=== PATIENT | female | born 1935 | race Caucasian/White ===

== ENCOUNTER 2017-11-02 15:24 | Outpatient (CLI) | payer MEDICARE, OTHER | END 2017-11-02 15:25 | disposition home or self-care (01) | LOC: BICMAMMO 15:24 | PROVIDERS: ATTEND Family Medicine | DX: Z12.31 Encounter for screening mammogram for malignant neoplasm of breast (principal); Z85.038 Personal history of other malignant neoplasm of large intestine; R92.1 Mammographic calcification found on diagnostic imaging of breast | CPT/HCPCS: 77063; 77067 ==

== ENCOUNTER 2018-08-17 13:06 | Outpatient (CLI) | payer MEDICARE, OTHER ==
--- NOTE | 2018-08-17 16:10 | BD ---
DEXA BONE MINERAL DENSITOMETRY STUDY: 08/17/2018 HISTORY: Postmenopausal. Asymptomatic menopausal state. FINDINGS: LUMBAR SPINE BMD (g/cm2) T-SCORE Z-SCORE L1 0.846 -1.2 1.1 L2 0.942 -0.8 1.9 L3 0.887 -1.8 1.0 L4 1.032 -0.3 2.6 L1-L4 0.936 -1.0 1.7 LEFT FEMORAL NECK 0.606 -2.2 0.2 TOTAL FEMUR 0.799 -1.2 1.0 There has been an interval increase in the bone mineral density of 10.6% when compared to the study o n 08/06/2012 and a 5.3% increase in bone mineral density of the left femoral neck compared to prior s tudy. IMPRESSION: 1. Moderate osteopenia of the left femoral neck, indicating a four-fold increased risk for fracture. 2. Mild osteopenia of the lumbar spine, indicating a two-fold increased risk for fracture. 3. The 10-year major osteoporotic risk fracture is 23% with a 10-year hip fracture risk of 6.9%. POS: EMANUEL
== END 2018-08-17 13:07 | disposition home or self-care (01) ==
LOC: BICMAMMO 13:06
PROVIDERS: ATTEND Family Medicine
DX: Z00.00 Encounter for general adult medical examination without abnormal findings (principal); Z78.0 Asymptomatic menopausal state; M85.89 Other specified disorders of bone density and structure, multiple sites
CPT/HCPCS: 77080

== ENCOUNTER 2018-11-03 13:51 | Outpatient (CLI) | payer MEDICARE, OTHER ==
--- NOTE | 2018-11-03 14:34 | MMO ---
Bilateral MAMMO Bilat Screen [facility]. CLINICAL HISTORY: Patient is 83 years old and is seen for screening. The patient has no family history of breast cancer. The patient has a history of colon cancer in 2009. VIEWS: The views performed were: bilateral craniocaudal with tomosynthesis and bilateral mediolateral oblique with tomosynthesis. FILMS COMPARED: The present examination has been compared to prior imaging studies performed at [facility] on 10/16/2011, 10/21/2012, 10/25/2013, 10/27/2014, 10/30/2015, 10/30/2016 and 11/02/2017, and at [facility] on 12/15/2008 and 12/18/2009. MAMMOGRAM FINDINGS: There are scattered fibroglandular densities. There are vascular calcifications seen in both breasts. There are no suspicious masses, suspicious calcifications, or new areas of architectural distortion. IMPRESSION: THERE IS NO MAMMOGRAPHIC EVIDENCE OF MALIGNANCY. A ROUTINE FOLLOW-UP MAMMOGRAM IN 1 YEAR IS RECOMMENDED. THE RESULTS OF THIS EXAM WERE SENT TO THE PATIENT. ACR BI-RADS Category 2 - Benign finding MAMMOGRAPHY NOTE: 1. A negative mammogram report should not delay a biopsy if a dominant of clinically suspicious mass is present. 2. Approximately 10% to 15% of breast cancers are not detected by mammography. 3. Adenosis and dense breasts may obscure an underlying neoplasm.
== END 2018-11-03 13:52 | disposition home or self-care (01) ==
LOC: BICMAMMO 13:51
PROVIDERS: ATTEND Family Medicine
DX: Z12.31 Encounter for screening mammogram for malignant neoplasm of breast (principal); Z85.038 Personal history of other malignant neoplasm of large intestine
CPT/HCPCS: 77063; 77067

== ENCOUNTER 2019-05-06 17:03 | Inpatient (IN) | payer MEDICARE, OTHER ==
--- NOTE | 2019-05-06 19:15 | CT ---
CT Stone Protocol: 05/06/2019 6:43 PM HISTORY: Left-sided abdominal pain and urinary tract infection; history of colon cancer. COMPARISON: 08/24/2018 TECHNIQUE: Multiple contiguous axial images were obtained and a CT of the abdomen and pelvis without IV contrast . Coronal and sagittal reformats were performed. FINDINGS: This examination is limited for the evaluation of solid organs and vascular structures due to the lac k of intravenous contrast. Lower Chest: within normal limits. Abdomen: Liver: within normal limits. Bile Ducts: Normal caliber. Gallbladder: Hyperdensity in the dependent aspect likely represents gallstones. Pancreas: The pancreatic duct is severely dilated but stable with a large calcification in the region of pancreatic head measuring 8 mm in size. There is no significant residual parenchymal tissue remaining. Calcific lesions are seen scattered throughout the thyroid gland. Spleen: within normal limits. Adrenals: within normal limits. Kidneys: Moderate left hydronephrosis. Nonobstructing calcifications in the left kidney measuring up to 4 mm in size. No right hydronephrosis. A small hyperdense cyst is seen in the left kidney. Pelvis: Reproductive Organs: The uterus is small and atrophic. There is stable soft tissue density associated with surgical clips in the presacral space which likely represents postsurgical change. Ureters: 5 mm calcification in the distal left ureter at the ureterovesical junction with moderate hy droureter. Bladder: within normal limits. Bowel: Normal caliber. There is an ostomy in the left lower quadrant of the abdomen. Mesenteric Lymph Nodes: No enlarged mesenteric lymph nodes. Peritoneum: No ascites or free air, no fluid collection. Vessels: Atherosclerotic calcifications in the aorta Retroperitoneum: within normal limits. Abdominal Wall: within normal limits. Bones: Degenerative changes in the spine. IMPRESSION: 1. Left distal ureteral calcification with moderate left hydronephrosis 2. Nonobstructing left renal calcifications 3. Cholelithiasis 4. Pancreatic duct calcifications with enlargement of the pancreatic duct remains stable.
[2019-05-06] MEDS ORDERED: Sodium Chloride 0.9% 100 ML ONE (21:03)
[2019-05-06] MEDS ORDERED: cefTRIAXone\\ROCEPHIN 1 GM VIAL ONE (21:03)
[2019-05-06 21:30] LABS: #Lymphocytes 1.1 thou/uL (1.20-3.40); #Monocytes 0.8 thou/uL (0.11-0.59); #Neutrophils 6.2 thou/uL (1.40-6.50); %Basophils 0.5 % (0.0-1.0); %Eosinophils 0.4 % (0.0-10.0); %Monocytes 10.3 % (0.0-10.0); %Neutrophils 75.7 % (42.0-75.0); Mean Corpuscular HGB CONC 33.8 g/dL (32.0-36.0); Mean Corpuscular Volume 97.4 fL (78.0-98.0); Mean Platelet Volume 7.4 fL (7.4-10.4); Platelet Count 163 thou/uL (130-400); RBC Distribution Width 12.2 % (11.5-14.5); Red Blood Cell (RBC) Count 3.33 mill/uL (4.20-5.40); White Blood Cell (WBC) Count 8.2 thou/uL (4.8-10.8)
--- NOTE | 2019-05-06 21:41 | RAD ---
EXAM: Single view of the chest HISTORY: Left chest pain COMPARISON: 01/21/2015 FINDINGS: Single view of the chest shows a normal sized cardiomediastinal silhouette. The Mediport i s unchanged in position. Increased interstitial markings are present. There is no evidence of consolidation, mass, or pleural effusion. Degenerative changes are seen in the spine. IMPRESSION: No evidence of acute cardiopulmonary disease
[2019-05-06 21:54] LABS: ALT (SGPT) 16 U/L (8-55); AST (SGOT) 21 U/L (5-34); Albumin 3.9 g/dL (3.4-4.8); Alkaline Phosphatase 53 U/L (40-110); Anion Gap 15 mmol/L (10-20); BUN (Urea Nitrogen) 31 mg/dL (9.8-20.1); Bilirubin, Total 0.5 mg/dL (0.2-1.2); Calc. Creatinine Clearance 0 mL/min (70-130); Carbon Dioxide 17 mmol/L (23-31); Chloride 110 mmol/L (98-107); Estimated GFR-MDRD 16; Globulin 2.5 g/dL (2.4-3.5); Glucose 106 mg/dL (83-110); Potassium 4.5 mmol/L (3.5-5.1); Protein, Total 6.4 g/dL (6.0-8.3); Sodium 137 mmol/L (136-145)
[2019-05-06] MEDS ORDERED: Ondansetron ODT 4 MG TAB SL PRN (22:20)
[2019-05-06] MEDS ORDERED: Acetaminophen 325 MG TAB PO PRN (22:20)
[2019-05-06] MEDS ORDERED: Ondansetron PF 4 MG/2 ML Vial IVP PRN (22:20)
[2019-05-06] MEDS ORDERED: Sodium Chloride 0.9% 1,000 ML IV SCH (22:20)
[2019-05-06 22:29] VITALS: BMI 23.6
[2019-05-07] MEDS: cefTRIAXone\\ROCEPHIN 1 GM in Sodium Chloride 0.9% 100 ML IVPB SCH (07:51)
[2019-05-07] MEDS ORDERED: Iothalamate Meglumine 60% 50 ML VIAL FS ONE (07:56)
[2019-05-07] MEDS ORDERED: ePHEDrine 50 MG/ML VIAL ONE (08:00)
[2019-05-07] MEDS ORDERED: PROPOFOL 200 MG/20 ML VIAL ONE (08:00)
[2019-05-07] MEDS ORDERED: Lidocaine 1% PF 5 ML VIAL ONE (08:00)
[2019-05-07] MEDS ORDERED: Fentanyl 100 MCG/2 ML VIAL ONE (08:04)
[2019-05-07] MEDS ORDERED: Morphine 2 MG/ML SYRINGE SLOW IVP PRN (08:57)
[2019-05-07] MEDS ORDERED: Phenazopyridine HCl 97.5 MG TABLET PO PRN (08:57)
[2019-05-07] MEDS ORDERED: HYDROcodone/Acetaminophen 5/325 mg Tablet PO PRN ×2 (08:57)
[2019-05-07] MEDS ORDERED: Morphine 4 MG/ML VIAL SLOW IVP PRN (08:57)
[2019-05-07] MEDS ORDERED: diphenhydrAMINE 50 MG/ML VIAL IVP PRN (08:57)
[2019-05-07] MEDS ORDERED: Promethazine HCl 25 MG/ML VIAL SLOW IVP PRN (08:59)
[2019-05-07] MEDS ORDERED: Ondansetron HCl/PF 4 MG/2 ML Vial IVP PRN (08:59)
[2019-05-07] MEDS ORDERED: Promethazine HCl 25 MG/ML VIAL IM PRN (08:59)
[2019-05-07] MEDS ORDERED: Famotidine/PF 20 mg/2ml Vial SLOW IVP SCH (09:00)
--- NOTE | 2019-05-07 09:19 | CON ---
DATE OF CONSULTATION: 05/07/2019 PRIMARY UROLOGIST: Brandon Bennett MD REASON FOR CONSULT: Left ureteral calculi. HISTORY OF PRESENT ILLNESS: Ms. Moss is a pleasant 84-year-old female, with history of rectal cancer, status post neoadjuvant chemo, APR with negative margins. She is followed by local GI, as well as [facility] for her colorectal cancer. Her primary urologist is Dr. Bennett. She states that she called his office on Thursday, as she was having flank pain. patient was transitioned to the emergency room. She does relate that she was seen by her GI specialist, she was unclear if she was having discomfort from a recent colonoscopy versus an obstructing ureteral stone. She states that Dr. Bennett has been aware of her ureteral calculi, scheduled for surgery this Thursday, however, due to persistent discomfort, she presented to the emergency room. CT in the emergency room demonstrates left distal ureteral calculi near the UVJ with hydronephrosis. She is afebrile with no evidence of leukocytosis, however, does have acute renal insufficiency from partially obstructing ureteral calculi. Currently, she is resting comfortably. Denies fever or chills. PAST MEDICAL HISTORY: Includes history of colorectal cancer, history of arrhythmia, status post ablation, hypercholesteremia, history of recurrent kidney stone. PAST SURGICAL HISTORY: APR, permanent colostomy, heart ablation, right ankle surgery, status post left ureteroscopy, laser lithotripsy, 4.6 x 24 double-J ureteral stent placement by Dr. Bennett in November of 2016. ALLERGIES: TO SULFA. SOCIAL HISTORY: She is a . Denies tobacco, illicit drugs, or alcohol use. HOME MEDICATIONS: Include; 1. Viactiv. 2. Centrum. 3. MiraLAX. 4. Diltiazem. 5. Crestor. 6. Aspirin. 7. Premarin. FAMILY HISTORY: Negative. REVIEW OF SYSTEMS: Ten-point review of systems as above, otherwise noncontributory. PHYSICAL EXAMINATION: VITAL SIGNS: Her vital signs are stable with temperature 99.7, pulse 64, respiratory rate 18, and blood pressure 134/93. GENERAL: The patient appears to be in no acute distress. HEENT: Unremarkable. HEART: Regular rate. LUNGS: Clear. ABDOMEN: Soft, nontender, and nondistended. No rigidity. Colostomy with moderately hard stool. GENITOURINARY: Severe vaginal atrophy. EXTREMITIES: No cyanosis or clubbing. Trace pedal edema. PSYCHIATRIC: Appears to be appropriate and intact. NEUROLOGIC: No gross focal deficits of concern. PERTINENT LABORATORY AND IMAGING DATA: White count 8, hemoglobin 12, and platelet 163. Creatinine is 2.8. Baseline creatinine is from 0.9 to 1.6. UA is contaminated, 4 to 6 epithelials, 11 to 20 wbc's, 0 to 3 rbc's, moderate leukocytes, negative nitrites. Culture has been obtained by the ER. CT of the stone protocol, which I reviewed myself and which compared to May [address] with contrast was obtained. There is left hydronephrosis due to distal ureteral calculi measuring about 5 to 7 mm near the left UVJ. There are nonobstructing left kidney stones as well x2. The right kidney is smaller than the left kidney, with what appears to be extrarenal pelvis. The morphology is confirmed on prior CT scan with contrast in May 2016, which I reviewed myself; demonstrating symmetric nephrogram IMPRESSION AND PLAN: Ms. Moss is a pleasant 84-year-old female with history of recurrent kidney stone, history of left ureteral calculi, scheduled for surgery with Dr. Bennett this Thursday. However, presented to the emergency room due to progressive intractable discomfort with renal insufficiency. The patient has been n.p.o., Rocephin provided, plan OR with cysto, left retrograde stent. Informed the patient that we will observe her for the next 24 to 48 hours to monitor renal function recovery, which we anticipate and may follow up with her urologist. Job ID: [id number] [facility]
--- NOTE | 2019-05-07 09:19 | OP ---
DATE OF PROCEDURE: 05/07/2019 PREOPERATIVE DIAGNOSIS: History of recurrent kidney stone, left hydroureteronephrosis with acute renal insufficiency secondary to 6-to 7-mm distal ureteral calculi. POSTOPERATIVE DIAGNOSIS: History of recurrent kidney stone, left hydroureteronephrosis with acute renal insufficiency secondary to 6-to 7-mm distal ureteral calculi. PROCEDURES PERFORMED: Cystoscopy, left retrograde pyelogram, 6 x 24 double-J ureteral stent exchange, excisional biopsy, removal of incidental papillary lesion suspicious for transitional cell carcinoma, fulguration of biopsy site. ANESTHESIA: LMA. COMPLICATIONS: None apparent. ESTIMATED BLOOD LOSS: Minimal/none. DISPOSITION: To recovery room in stable condition. DRAINS: A 6 x 24 stent, 18-Peruvian 30 mL three-way Aragon catheter, CBI port plugged, to gravity bag. INTRAOPERATIVE FINDINGS: 1. 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 2. Severe vaginal atrophy. 3. Obstructing left ureteral calculi. 4. Incidental left 7-8-mm papillary bladder lesion consistent with transitional cell carcinoma, about 1 cm lateral to the left UO. SPECIMEN: Bladder biopsy. INDICATIONS FOR PROCEDURE AND HISTORY: Ms. Moss is a pleasant 84-year-old female with history of colorectal cancer, recurrent kidney stones, followed by Dr. Bennett. She was scheduled for treatment of her left ureteral calculi this Thursday, however, she was transitioned to the emergency room due to progressive worsening of her left flank pain by Dr. Bennett. She presented to the emergency room with acute kidney injury, no evidence of fever, chills, or leukocytosis. She has been fully informed regarding indications for ureteral stent, and desired to proceed. Risks and complications and indications were reviewed with the patient in detail. DESCRIPTION OF PROCEDURE: The patient was taken to the operating room and placed in dorsal lithotomy position with the genital area prepped and draped in the usual surgical sterile fashion. A 22-Peruvian cystoscope was utilized. She has severe atrophia of the vaginal region due to radiation, her urethra meatus is subtle. A 22-Peruvian cystoscope was passed. Upon entering the bladder, there is diffuse prominent vascularity of the bladder mucosa consistent with radiation cystitis. The right UO is identified, and in normal orthotopic position, left UO was patulous. We surveyed the bladder, which demonstrated incidental papillary bladder tumor about 1 cm lateral to the left UO consistent with transitional cell carcinoma. I did not see any other tumor of concern. At this time, we intubated the left UO with a 5-Peruvian open-ended catheter. We gently performed a retrograde pyelogram demonstrating a filling defect in the left distal ureter consistent with the stones. Tortuosity of the proximal ureter was noted. We were able to negotiate a 0.35 Sensor wire to the left upper pole and a 6 x 24 double-J ureteral stent placed without difficulty. At this time we transitioned to sterile water irrigation and obtained a cold cup biopsy/removal of the bladder tumor en bloc. The bed of the tumor was fulgurated with endoscopic Bugbee. An 18-Peruvian three-way Aragon catheter was placed as she does have significant radiation cystitis changes. Urine output is pink tinged to clear. She will continue her broad-spectrum antibiotic therapy until urine culture is finalized. Anticipate Aragon catheter can be removed in a few days pending her clinical course. hold anticoagulation for now and monitor her urine output for hematuria. will inform patient's clinical history, intraoperative findings to her primary urologist, Dr. Bennett, when he is back on service. Job ID: [id number] [facility]
[2019-05-07] MEDS: Trospium 20 MG TAB PO SCH ×2 (10:09→20:36)
[2019-05-07] MEDS: Docusate 100 MG CAP PO SCH ×2 (10:10→20:36)
--- NOTE | 2019-05-07 11:04 | RAD ---
RETROGRADE IVP: A single fluoroscopic image is presented from the OR. INDICATION: Intraoperative imaging. Acute cystitis. FINDINGS: The single image shows a double pigtail left ureteral stent in position. POS: [facility]
--- NOTE | 2019-05-07 11:54 | HP ---
PRIMARY CARE PHYSICIAN: Cornelio Burroughs MD CHIEF COMPLAINT: Worsening left flank pain. HISTORY OF PRESENT ILLNESS: An 84-year-old female with past medical history significant for rectal cancer, status post surgery and colostomy as well as neoadjuvant chemotherapy and radiation therapy, who presented with acute onset of worsening left flank pain. The patient with known history of nephrolithiasis, follows up with Dr. Bennett. There was a concern of complication of recently performed colonoscopy at [facility], hence the patient was evaluated with CT scan of the abdomen, which showed left ureteric stone at the UV junction with hydronephrosis. The patient also reported poor oral intake. There was no history of fever, chills, change in mental status, dizziness, leg swelling, but the patient admitted to increasing consistency of the stool via the colostomy. The patient denied dysuria, but she is, however, incontinent of urine. Urology consult was obtained and the patient was taken to OR for further treatment. She is status post double-J stent placement as well as biopsy of incidental papular lesion in the bladder as well as fulguration of the biopsy site. The patient also was noticed to have acute increase in creatinine from baseline 1.3 to 2.4. The patient reports improvement of flank pain post the urological procedure. Currently, pain is 0/10 down from 10/10 on presentation. PAST MEDICAL HISTORY: 1. Colorectal cancer, status post surgery. 2. Status post colostomy. 3. History of arrhythmia, status post ablation. 4. Hyperlipidemia. 5. History of recurring kidney stones. PAST SURGICAL HISTORY: 1. Permanent colostomy. 2. Heart ablation. 3. Right ankle surgery. 4. Prior cystoscopy with ureteroscopy and laser lithotripsy and double-J stent placement. FAMILY HISTORY: Reviewed, but noncontributory. SOCIAL HISTORY: The patient lives with family. Denied alcohol smoking or recreational drug use. The patient's daughter is the surrogate decision maker. The patient wants to be full code. ALLERGIES: SULFA. CURRENT HOME MEDICATIONS: 1. Premarin one vaginal application every other day. 2. Aspirin 325 daily. 3. Calcium with vitamin D3 one tablet p.o. b.i.d. 4. Diltiazem 60 mg p.o. b.i.d. 5. Multivitamin with iron one tablet p.o. daily. 6. MiraLAX 17 g p.o. daily. 7. Potassium chloride 20 mEq p.o. daily. 8. Crestor 10 mg p.o. daily. REVIEW OF SYSTEMS: Twelve-point review of system performed was negative other than pertinent positives and negatives included in the History of Present Illness. PHYSICAL EXAMINATION: VITAL SIGNS: Temperature 98.6, pulse 66, respiratory rate 18, SpO2 of 97% on room air, and blood pressure is 124/68. GENERAL: Healthy-looking elderly female, in no distress. Afebrile. Anicteric. Acyanotic. HEENT: Normocephalic, atraumatic. Oral mucosa is dry. NECK: Supple. Nontender with good range of motion. CARDIOVASCULAR: Regular rhythm and rate with normal heart sounds 1 and 2. RESPIRATORY: Good air entry bilaterally with no crackle or rhonchi or use of accessory muscles. GASTROINTESTINAL: Full, soft, nontender, and nondistended with normal bowel sounds. Left lower quadrant colostomy noted with hard stool in the bag. UROGENITAL: Aragon catheter in place draining bloody urine. EXTREMITIES: Grossly normal looking, atraumatic with no edema or erythema. CENTRAL NERVOUS SYSTEM: Conscious, alert, oriented x3 with appropriate mental status. Cranial nerves II through XII are grossly intact. DIAGNOSTIC DATA: CBC performed on May 06 showed WBC count of 8.2, hemoglobin of 11.0, MCV of 97.4, and platelets of 163. CMP performed on May 06 showed sodium 137, potassium 4.5, chloride 110, CO2 of 17, BUN 31, creatinine 2.82, glucose 106, calcium 9.0, total bilirubin 0.5, AST 21, ALT 16, alkaline phosphatase 53, total protein 6.4, and albumin 3.9. CT scan of the abdomen and pelvis stone protocol showed left distal ureteral calcification with moderate left hydronephrosis, nonobstructing left renal calcification, cholelithiasis, pancreatic duct calcification with enlargement of the pancreatic duct, which has remained stable. EKG showed normal sinus rhythm with rate of 68. No obvious ischemic changes were noted. ASSESSMENT: 1. Nephrolithiasis with left hydronephrosis. 2. Acute on chronic renal failure: Most likely due to obstructive uropathy with possible contribution from prerenal etiology due to dehydration and from poor oral intake. 3. Metabolic acidosis. 4. Left flank pain: Resolved. 5. Colorectal cancer, status post resection with colostomy. 6. Incidental finding of bladder lesion concerning for cancer, status post biopsy and fulguration of bladder biopsy sites. 7. Physical deconditioning. PLAN: 1. Continue empirical antibiotic therapy with Rocephin. 2. Get urinalysis with urine culture if indicated. 3. Start IV fluid therapy with sodium bicarb containing IV fluids given hyperchloremic metabolic acidosis. 4. Monitor renal function. 5. Consult PT and OT for restorative therapy. 6. Other treatment as per urologist. 7. Restart diet. [place] oral intake advised. 8. Code status, full code. Daughter is the surrogate decision maker. 9. Repeat renal function panel in the morning. Further treatment to follow depending on hospital course. Job ID: [id number]
[2019-05-07 12:26] LABS: Albumin 3.8 g/dL (3.4-4.8); Anion Gap 14 mmol/L (10-20); BUN (Urea Nitrogen) 31 mg/dL (9.8-20.1); BUN/Creatinine Ratio 11.65; Calc. Creatinine Clearance 15 mL/min (70-130); Calcium 8.7 mg/dL (7.8-10.44); Carbon Dioxide 18 mmol/L (23-31); Chloride 111 mmol/L (98-107); Estimated GFR-MDRD 17; Glucose 98 mg/dL (83-110); Phosphorus 4.3 mg/dL (2.3-4.7); Potassium 3.8 mmol/L (3.5-5.1); Sodium 139 mmol/L (136-145)
[2019-05-07 13:09] LABS: Bilirubin Negative (Negative); Blood, Urine 3+ (Negative); Glucose, Urine (Dipstick) Normal (Negative); Leukocyte 75 Leu/uL (Negative); Nitrite Negative (Negative); Protein, Urine (Dipstick) 50 mg/dL (Neg-Trace); RBC/HPF Greater than 50 HPF (0-3); Squamous Epithelial 0-3 HPF (0-3); Urobilinogen Normal mg/dL (Less than 2); WBC/HPF 21-50 HPF (0-3)
[2019-05-07 13:10] LABS: Bacteria/HPF 1+ HPF (None Seen)
[2019-05-07 13:11] LABS: Clarity Hazy (Clear)
[2019-05-07 13:13] LABS: Urine Culture Reflex Yes Yes
[2019-05-07] MEDS ORDERED: Prevnar 13-Val Conj/PF 0.5 ML SYRINGE IM ONE (21:00)
[2019-05-08] MEDS: Sodium Bicarbonate 75 MEQ in Sodium Chloride 0.45% 1,000 ML IV SCH ×3 (01:57→21:27)
[2019-05-08 05:47] LABS: #Eosinphils 0.2 thou/uL (0.0-0.7); #Lymphocytes 1.5 thou/uL (1.20-3.40); #Monocytes 0.6 thou/uL (0.11-0.59); #Neutrophils 2.7 thou/uL (1.40-6.50); %Basophils 0.8 % (0.0-1.0); %Eosinophils 3.2 % (0.0-10.0); %Lymphocytes 30.1 % (21.0-51.0); %Monocytes 11.5 % (0.0-10.0); %Neutrophils 54.4 % (42.0-75.0); Hemoglobin 10.1 g/dL (12.0-16.0); Mean Corpuscular HGB CONC 33.7 g/dL (32.0-36.0); Mean Corpuscular Hemoglobin 32.9 pg (27.0-31.0); Mean Corpuscular Volume 97.8 fL (78.0-98.0); Mean Platelet Volume 7.6 fL (7.4-10.4); Platelet Count 149 thou/uL (130-400); RBC Distribution Width 12.2 % (11.5-14.5); Red Blood Cell (RBC) Count 3.08 mill/uL (4.20-5.40)
[2019-05-08 06:09] LABS: Anion Gap 13 mmol/L (10-20); BUN (Urea Nitrogen) 28 mg/dL (9.8-20.1); Calc. Creatinine Clearance 17 mL/min (70-130); Calcium 7.9 mg/dL (7.8-10.44); Carbon Dioxide 21 mmol/L (23-31); Chloride 114 mmol/L (98-107); Estimated GFR-MDRD 20; Glucose 89 mg/dL (83-110); Potassium 4.1 mmol/L (3.5-5.1); Sodium 144 mmol/L (136-145)
[2019-05-08] MEDS: cefTRIAXone\\ROCEPHIN 1 GM in Sodium Chloride 0.9% 100 ML IVPB SCH (08:09)
[2019-05-08] MEDS: Docusate 100 MG CAP PO SCH ×2 (08:13→20:28)
[2019-05-08] MEDS: Famotidine/PF 20 mg/2ml Vial SLOW IVP SCH (08:15)
[2019-05-08] MEDS: Cepastat Lozenges 1 LOZ PO PRN (08:17)
--- NOTE | 2019-05-08 12:08 | PRG ---
DATE OF SERVICE: 05/08/2019 SUBJECTIVE: The patient is feeling better. Flank pain resolved. OBJECTIVE: VITAL SIGNS: Stable. She is afebrile. Is and Os, 480 in and 1450 out. Urine output is ritu, pink-tinged. ABDOMEN: Soft, nontender, nondistended. LABORATORY DATA: White count 5, hemoglobin 10, platelet 149. BUN 28, creatinine 2.3. Admitting creatinine is 2.8. Urine culture, preliminary, negative. Currently, on Rocephin. IMPRESSION AND PLAN: 1. Ms. Moss is an 84-year-old female with history of recurrent kidney stone, presented due to left flank pain, distal ureteral stone, postop day #1, status post cysto, left retrograde stent, concomitant bladder tumor, excisional biopsy, fulguration. Pathology is pending. 2. Cystoscopy demonstrated radiation cystitis changes. Continue indwelling Aragon catheter and antibiotic therapy. 3. Acute renal insufficiency, multifactorial. Continue to monitor her renal function, avoid nephrotoxins. Await pathology. The patient desires to be observed until Dr. Bennett's return on Thursday, which is reasonable as we are monitoring her renal function for recovery. Continue indwelling Aragon catheter for now. Job ID: [id number]
--- NOTE | 2019-05-08 19:19 | PDOC.HOSPP ---
- Subjective Encounter Date: 05/08/19 Encounter Time: 11:18 Subjective: 84 y/o female with rectal cancer admitted with left flank pain. Found to have hydronephrosis and she is s/p stent placement. feeling better. pain has subsided. No fever. - Objective Vital Signs & Weight: Vital Signs (12 hours) Temp Pulse Resp BP Pulse Ox 05/08/19 16:05 99.6 F 71 16 146/82 H 99 05/08/19 11:17 98.6 F 72 16 101/63 97 05/08/19 08:00 97 05/08/19 07:46 98.7 F 59 L 16 146/79 H 97 Weight Weight 125 lb I&O: 05/07/19 05/08/19 05/09/19 06:59 06:59 06:59 Intake Total 1025 480 960 Output Total 1450 Balance 1025 -970 960 Result Diagrams: 05/08/19 05:24 05/08/19 05:24 Hospitalist ROS - Medication Medications: Active Medications Generic Name Dose Route Start Last Admin Trade Name Freq PRN Reason Stop Dose Admin Diltiazem HCl 60 mg 05/08/19 09:00 05/08/19 08:13 Cardizem PO 60 mg BID JAM Administration Docusate Sodium 100 mg 05/07/19 09:00 05/08/19 08:13 Colace PO 100 mg BID JAM Administration Famotidine 20 mg 05/08/19 09:00 05/08/19 08:15 Pepcid SLOW IVP 20 mg DAILY JAM Administration Ceftriaxone Sodium 1 gm/ 100 mls @ 200 mls/hr 05/07/19 09:00 05/08/19 08:09 Sodium Chloride IVPB 100 mls DAILY JAM Administration Sodium Bicarbonate 75 meq/ 1,075 mls @ 125 mls/hr 05/07/19 11:30 05/08/19 12: 40 Sodium Chloride IV 1,075 mls INF JAM Administration Throat Lozenges 1 cordelia 05/08/19 06:49 05/08/19 08:17 Cepastat Lozenges PO 1 cordelia PRN PRN Administration SORE THROAT Trospium 20 mg 05/07/19 09:00 05/07/19 20:36 Trospium PO 20 mg BID JAM Administration - Exam General Appearance: awake alert Eye: anicteric sclera ENT: normocephalic atraumatic, moist mucosa Neck: supple, symmetric Respiratory: no wheezes, no rales, normal chest expansion Gastrointestinal: soft, non-tender, non-distended, normal bowel sounds Gastrointestinal - other findings: colostomy bag in place Neurological: cranial nerve grossly intact, no focal deficits Psychiatric: normal affect, A&O x 3 Hosp A/P (1) Hydronephrosis of left kidney Code(s): N13.30 - UNSPECIFIED HYDRONEPHROSIS Status: Acute (2) Nephrolithiasis Status: Acute (3) Status post colostomy Code(s): Z93.3 - COLOSTOMY STATUS Status: Acute (4) Rectal cancer Code(s): C20 - MALIGNANT NEOPLASM OF RECTUM Status: Acute (5) Bladder cancer Status: Acute (6) HTN (hypertension) Code(s): I10 - ESSENTIAL (PRIMARY) HYPERTENSION Status: Acute (7) SAURABH (acute kidney injury) Code(s): N17.9 - ACUTE KIDNEY FAILURE, UNSPECIFIED Status: Acute (8) CKD (chronic kidney disease) stage 3, GFR 30-59 ml/min Code(s): N18.3 - CHRONIC KIDNEY DISEASE, STAGE 3 (MODERATE) Status: Acute (9) Nausea & vomiting Code(s): R11.2 - NAUSEA WITH VOMITING, UNSPECIFIED Status: Acute (10) Volume depletion Code(s): E86.9 - VOLUME DEPLETION, UNSPECIFIED Status: Acute - Plan Continue IVF Continue antibiotics. await microbe ID and susceptibity [place] oral intake. Await biopsy of bladd mass stone treatment as per Urology. follow renal function with IVF therapy
[2019-05-08] MEDS: Trospium 20 MG TAB PO SCH (20:27)
[2019-05-09] MEDS: Cepastat Lozenges 1 LOZ PO PRN (04:47)
[2019-05-09] MEDS ORDERED: Acetaminophen 325 MG TAB PO PRN (05:08)
[2019-05-09 06:33] LABS: Albumin 3.2 g/dL (3.4-4.8); Anion Gap 15 mmol/L (10-20); BUN (Urea Nitrogen) 21 mg/dL (9.8-20.1); BUN/Creatinine Ratio 10.82; Calc. Creatinine Clearance 20 mL/min (70-130); Calcium 7.6 mg/dL (7.8-10.44); Carbon Dioxide 23 mmol/L (23-31); Chloride 109 mmol/L (98-107); Estimated GFR-MDRD 25; Glucose 95 mg/dL (83-110); Phosphorus 3.4 mg/dL (2.3-4.7); Potassium 3.7 mmol/L (3.5-5.1); Sodium 143 mmol/L (136-145)
[2019-05-09] MEDS: Sodium Bicarbonate 75 MEQ in Sodium Chloride 0.45% 1,000 ML IV SCH (06:45)
--- NOTE | 2019-05-09 08:12 | PRG ---
DATE OF SERVICE: 05/09/2019 SUBJECTIVE: The patient without complaints. OBJECTIVE: VITAL SIGNS: Stable. ABDOMEN: Soft, nontender, nondistended. : Urine output 960, ritu pink-tinged. PERTINENT LABORATORY DATA: Creatinine 1.94. Admitting creatinine of 2.82. IMPRESSION AND PLAN: Ms. Moss is a pleasant 84-year-old female with, 1. History of recurrent kidney stone. 2. History of left ureteral calculi, tentatively scheduled for stone treatment with Dr. Bennett on Thursday. Admitted over the weekend due to intractable pain and acute renal injury multifactorial, status post stent with concomitant bladder tumor treated. Pathology pending. Continue indwelling Aragon catheter and Rocephin for now. Dr. Bennett off service until tomorrow. will inform him regarding the patient's admission and intraoperative findings. Job ID: [id number] [facility]
[2019-05-09] MEDS: cefTRIAXone\\ROCEPHIN 1 GM in Sodium Chloride 0.9% 100 ML IVPB SCH (09:02)
[2019-05-09] MEDS: Trospium 20 MG TAB PO SCH ×2 (09:03→19:55)
[2019-05-09] MEDS: Docusate 100 MG CAP PO SCH ×2 (09:03→19:55)
[2019-05-09] MEDS: Famotidine/PF 20 mg/2ml Vial SLOW IVP SCH (09:04)
[2019-05-09] MEDS: FLU VACC TS2019-20(65YR UP)/PF 180 MCG/0.5 ML SYRINGE IM ONE (11:02)
--- NOTE | 2019-05-09 13:28 | PDOC.HOSPP ---
- Subjective Encounter Date: 05/09/19 Encounter Time: 13:26 Subjective: 84 y/o female with rectal cancer admitted with left flank pain. Found to have hydronephrosis and she is s/p stent placement. Feeling better. Pain has subsided. No fever, nausea or vomiting. - Objective Vital Signs & Weight: Vital Signs (12 hours) Temp Pulse Resp BP Pulse Ox 05/09/19 11:25 98.4 F 71 16 107/68 95 05/09/19 07:49 98.9 F 57 L 16 138/80 95 05/09/19 04:00 98.9 F 60 16 124/68 96 Weight Weight 125 lb I&O: 05/08/19 05/09/19 05/10/19 06:59 06:59 06:59 Intake Total 135 983 6078 Output Total 1450 1725 Balance -970 960 275 Result Diagrams: 05/08/19 05:24 05/09/19 05:36 Hospitalist ROS - Medication Medications: Active Medications Generic Name Dose Route Start Last Admin Trade Name Freq PRN Reason Stop Dose Admin Acetaminophen 650 mg 05/09/19 05:08 05/09/19 05:25 Tylenol PO 650 mg Q8H PRN Administration Fever/Mild Pain Diltiazem HCl 60 mg 05/08/19 09:00 05/09/19 09:04 Cardizem PO 60 mg BID JAM Administration Docusate Sodium 100 mg 05/07/19 09:00 05/09/19 09:03 Colace PO 100 mg BID JAM Administration Famotidine 20 mg 05/08/19 09:00 05/09/19 09:04 Pepcid SLOW IVP 20 mg DAILY JAM Administration Ceftriaxone Sodium 1 gm/ 100 mls @ 200 mls/hr 05/07/19 09:00 05/09/19 09:02 Sodium Chloride IVPB 100 mls DAILY JAM Administration Throat Lozenges 1 cordelia 05/08/19 06:49 05/09/19 04:47 Cepastat Lozenges PO 1 cordelia PRN PRN Administration SORE THROAT Trospium 20 mg 05/07/19 09:00 05/09/19 09:03 Trospium PO 20 mg BID JAM Administration - Exam General Appearance: awake alert Eye: PERRL, anicteric sclera ENT: normocephalic atraumatic Neck: supple, no JVD Heart: RRR Respiratory: no rales, normal chest expansion Gastrointestinal: soft, non-tender, non-distended, normal bowel sounds Gastrointestinal - other findings: Colostomy and nayak catheter in place Extremities: no cyanosis, no edema Neurological: cranial nerve grossly intact, no focal deficits Psychiatric: normal affect, A&O x 3 Hosp A/P (1) Hydronephrosis of left kidney Code(s): N13.30 - UNSPECIFIED HYDRONEPHROSIS Status: Acute (2) Nephrolithiasis Status: Acute (3) Status post colostomy Code(s): Z93.3 - COLOSTOMY STATUS Status: Acute (4) Rectal cancer Code(s): C20 - MALIGNANT NEOPLASM OF RECTUM Status: Acute (5) Bladder cancer Status: Acute (6) HTN (hypertension) Code(s): I10 - ESSENTIAL (PRIMARY) HYPERTENSION Status: Acute (7) SAURABH (acute kidney injury) Code(s): N17.9 - ACUTE KIDNEY FAILURE, UNSPECIFIED Status: Acute (8) CKD (chronic kidney disease) stage 3, GFR 30-59 ml/min Code(s): N18.3 - CHRONIC KIDNEY DISEASE, STAGE 3 (MODERATE) Status: Acute (9) Nausea & vomiting Code(s): R11.2 - NAUSEA WITH VOMITING, UNSPECIFIED Status: Acute (10) Volume depletion Code(s): E86.9 - VOLUME DEPLETION, UNSPECIFIED Status: Acute - Plan Continue IVF. Substitute 1/2 NS + bicarb with LR Continue antibiotics. Await microbe ID and susceptibility. So far no growth [place] oral intake. Await biopsy of bladder mass Definitive stone treatment as per Urology. Follow renal function with IVF therapy
[2019-05-09] MEDS: Lactated Ringer's 1,000 ML IV SCH ×2 (15:21→19:56)
[2019-05-10 07:17] LABS: Albumin 3.2 g/dL (3.4-4.8); Anion Gap 15 mmol/L (10-20); BUN (Urea Nitrogen) 16 mg/dL (9.8-20.1); BUN/Creatinine Ratio 9.36; Calc. Creatinine Clearance 23 mL/min (70-130); Calcium 7.8 mg/dL (7.8-10.44); Carbon Dioxide 22 mmol/L (23-31); Chloride 109 mmol/L (98-107); Estimated GFR-MDRD 29; Glucose 95 mg/dL (83-110); Phosphorus 3.3 mg/dL (2.3-4.7); Potassium 3.9 mmol/L (3.5-5.1); Sodium 142 mmol/L (136-145)
[2019-05-10] MEDS: Docusate 100 MG CAP PO SCH (09:00)
[2019-05-10] MEDS: cefTRIAXone\\ROCEPHIN 1 GM in Sodium Chloride 0.9% 100 ML IVPB SCH (09:00)
[2019-05-10] MEDS: Trospium 20 MG TAB PO SCH (09:00)
[2019-05-10] MEDS: Famotidine/PF 20 mg/2ml Vial SLOW IVP SCH (09:01)
[2019-05-10] MEDS: Lactated Ringer's 1,000 ML IV SCH (09:02)
[2019-05-10 11:38] VITALS: BP 106/67; TEMP 98.1
--- NOTE | 2019-05-10 13:26 | PRG ---
DATE OF SERVICE: 05/10/2019 This is an 84-year-old white female, I am seeing today in room 4411. She was admitted over the weekend by the Hospitalist Team, and Dr. Frias placed an emergent left stent. Her urine culture was negative. Her white count was not elevated. She had a low-grade temperature of 99, and she has been on Rocephin. She had a stone that had been up in her left kidney that we are going to treat with ESWL, and then it moved down. It was actually in the distal ureter. The stent went up easily, and she has been comfortable since that time. I have reviewed her CAT scan. I have reviewed Dr. Frias' notes from the retrograde pyelogram. 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 At this point, I have recommended we take her Aragon catheter out and let her urinate and let her go home. We are not going to treat her with ESWL for this distal stone while actually if she does not pass it in the next few days, we will treat it with ureteroscopy, holmium laser lithotripsy, and stone retrieval next week. This was all discussed with her and with her daughter. We will send her out on some Macrodantin 100 mg twice a day to be taken while the stent is in place. All questions were answered, and I think she can go home today. Job ID: [id number]
[2019-05-10] MEDS: FLU VACC TS2019-20(65YR UP)/PF 180 MCG/0.5 ML SYRINGE IM ONE (14:29)
--- NOTE | 2019-05-10 15:21 | DIS ---
DATE OF ADMISSION: 05/06/2019 DATE OF DISCHARGE: 05/10/2019 PRIMARY CARE PHYSICIAN: Dr. Cornelio Burroughs. DISCHARGE DIAGNOSES: 1. Nephrolithiasis with obstruction. 2. Left hydronephrosis. 3. Acute kidney injury. 4. Chronic kidney disease, stage 3. 5. Metabolic acidosis. 6. Left flank pain. 7. Volume depletion. 8. Physical deconditioning. 9. Low-grade papillary urothelial carcinoma. 10. Rectal cancer, on treatment. 11. Status post colostomy. 12. Nausea and vomiting. 13. Hypertension. CONSULTS: Urology. PROCEDURES PERFORMED: Cystoscopy, left retrograde pyelogram. The pyelogram. Double-J stent exchange as well as a decisional biopsy of incidental papillary lesion with four correction of biopsy site. HOSPITAL COURSE: An 84-year-old female with rectal cancer status post surgery and colostomy, admitted with left flank pain associated with nausea, vomiting, and generalized ill-feeling and weakness. Evaluation with CT scan showed left obstructing stone with hydronephrosis. Urology consult was obtained, and the patient subsequently had cystoscopy with stent placement. She was also found to have bladder tumor, which was removed and sent for biopsy. The patient had Aragon catheter placed. She also was found to have oibfo-if-wtyqbnw renal failure, which was thought to be multifactorial from volume depletion, UTI with possible pyelonephritis, as well as obstructive uropathy. With relief of obstruction and treatment with IV fluid, renal function improved with creatinine trending downward from admission level of 2.8 to discharge level of 1.7. The patient also received physical therapy with improvement in general condition. Urine culture was no growth. The patient initially was treated with Rocephin and was transitioned to oral Omnicef at discharge. PHYSICAL EXAMINATION: VITAL SIGNS: Temperature 98.1, pulse 97, respiratory rate 16, SpO2 of 97 on room air, blood pressure is 106/67. GENERAL: Elderly female, in no distress. Afebrile. Anicteric. Acyanotic. HEENT: Normocephalic and atraumatic. Oral mucosa is moist. CARDIOVASCULAR: Regular rhythm and rate with normal heart sounds 1 and 2. RESPIRATORY: Good air entry bilaterally with no crackle or rhonchi or use of accessory muscles. GI: Full, soft, nontender, nondistended with normal bowel sounds. Left lower quadrant colostomy noted. EXTREMITIES: Grossly normal looking, atraumatic with no edema or erythema. NARCOTICS AGENT: Conscious, alert, oriented x3 with appropriate mental status. Cranial nerves 2 through 12 are grossly intact. DISCHARGE CONDITION: Improved. DISCHARGE DISPOSITION: Home. DISCHARGE MEDICATIONS: 1. Premarin cream 30 g application every 2 days. 2. Calcium carbonate with vitamin D one tablet p.o. b.i.d. 3. Diltiazem 60 mg p.o. b.i.d. 4. Jvckir-smhhwngi-urzmask two capsules p.o. t.i.d. with meals. 5. Multivitamin with iron one tablet p.o. daily. 6. MiraLAX 17 g p.o. daily. 7. Crestor 10 mg p.o. daily at bedtime. 8. Acetaminophen 650 mg q.8 p.r.n. for pain. 9. Omnicef (cefdinir) 300 mg p.o. daily for 14 days. 10. Trospium 20 mg p.o. daily at bedtime. FOLLOWUP: 1. The patient is to follow up with PCP in 10 days. 2. She is to follow up with negative turner apprentice in 2 to 3 weeks. 3. The patient also is to be seen at the outpatient surgery suite on May 16, for further definitive treatment of stone by Dr. Bennett. This discharge took more than 33 minutes. Job ID: [id number]
== END 2019-05-10 15:19 | disposition home or self-care (01) | DRG 660 ==
LOC: ERS 17:03 → T4-A 22:20
PROVIDERS: ADMIT Internal Medicine; ATTEND Internal Medicine
PROC: 0T778DZ Dilation of Left Ureter with Intraluminal Device, Via Natural or Artificial Opening Endoscopic (ICD-10-PCS; principal; 2019-05-07)
PROC: 0TBB8ZX Excision of Bladder, Via Natural or Artificial Opening Endoscopic, Diagnostic (ICD-10-PCS; 2019-05-07)
PROC: 0T5B8ZZ Destruction of Bladder, Via Natural or Artificial Opening Endoscopic (ICD-10-PCS; 2019-05-07)
PROC: BT1B1ZZ Fluoroscopy of Bladder and Urethra using Low Osmolar Contrast (ICD-10-PCS; 2019-05-07)
PROC: 0TP98DZ Removal of Intraluminal Device from Ureter, Via Natural or Artificial Opening Endoscopic (ICD-10-PCS; 2019-05-07)
DX: N13.6 Pyonephrosis (principal); C19 Malignant neoplasm of rectosigmoid junction; C79.11 Secondary malignant neoplasm of bladder; N30.40 Irradiation cystitis without hematuria; E87.2 Acidosis; C20 Malignant neoplasm of rectum; E78.5 Hyperlipidemia, unspecified; N17.9 Acute kidney failure, unspecified; E86.0 Dehydration; I12.9 Hypertensive chronic kidney disease with stage 1 through stage 4 chronic kidney disease, or unspecified chronic kidney disease; N18.3 Chronic kidney disease, stage 3 (moderate); E87.70 Fluid overload, unspecified; E78.00 Pure hypercholesterolemia, unspecified; N95.2 Postmenopausal atrophic vaginitis; Z88.2 Allergy status to sulfonamides
CPT/HCPCS: 36415; 71045; 74176; 74420; 80048; 80053; 80069; 81001; 83605; 83690; 85025; 87086; 88305; 90471; 90662; 93005; 96360; 96361; 96365; C1758; C1769; G0008; J0696; J2001; J2704; J3010; J3490; S0028

== ENCOUNTER 2019-05-16 09:11 | Day surgery (SDC) | payer MEDICARE, OTHER ==
[2019-05-13 12:03] VITALS: BMI 23.6
[2019-05-16] MEDS ORDERED: cefTRIAXone\\ROCEPHIN 1 GM VIAL ONE (09:41)
[2019-05-16] MEDS ORDERED: Sodium Chloride 0.9% 100 ML ONE (09:41)
[2019-05-16] MEDS ORDERED: Iothalamate Meglumine 60% 50 ML VIAL FS ONE (11:30)
--- NOTE | 2019-05-16 14:00 | OP ---
DATE OF PROCEDURE: 05/16/2019 PREOPERATIVE DIAGNOSIS: Left ureteral stones. POSTOPERATIVE DIAGNOSIS: Left ureteral stones. PROCEDURES PERFORMED: Left rigid ureteroscopy with laser lithotripsy and stone retrieval. ANESTHETIC: General. EBL: Minimal. SPECIMEN: Center stone fragments. FINDINGS: She has two stones in the distal ureter about a centimeter up from the ureterovesical junction, maybe 2 cm up from the ureterovesical junction. I could not basket them, so we lasered the larger and broke up the numerous fragments. One of the fragments, we basketed and then we were able to basket the smaller. Number of fragments were in her bladder, just 2 other stone fragments off for analysis. Proximal to this around, where the ureter crosses the iliac vessels, I could not get the rigid scope to go, even feeding a second guidewire through the scope could not get up past this point, so I did not push the issue here, but rather removed the ureteroscope leaving guidewire across it and shot contrast up this region. It still showed some dilatation to the ureter, but the ureter did appear to drain well. There was good efflux of urine. I am not sure if this is just the area that is narrowed or if there is still a stone present in this region, but I could not get up to it today, so the stent was replaced. A 6 x 24 string was left attached. We will do an outpatient CAT scan to see this area better. DESCRIPTION OF PROCEDURE: Obtained written and verbal consent, after receiving IV antibiotics, she was taken to the operating suite. She was placed in a supine position on the treatment table. PlexiPulses were placed on her lower extremities and turned on. She was given a general anesthetic and oral obturator intubation, placed in the dorsal lithotomy position, sterilely prepped and draped. Cystoscopy was performed with a 22-Afghan sheath. This was well lubricated and passed under direct vision through the female urethra into the bladder. The bladder was drained a number of times and examined. So, prior TURBT site that appears to be healing well. The distal end of the indwelling double-J stent was grasped with a pair of flexible grasping forceps and brought out through the urethral meatus. A guidewire was fed through this and the catheter was removed over the guidewire. We then brought in a small caliber graduated rigid ureteroscope passed under direct vision using a video camera and monitor through the female urethra into the bladder and up adjacent to the left ureter, I went about 2 cm up and came in contact with the stones. We tried a basket one that was freely mobile in the ureter, it was quite round, but could not engage it, so we brought in a small caliber holmium laser fiber broke it up in a number of pieces. One of the pieces we basketed removed. We then found a second stone that was not part of the first, it was a separate stone that was smaller and we were able to basket that and remove it. At this point, we reintroduced the ureteroscope and attempt to go further proximal up the ureter, but we could not. We could get up to about, where the pelvic vessels were, but could not go by this and fed a second guidewire through the rigid ureteroscope and up into the proximal ureter and renal pelvis and tried to follow over this, but still could get by this point. I do not know if this represents an area of stricture, an area of another stone, but I did not wish to try to push the scope through this region, so we elected to remove the scope in the extra guidewire and then backloaded. The guidewire that was existing through the 22-Afghan sheath and replaced that. We then passed a Councill tip catheter up across this region and injected contrast to fill up the collecting system on this side all the way down to the distal ureter and then replaced the Campo tip with a guidewire, removing the Campo tip and then we watched this system drain out fairly well, suggesting really there was not any obstruction across and I could not see any filling defect to suggest a ureteral stone. There was some narrowing of the ureter in this region. This has worked, kind of tapered down its diameter. At this point, over that remaining guidewire, we passed a 6 x 24 Polaris double-J stent pushing up into place with aid of a pusher so its proximal end coiled in the renal pelvis and its distal end coiled in the bladder when the wire was removed. The string was left attached on this. The bladder was drained. The instruments were removed. She was taken out of the dorsal lithotomy position, awakened, extubated, taken by stretcher to recovery room. Job ID: [id number]
--- NOTE | 2019-05-16 20:25 | CON ---
DATE OF CONSULTATION: 05/16/2019 HISTORY OF PRESENT ILLNESS: I am seeing Ms. Moss at our [facility] post acute care recovery unit as an Electrophysiology cloud consultant. Her problems are; 1. Recurrent atrial arrhythmias. a. History of rheumatic fever as a child. b. Paroxysmal atrial tachycardia with ablation left atrial tachycardia on January 15, 2009 and also in 2015. c. Recurrent slow ectopic atrial rhythm is noted alternating with sinus rhythm on telemetry post Urologic procedure today. 2. History of preserved LVEF. 3. History of colorectal cancer, status post resection, chemotherapy and radiation therapy x2. 4. Status post urethral stent placement today. ALLERGIES: SULFA AND ADHESIVE TAPE. MEDICATIONS: At home include; 1. Vitamin D3. 2. Diltiazem 60 mg twice a day. 3. Estrogen cream. 4. Lipase. 5. Multivitamin supplements. 6. Centrum Silver for Women. 7. Polyethylene glycol or MiraLAX. 8. Rosuvastatin. SUBJECTIVE: Ms. Moss seems to be doing well after ureteral stenting. She denies any palpitations, dizziness, loss of consciousness. There is no symptoms of chest pains or dyspnea. No fever, chills, or cough. No burning urination so far. Respiratory system unremarkable. OBJECTIVE DATA: VITAL SIGNS: Blood pressure is 169/89, heart rate 83, respirations 12, and the patient is afebrile. GENERAL: Alert and oriented woman, in no apparent distress. NECK: Supple. Jugular veins not distended. CHEST: Coarse without crackles. HEART: Sounds are regular rate and rhythm. No murmur or gallop. ABDOMEN: Benign. Bowel sounds positive. EXTREMITIES: Lower extremities without edema, clubbing, or cyanosis. Pulses are adequate. NEUROLOGIC: The patient is nonfocal. MUSCULOSKELETAL: No joint swelling or deformity. SKIN: Without rash. DATABASE: Telemetry strips reviewed revealing sinus rhythm alternating with occasional atrial tachycardia episodes, currently back in sinus rhythm. ASSESSMENT AND PLAN: Ms. Moss is a very pleasant 84-year-old woman with history of recurrent atrial arrhythmias, who is on chronic aspirin prophylaxis, which was on hold hence the upcoming ureteral stent and she did good on this procedure. During the procedure and after procedure, atrial tachyarrhythmia seems to have recurred , which she is not symptomatic off significantly. We have discussed the significance of these findings. At this point, I do not think there is any significant new finding is present. I do not see any evidence of atrial fibrillation, only more atrial tachycardia. At this point, it is reasonable to continue diltiazem if blood pressure allows for heart rate and blood pressure control. Hence his current rhythm - atrial tachycardia not atrial fibrillation - likely to be less thrombogenic. Aspirin can be held, especially in view of her post procedure bleeding risk. but could resume once Dr. Bennett feels that is appropriate. I discussed this with the patient and her daughter. They understand and willing to proceed. We will schedule her for routine followup in 6 to 8 weeks. Job ID: [id number] [facility]
--- NOTE | 2019-05-17 16:24 | EKG ---
Test Reason : Blood Pressure : / mmHG Vent. Rate : 063 BPM Atrial Rate : 063 BPM P-R Int : 162 ms QRS Dur : 074 ms QT Int : 410 ms P-R-T Axes : 073 -08 048 degrees QTc Int : 419 ms Sinus rhythm with marked sinus arrhythmia Premature atrial complexes Low voltage QRS Borderline ECG Confirmed by MARTHA RICHTER ([id number]) on 05/17/2019 4:23:43 PM Referred By: Confirmed By:MARTHA RICHTER
== END 2019-05-16 17:05 | disposition home or self-care (01) ==
LOC: SDC 09:11
PROVIDERS: ATTEND Urology
PROC: 0TF78ZZ Fragmentation in Left Ureter, Via Natural or Artificial Opening Endoscopic (ICD-10-PCS; principal; 2019-05-16)
PROC: 0T778DZ Dilation of Left Ureter with Intraluminal Device, Via Natural or Artificial Opening Endoscopic (ICD-10-PCS; 2019-05-16)
DX: N20.1 Calculus of ureter (principal); Z88.2 Allergy status to sulfonamides
CPT/HCPCS: 76000; 82365; 88300; 93005; 93010; C1758; J0696; J3490

== ENCOUNTER 2019-07-27 07:23 | Day surgery (SDC) | payer MEDICARE, OTHER ==
[2019-07-26 13:23] VITALS: BMI 22.3
[2019-07-27 09:02] LABS: Hemoglobin 10.6 g/dL (12.0-16.0); Mean Corpuscular HGB CONC 33.8 g/dL (32.0-36.0); Mean Corpuscular Hemoglobin 32.9 pg (27.0-31.0); Mean Corpuscular Volume 97.3 fL (78.0-98.0); Mean Platelet Volume 7.3 fL (7.4-10.4); Platelet Count 185 thou/uL (130-400); RBC Distribution Width 13.5 % (11.5-14.5); Red Blood Cell (RBC) Count 3.22 mill/uL (4.20-5.40); White Blood Cell (WBC) Count 5.3 thou/uL (4.8-10.8)
[2019-07-27 09:12] LABS: Anion Gap 12 mmol/L (10-20); BUN (Urea Nitrogen) 24 mg/dL (9.8-20.1); Calc. Creatinine Clearance 22 mL/min (70-130); Calcium 8.6 mg/dL (7.8-10.44); Carbon Dioxide 14 mmol/L (23-31); Chloride 119 mmol/L (98-107); Estimated GFR-MDRD 29; Glucose 96 mg/dL (83-110); Potassium 3.3 mmol/L (3.5-5.1); Sodium 142 mmol/L (136-145)
[2019-07-27] MEDS ORDERED: Sodium Chloride 0.9% 100 ML ONE (09:24)
[2019-07-27] MEDS ORDERED: CEFAZOLIN 1 GM VIAL ONE (09:24)
[2019-07-27] MEDS ORDERED: Ondansetron PF 4 MG/2 ML Vial ONE (10:16)
[2019-07-27] MEDS ORDERED: ePHEDrine/0.9% NaCl/PF SYRINGE 50 mg/10 ml ONE (10:16)
[2019-07-27] MEDS ORDERED: PROPOFOL 200 MG/20 ML VIAL ONE (10:16)
[2019-07-27] MEDS ORDERED: Lidocaine 1% PF 5 ML VIAL ONE (10:16)
--- NOTE | 2019-07-27 10:39 | RAD ---
RETROGRADE IVP: COMPARISON: 05/06/2019 EXPOSURE: 1.28 minutes 30.9 mGy FINDINGS: Fifteen fluoroscopic images demonstrate retrograde opacification of a distended left ureter and intra renal collecting system. There is evidence of a left ureteral stent. IMPRESSION: Intraoperative fluoroscopy as above. Transcribed Date/Time: 07/27/2019 10:52 AM
[2019-07-27] MEDS ORDERED: Iothalamate Meglumine 60% 50 ML VIAL FS ONE (12:39)
--- NOTE | 2019-07-27 14:15 | OP ---
DATE OF PROCEDURE: 07/27/2019 PREOPERATIVE DIAGNOSES: 1. Left hydronephrosis. 2. Renal insufficiency. POSTOPERATIVE DIAGNOSES: 1. Left hydronephrosis. 2. Renal insufficiency. PROCEDURES PERFORMED: 1. Cystoscopy. 2. Left retrograde. 3. Left stent. ANESTHETIC: General. ESTIMATED BLOOD LOSS: Minimal. FINDINGS: She had a left-sided hydronephrosis with some ureteral tortuosity, mainly from the pelvic inlet and proximal. She did have, however, what appeared to be something obstructing the very distal ureter, which was different than what was seen a few weeks ago when there was something obstructing the ureter as it crossed the pelvic inlet. This area still narrows down and this may be a chronic finding there, but the difficulty was in just passing something across intramural ureter this morning. She had a history of noninvasive bladder tumor. She has no evidence of recurrence. She did have some cloudy urine draining after a guidewire was passed up the left ureter, was draining and effluxing around the wire. We did send a urine culture off. DESCRIPTION OF PROCEDURE: After obtaining written and verbal consent from the patient, documenting lab work, which actually showed improved creatinine to 1.6 and receiving 1 g of Ancef, she was taken to the operating suite. She was placed in a supine position on the treatment table. PlexiPulses were placed on her lower extremities and turned on. She was given a general anesthetic and oral obturator intubation. She was carefully placed in the dorsal lithotomy position and sterilely prepped and draped. Fluoroscopy was used for imaging. Cystoscopy was performed with a 22-Bhutanese sheath, which was passed through the female urethra into the bladder. The bladder had some debris in it and this was washed out. The left ureteral orifice was identified. We initially attempted to place a 5-Bhutanese Pollack catheter into it and would go in about 0.5 cm to a centimeter, we injected, we could not get contrast to go proximal to this point. I could not get a guidewire by this, but we were able to manipulate an angle-tipped guidewire by it. It felt almost like it was running into a little stone, but I could not visualize one on the fluoroscopy unit and she had not had one in her ureter on her prior CAT scan. Once the angled Glidewire got up into the region of the renal pelvis, which she drained out some cloudy urine from around the guidewire. I was able to pass then the 5-Bhutanese Pollack catheter up into the renal pelvis and injected contrast to fill out this collecting system, replacing then the green guidewire through the Pollack catheter, removing the Pollack catheter, then placing a stent. The stent that we placed was a 4.6 x 22 cm. The proximal end coiled in the renal pelvis and its distal end coiled in the bladder and was removed and was effluxing nicely. At this point, the bladder was drained. The instruments were removed. She was taken out of the dorsal lithotomy position, awakened, and extubated, and taken by stretcher to the recovery room. We did send all these images off to Radiology for their review. She has hydronephrosis on the left side. She has a dilated ureter down to about the pelvic inlet. The ureter distal to that does not look dilated, however, it was in the very distal ureter that was difficult to manipulate by today. In the proximal ureter, we had difficulty at the time of her ureteroscopy. It was relatively easy to pass with the stent. Job ID: [id number]
== END 2019-07-27 13:30 | disposition home or self-care (01) ==
LOC: SDC 07:23
PROVIDERS: ATTEND Urology
PROC: 0T778DZ Dilation of Left Ureter with Intraluminal Device, Via Natural or Artificial Opening Endoscopic (ICD-10-PCS; principal; 2019-07-27)
DX: N13.30 Unspecified hydronephrosis (principal); N13.8 Other obstructive and reflux uropathy; N28.9 Disorder of kidney and ureter, unspecified; Z85.038 Personal history of other malignant neoplasm of large intestine; Z79.82 Long term (current) use of aspirin; Z79.899 Other long term (current) drug therapy; Z88.2 Allergy status to sulfonamides; Z91.048 Other nonmedicinal substance allergy status
CPT/HCPCS: 36415; 74420; 80048; 85027; 87077; 87086; C1758; C1769; J0690; J2001; J2405; J2704; J3490

== ENCOUNTER 2019-08-15 09:24 | Day surgery (SDC) | payer MEDICARE, OTHER ==
[2019-08-12 10:18] VITALS: BMI 23.6
[2019-08-15] MEDS ORDERED: PHENYLEPHRINE-NS 100 MCG/ML 10 ML SYRINGE ONE (10:23)
[2019-08-15] MEDS ORDERED: ePHEDrine/0.9% NaCl/PF SYRINGE 50 mg/10 ml ONE (10:23)
[2019-08-15] MEDS ORDERED: Lidocaine 1% PF 5 ML VIAL ONE (10:23)
[2019-08-15] MEDS ORDERED: PROPOFOL 200 MG/20 ML VIAL ONE (10:23)
[2019-08-15 10:28] LABS: #Eosinphils 0.1 thou/uL (0.0-0.7); #Monocytes 0.4 thou/uL (0.11-0.59); #Neutrophils 3.2 thou/uL (1.40-6.50); %Basophils 0.9 % (0.0-1.0); %Eosinophils 2.3 % (0.0-10.0); %Lymphocytes 21.5 % (21.0-51.0); %Neutrophils 66.4 % (42.0-75.0); Hemoglobin 10.8 g/dL (12.0-16.0); Mean Corpuscular HGB CONC 33.5 g/dL (32.0-36.0); Mean Corpuscular Hemoglobin 33.1 pg (27.0-31.0); Mean Corpuscular Volume 98.7 fL (78.0-98.0); Platelet Count 212 thou/uL (130-400); RBC Distribution Width 12.8 % (11.5-14.5); Red Blood Cell (RBC) Count 3.25 mill/uL (4.20-5.40); White Blood Cell (WBC) Count 4.8 thou/uL (4.8-10.8)
[2019-08-15] MEDS ORDERED: Sodium Chloride 0.9% 100 ML ONE (10:33)
[2019-08-15] MEDS ORDERED: cefTRIAXone\\ROCEPHIN 1 GM VIAL ONE (10:33)
[2019-08-15 10:49] LABS: Anion Gap 16 mmol/L (10-20); BUN (Urea Nitrogen) 37 mg/dL (9.8-20.1); Calc. Creatinine Clearance 18 mL/min (70-130); Calcium 8.9 mg/dL (7.8-10.44); Carbon Dioxide 12 mmol/L (23-31); Chloride 118 mmol/L (98-107); Estimated GFR-MDRD 22; Glucose 97 mg/dL (83-110); Potassium 4.4 mmol/L (3.5-5.1); Sodium 142 mmol/L (136-145)
[2019-08-15] MEDS ORDERED: Iothalamate Meglumine 60% 50 ML VIAL FS ONE (11:29)
[2019-08-15] MEDS ORDERED: Fentanyl 100 MCG/2 ML VIAL ONE (11:36)
[2019-08-15] MEDS ORDERED: Ondansetron PF 4 MG/2 ML Vial ONE (13:16)
--- NOTE | 2019-08-15 14:24 | RAD ---
RETROGRADE PYELOGRAM: Date: 08/15/2019 A total of 28 fluoroscopic images are presented from the OR. INDICATION: Intraoperative imaging during retrograde pyelogram procedure and ureteral stent placement. FINDINGS/IMPRESSION: A series of images show catheterization of the left ureter with opacification of the left collecting structures. Left double pigtail ureteral stent is noted in place on the final image. POS: EMANUEL
--- NOTE | 2019-08-15 18:46 | OP ---
DATE OF PROCEDURE: 08/15/2019 PREOPERATIVE DIAGNOSES: Left hydronephrosis, left ureteral stent. POSTOPERATIVE DIAGNOSES: Left hydronephrosis, left ureteral stent, left pyonephrosis. PROCEDURES PERFORMED: Cystoscopy, DC stent, left retrograde, left distal ureteroscopy, and left stent placement. ANESTHESIA: General. ESTIMATED BLOOD LOSS: Minimal. SPECIMEN: Passing urine from left renal pelvis, sent for culture and sensitivity. FINDINGS: She had an occluded 4.8 double-J stent, could not get a wire fit through it. She had about 35 mL of very purulent cloudy appearing urine that was obtained from the dilated left upper collecting system. This was sent for culture. After we had rinsed this out, we went in with a rigid ureteroscope about probably 3 to 4 cm up the left ureter and then ran into just a narrowed segment of ureter that we could not pass the small caliber graduated rigid ureteroscope, could not see obvious tumor, could not see a stone, just a tight ureter at this point. This was done under very low pressure. It was done in probably about 3 minutes of time. At this point, decision was made just to replace the stent with a slightly larger one to see if this area will dilate. See what this urine culture returns. Concern is possibly for vancomycin-resistant Enterococcus as she had very small counts of this from urine 2 to 3 weeks ago. Repeat culture was clear. DESCRIPTION OF PROCEDURE: Obtained written and verbal consent from the patient after receiving IV antibiotics. She was taken to the operating suite. She was placed in supine position on the treatment table. PlexiPulses placed on lower extremities and turned on. She was given a general anesthetic and oral obturator intubation, placed in dorsal lithotomy position, sterilely prepped and draped. Cystoscopy was performed with a 22-Gabonese sheath. This was well lubricated, passed into the female urethra into the bladder with aid of a 30-degree lens, video camera, and monitor. The bladder was filled and emptied a number of times. There was some debris on the floor of the bladder. Once this was all cleared, the distal end of the stent was grasped and brought out through the urethral meatus. A guidewire was fed up across it, went up until it got near the proximal end of the stent. It would not go by this, so we had to remove it intact with a guidewire as it had occluded at its proximal end. We then went ahead and brought in a 5-Gabonese Pollack catheter, flushed with contrast and placed into the left ureteral orifice, injecting contrast in a retrograde manner. There were some areas of narrowing of the ureter. One area in the mid ureter just above the pelvic brim and then ureter was dilated above that. It appeared to be a little bit of another narrowing just down a little bit lower closer to the bladder. There were some filling defects seen and a smooth and oblong filling defects in the proximal ureter. We were able to feed a guidewire up to the proximal ureter and then we fed the open-ended catheter up that high and we had to use an actually an angled Glidewire to get up into the renal pelvis and once this was done, we drained out about 35 mL of very cloudy purulent looking urine. We then flushed this with about 30 mL of some water in very gently and slowly draining it, putting 5 to 10 mL in and draining it until this was completely clear. We then left a guidewire in place. Then, we looked up the distal ureter with a rigid small caliber ureteroscope, went up adjacent to the wire, and would go up about probably 3 cm and then we would just run into a very narrowed segment of ureter. I tried placing a guidewire across this to see if we could get through this and we could not. For this reason, the scope was removed and the guidewire was backloaded through the cystoscope and we passed a 6-Gabonese x 24 cm double-J stent up over the guidewire pushing up into place with aid of a pusher, so its proximal end coiled in the renal pelvis and its distal end coiled in the bladder when the wire was removed. We will see what this culture shows and then we will probably look at having to redo this procedure and see if we get by this point of obstruction in the distal ureter to see what it was causing this obstruction. Job ID: [id number]
--- NOTE | 2019-08-15 23:32 | EKG ---
Test Reason : PREOP Blood Pressure : / mmHG Vent. Rate : 073 BPM Atrial Rate : 073 BPM P-R Int : 176 ms QRS Dur : 074 ms QT Int : 396 ms P-R-T Axes : 073 002 064 degrees QTc Int : 436 ms Sinus rhythm with Premature atrial complexes with Abberant conduction Low voltage QRS Borderline ECG Confirmed by Meaghan FIGUEROA ([id number]) on 08/15/2019 11:31:57 PM Referred By: SRAVAN Confirmed By:Meaghan FIGUEROA
== END 2019-08-15 14:30 | disposition home or self-care (01) ==
LOC: SDC 09:24
PROVIDERS: ATTEND Urology
PROC: 0T778DZ Dilation of Left Ureter with Intraluminal Device, Via Natural or Artificial Opening Endoscopic (ICD-10-PCS; principal; 2019-08-15)
PROC: 0TP98DZ Removal of Intraluminal Device from Ureter, Via Natural or Artificial Opening Endoscopic (ICD-10-PCS; 2019-08-15)
DX: N13.6 Pyonephrosis (principal); I48.91 Unspecified atrial fibrillation; Z85.038 Personal history of other malignant neoplasm of large intestine; Z79.2 Long term (current) use of antibiotics; Z79.82 Long term (current) use of aspirin; Z79.899 Other long term (current) drug therapy; Z88.2 Allergy status to sulfonamides; Z91.048 Other nonmedicinal substance allergy status
CPT/HCPCS: 52332; 74420; 80048; 85025; 87086; 93005; C1758; C1769; 36415; 87077; 93010; J0696; J2001; J2405; J2704; J3010; J3490

== ENCOUNTER 2019-09-10 11:59 | Inpatient (IN) | payer MEDICARE, OTHER ==
[2019-09-10] MEDS ORDERED: Ondansetron PF 4 MG/2 ML Vial ONE (12:50)
[2019-09-10] MEDS ORDERED: Promethazine HCl 25 MG/ML VIAL ONE (13:08)
[2019-09-10 13:29] LABS: #Lymphocytes 0.8 thou/uL (1.20-3.40); #Monocytes 0.1 thou/uL (0.11-0.59); #Neutrophils 1.8 thou/uL (1.40-6.50); %Basophils 0.9 % (0.0-1.0); %Lymphocytes 28.8 % (21.0-51.0); %Monocytes 4.8 % (0.0-10.0); %Neutrophils 64.5 % (42.0-75.0); Hemoglobin 9.6 g/dL (12.0-16.0); Mean Corpuscular HGB CONC 34.5 g/dL (32.0-36.0); Mean Corpuscular Hemoglobin 32.9 pg (27.0-31.0); Mean Corpuscular Volume 95.4 fL (78.0-98.0); Platelet Count 40 thou/uL (130-400); RBC Distribution Width 11.7 % (11.5-14.5); White Blood Cell (WBC) Count 2.7 thou/uL (4.8-10.8)
[2019-09-10 13:37] LABS: MDiff Complete? YES
[2019-09-10 13:38] LABS: Ovalocytes SLIGHT = 2-5 cells (100X) (0-1/hpf); Platelet Morphology Comment Appears Decreased; Polychromasia SLIGHT = 2-3 cells (100X) (0-2/hpf)
[2019-09-10 13:50] LABS: ALT (SGPT) 26 U/L (8-55); AST (SGOT) 25 U/L (5-34); Albumin 3.8 g/dL (3.4-4.8); Alkaline Phosphatase 63 U/L (40-110); Anion Gap 16 mmol/L (10-20); BUN (Urea Nitrogen) 40 mg/dL (9.8-20.1); Bilirubin, Total 0.3 mg/dL (0.2-1.2); Calc. Creatinine Clearance 0 mL/min (70-130); Calcium 8.9 mg/dL (7.8-10.44); Carbon Dioxide 18 mmol/L (23-31); Chloride 109 mmol/L (98-107); Estimated GFR-MDRD 21; Globulin 2.4 g/dL (2.4-3.5); Glucose 102 mg/dL (83-110); Potassium 4.8 mmol/L (3.5-5.1); Protein, Total 6.2 g/dL (6.0-8.3); Sodium 138 mmol/L (136-145)
[2019-09-10] MEDS ORDERED: Ondansetron PF 4 MG/2 ML Vial IVP PRN ×2 (16:44→21:06)
[2019-09-10 17:18] LABS: Bilirubin Negative (Negative); Blood, Urine 3+ (Negative); Clarity Clear (Clear); Glucose, Urine (Dipstick) Normal (Negative); Leukocyte Negative Leu/uL (Negative); Nitrite Negative (Negative); Protein, Urine (Dipstick) 30 mg/dL (Neg-Trace); RBC/HPF 21-50 HPF (0-3); Squamous Epithelial 0-3 HPF (0-3); Urobilinogen Normal mg/dL (Less than 2); WBC/HPF 0-3 HPF (0-3)
[2019-09-10 17:28] LABS: Bacteria/HPF None Seen HPF (None Seen)
[2019-09-10 20:06] LABS: Troponin I 0.015 ng/mL (< 0.028)
[2019-09-10] MEDS ORDERED: Acetaminophen 325 MG TAB PO PRN ×2 (20:15→21:06)
[2019-09-10] MEDS ORDERED: Senokot S 8.6-50 MG TAB PO PRN ×2 (20:15→21:06)
[2019-09-10 20:37] LABS: #Lymphocytes 1.2 thou/uL (1.20-3.40); #Monocytes 0.2 thou/uL (0.11-0.59); #Neutrophils 1.3 thou/uL (1.40-6.50); %Basophils 0.3 % (0.0-1.0); %Eosinophils 0.7 % (0.0-10.0); %Lymphocytes 44.6 % (21.0-51.0); %Monocytes 7.7 % (0.0-10.0); %Neutrophils 46.7 % (42.0-75.0); Hemoglobin 8.8 g/dL (12.0-16.0); Mean Corpuscular Hemoglobin 32.6 pg (27.0-31.0); Mean Corpuscular Volume 95.9 fL (78.0-98.0); Mean Platelet Volume 10.1 fL (7.4-10.4); Platelet Count 32 thou/uL (130-400); RBC Distribution Width 11.7 % (11.5-14.5); Red Blood Cell (RBC) Count 2.69 mill/uL (4.20-5.40); White Blood Cell (WBC) Count 2.7 thou/uL (4.8-10.8)
[2019-09-10] MEDS: Dextrose 5 % And 0.9 % NaCl 1,000 ML IV SCH (20:39)
[2019-09-10] MEDS ORDERED: hydrALAZINE 20 MG/ML VIAL SLOW IVP PRN (21:06)
[2019-09-10] MEDS ORDERED: Heparin 5,000 UNITS/ML VIAL SC SCH (21:15)
[2019-09-10 21:40] LABS: Anion Gap 15 mmol/L (10-20); BUN (Urea Nitrogen) 39 mg/dL (9.8-20.1); Calc. Creatinine Clearance 19 mL/min (70-130); Calcium 8.1 mg/dL (7.8-10.44); Carbon Dioxide 17 mmol/L (23-31); Chloride 114 mmol/L (98-107); Estimated GFR-MDRD 24; Glucose 111 mg/dL (83-110); Potassium 4.8 mmol/L (3.5-5.1); Sodium 141 mmol/L (136-145)
[2019-09-10] MEDS: Rosuvastatin 10 MG TAB PO SCH (22:11)
[2019-09-10] MEDS: guaiFENesin ER 600 MG TAB PO SCH (22:12)
--- NOTE | 2019-09-10 22:19 | PDOC.EVN ---
Event Note - Event Note Event Note: RN called - Platelets 32 Will hold Heparin
[2019-09-10 22:56] LABS: Troponin I 0.026 ng/mL (< 0.028)
--- NOTE | 2019-09-11 00:58 | HP ---
PRIMARY CARE PHYSICIAN: Cornelio Burroughs MD. UROLOGIST: Brandon Bennett MD CHIEF COMPLAINT: Nausea and vomiting for 3 to 4 days. HISTORY OF PRESENT ILLNESS: Ms. Moss is a pleasant 84-year-old female, who has a history of colon cancer. She also has a history of frequent urinary tract infections in the past and also several urinary stents. She also has a history of nephrolithiasis as well. Since having the stent, she has been on antibiotics including orals Zyvox, Macrobid, and Levaquin. She has been on these antibiotics for several weeks. She says that in the past 3 to 4 days, however, she has been having symptoms of nausea as well as vomiting and says she cannot keep anything down. She attributed to having some sinus drainage. She also noted quite a bit of diarrhea as well and some abdominal discomfort. She denies any fevers or chills. No rashes. She notes some abdominal discomfort, but no misty pain. No blood in the stools. She came to the ER for evaluation. There, she was found to be pancytopenic as well as noted to have an elevation in her creatinine above baseline, and for this reason, she is being placed in observation for further recommendations. Currently, she feels clinically stable. No significant complaints at this time. REVIEW OF SYSTEMS: All systems were reviewed and are negative except for that mentioned in the history of present illness. PAST MEDICAL HISTORY: Significant for colon cancer as well as transitional cell carcinoma, hyperlipidemia, arrhythmia. PAST SURGICAL HISTORY: She has had a colostomy as well as an ablation and right ankle surgery, prior cystoscopy with ureteroscopy and laser lithotripsy and double-J stent placement. FAMILY HISTORY: Significant for heart disease in her father. SOCIAL HISTORY: She lives with family. She is a nonsmoker and nondrinker. Code status is full code. ALLERGIES: TO SULFA. CURRENT MEDICATIONS: Include: 1. Crestor 10 mg daily. 2. Macrobid 100 mg twice a day. 3. Zyvox or linezolid 600 mg twice daily. 4. Conjugated estrogens. 5. Cardizem CD 120 mg at bedtime. 6. Vitamin D3 of 2000 units daily. 7. Aspirin 325 mg daily. 8. Potassium chloride 10 mEq daily. PHYSICAL EXAMINATION: GENERAL: She is alert and oriented. She appears to be in no acute distress. She is well developed and well nourished. VITAL SIGNS: Blood pressure was 135/65, heart rate 95, respiratory rate of 16, temperature is 98.5. HEENT: Pupils are equal, round, and reactive. Extraocular muscles are intact. Her sclerae anicteric. Throat, no erythema, no exudates. NECK: No adenopathy. No bruits. LUNGS: Clear to auscultation. No wheezing. No rales. No rhonchi. CARDIOVASCULAR: She has normal S1 and S2. There is no S3 or S4. No murmurs, clicks or rubs. ABDOMEN: Soft, nontender, and nondistended. Positive for bowel sounds. No rebound or guarding, and the stoma is intact. There is no drainage or erythema. No induration. EXTREMITIES: She has some mild nonpitting edema of both lower extremities, but no significant or no joint effusions. NEUROLOGIC: Her cranial nerves are intact. SKIN AND INTEGUMENT: No skin changes. No rashes. LABORATORY RESULTS: Reviewed. White blood cell count 2.7, hemoglobin 9.6, hematocrit is 27.7, and platelet count was 40. Sodium 138, potassium 4.8, chloride is 109, CO2 is 18, BUN of 40, creatinine 2.19. Urinalysis; there is 3+ blood and 21-50 wbc's. ASSESSMENT: This is an 84-year-old female, who presents with nausea and vomiting, likely as a result of the antibiotics. She also is noted to have mild acute on chronic kidney injury and pancytopenia. I suspect the pancytopenia is likely related to the antibiotics as well, particularly Zyvox and possibly Macrobid. She will be placed in observation. We will continue the current medications for now since she appears to be relatively stable and consult ID in the a.m. for recommendations with regard to potentially changing the antibiotics. She will be placed on IV fluids for the mild acute on chronic kidney injury and we will try some Flonase with regard to the nasal drainage, as well as antihistamine. Reconcile and restart her other medications. Job ID: [id number]
--- NOTE | 2019-09-11 01:39 | HP ---
CHIEF COMPLAINT: Nausea, vomiting, and generalized weakness. HISTORY OF PRESENT ILLNESS: The patient is an 84-year-old female, with a past medical history of left hydronephrosis, status post recent stent placement; colorectal cancer, status post colostomy; and hyperlipidemia, who presents to the hospital with complaints of nausea, vomiting, and generalized weakness. The patient states that she has been having some significant sinus congestion, which has been an ongoing problem for about 8 months now. She is currently on Linezolid for her VRE infection in her urine. The patient denies any fevers or chills; however, states for the past 3 days, she has been unable to keep anything down and has been severely nauseated. She denies any diarrhea. However, she states that she has been having some really foul smelling, dark color stool through her colostomy. Denies any abdominal pain. The patient states that she recently saw her primary care doctor and was prescribed Levaquin on 09/09 for possible sinusitis or bronchitis. PAST MEDICAL HISTORY: Colorectal cancer, status post surgery; history of arrhythmia, status post ablation; hyperlipidemia; recurrent kidney stones; history of C diff. PAST SURGICAL HISTORY: She has had a colostomy. She has a heart ablation. She has a right knee surgery. She has prior cystoscopies and currently she has a ureteral stent placed in her right ureter. FAMILY HISTORY: No history of heart disease or strokes. SOCIAL HISTORY: She lives with her family. No alcohol use, drug use, or smoking history. She is a full code. ALLERGIES: SHE IS ALLERGIC TO SULFA. MEDICATIONS: She is on; 1. Aspirin 325 daily. 2. Diltiazem 60 mg twice a day. 3. MiraLAX 17 g daily. 4. Potassium chloride 20 mEq daily. 5. Crestor 10 mg daily. 6. She is also on Zyvox twice a day. I believe this was a 20-day supply. 7. She was taking Levaquin, which was started on 09/09. REVIEW OF SYSTEMS: All negative except for the ones mentioned above in the HPI. PHYSICAL EXAMINATION: VITAL SIGNS: Are the following; temperature of 98.5, pulse 95, respirations 16, oxygen saturation 98% on room air, blood pressure 135/66. GENERAL: She is awake, alert, and oriented x3. Does not appear in distress. HEENT: Normocephalic, atraumatic. Her head seems stuffy; however, no pain upon palpation on her sinuses. CV: S1, S2 present. No murmurs, rubs, or gallops. LUNGS: Clear to auscultation. No rhonchi or wheezes noted. ABDOMEN: Soft and nontender. Bowel sounds are present x2. She has a colostomy to her left lower quadrant. EXTREMITIES: No edema. Pedal pulses are present x2. NEUROVASCULAR: No focal deficits noted. SKIN: No cuts, lesions, or bruises noted. LABORATORY RESULTS: As of the following; WBCs of 2.7, hemoglobin of 9.6, hematocrit of 27.7, her platelet count is 40. Her chemistry; sodium of 138, potassium of 4.8, BUN of 40, creatinine of 4.19, a bicarb of 18. Troponin x2 were negative. Her BNP was 174. ASSESSMENT AND PLAN: The patient is an 84-year-old female, who presents to the hospital with complaints of nausea, and vomiting. 1. Nausea and vomiting. This could be secondary to medication side effect versus infectious etiology. The patient has no abdominal pain. We will start her on some gentle hydration. We will give her p.r.n. Zofran. She did receive Zofran and Phenergan, was able to eat a sandwich without any problems. 2. Pancytopenia. She has significant decrease in her white count, also her platelets. I will repeat this. This could be possibly secondary to Zyvox. I will hold off on the medication for now. She states that she did take 3 doses for the past 3 days; however, has thrown up after taking them. She has about 3 or 4 more days of antibiotic therapy. However, given this pancytopenia, I would first consult with Infectious Disease and then maybe consider switching her antibiotics or maybe even continuing and just watching her while she is here. She had a urine that was positive for Vancomycin-resistant Enterococci. She also had a recent stool studies that were checked including C diff on 08/27, which was negative. 3. 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 Again, I will hold off on her antibiotics for now until she is seen by Infectious Disease given the possible side effects of the medication. 4. Left ureter stent. She was supposed to get it removed by Dr. Bennett on Thursday. However, given her nausea and vomiting, she canceled the appointment. 5. Generalized weakness. The patient feels that she has become very weak since her nausea and vomiting and unable to keep anything down. We will continue to monitor. 6. Deep venous thrombosis prophylaxis. We will put the patient on some SCDs and we will continue to monitor her. Job ID: [id number]
[2019-09-11 04:56] LABS: Hemoglobin 8.2 g/dL (12.0-16.0); Mean Corpuscular HGB CONC 34.5 g/dL (32.0-36.0); Mean Corpuscular Hemoglobin 33.5 pg (27.0-31.0); Mean Corpuscular Volume 97.2 fL (78.0-98.0); Mean Platelet Volume 10.2 fL (7.4-10.4); Platelet Count 27 thou/uL (130-400); RBC Distribution Width 11.7 % (11.5-14.5); Red Blood Cell (RBC) Count 2.45 mill/uL (4.20-5.40); White Blood Cell (WBC) Count 3.3 thou/uL (4.8-10.8)
[2019-09-11 05:10] LABS: Anion Gap 11 mmol/L (10-20); BUN (Urea Nitrogen) 36 mg/dL (9.8-20.1); Calc. Creatinine Clearance 21 mL/min (70-130); Calcium 7.9 mg/dL (7.8-10.44); Carbon Dioxide 19 mmol/L (23-31); Chloride 116 mmol/L (98-107); Estimated GFR-MDRD 25; Glucose 95 mg/dL (83-110); Potassium 4.4 mmol/L (3.5-5.1); Sodium 142 mmol/L (136-145)
[2019-09-11 05:28] LABS: Elliptocytes SLIGHT = 2-5 cells (100X) (0-1/hpf); Eosinophils 2 % (0-10); Lymphocytes 56 % (21-51); MDiff Complete? YES; Metamyelocyte 1 % (0-0); Monocytes 6 % (0-10); Neutrophil 35 % (42-75); Platelet Morphology Comment Appears Decreased
[2019-09-11] MEDS: Pancrelipase DR 12000 1 CAP PO SCH ×3 (08:11→18:10)
[2019-09-11] MEDS: guaiFENesin ER 600 MG TAB PO SCH ×2 (08:11→22:41)
[2019-09-11] MEDS: Dextrose 5 % And 0.9 % NaCl 1,000 ML IV SCH ×3 (08:13→22:45)
[2019-09-11] MEDS ORDERED: Heparin 5,000 UNITS/ML VIAL SC SCH (09:00)
[2019-09-11] MEDS ORDERED: Fluticasone Propionate Nasal Spray 16 gm Bottle NASAL SCH ×2 (09:00)
--- NOTE | 2019-09-11 14:30 | PDOC.HOSPP ---
- Subjective Encounter Date: 09/11/19 Encounter Time: 14:28 Subjective: Ms. Moss was seen today in follow-up of nausea nad vomiting and pancytopenia. She says the nausea and vomiting has improved, but still is having diarrhea. - Objective Vital Signs & Weight: Vital Signs (12 hours) Temp Pulse Resp BP Pulse Ox 09/11/19 11:48 98.4 F 82 20 116/59 L 99 09/11/19 07:50 98.4 F 74 20 116/55 L 97 09/11/19 05:15 98.4 F 74 20 105/51 L 97 Weight Weight 124 lb 8 oz I&O: 09/10/19 09/11/19 09/12/19 06:59 06:59 06:59 Intake Total 780 Output Total 200 Balance 580 Result Diagrams: 09/11/19 04:36 09/11/19 04:36 Hospitalist ROS - Medication Medications: Active Medications Generic Name Dose Route Start Last Admin Trade Name Freq PRN Reason Stop Dose Admin Acetaminophen 650 mg 09/10/19 20:15 09/10/19 22:12 Tylenol PO 650 mg Q4H PRN Administration Headache/Fever/Mild Pain (1-3) Lipase/Protease/Amylase 4 cap 09/11/19 08:00 09/11/19 11:[address] [place] [address] PO 4 cap TID-WM JAM Administration Diltiazem HCl 120 mg 09/10/19 21:00 09/10/19 22:11 Cardizem Cd PO 120 mg HS JAM Administration Guaifenesin 600 mg 09/10/19 21:00 09/11/19 08:11 Mucinex PO 600 mg Q12HR JAM Administration Dextrose/Sodium Chloride 1,000 mls @ 75 mls/hr 09/10/19 16:45 09/11/19 08:13 D5 0.9% Ns IV Not Given .[id number] JAM Levofloxacin 750 mg 09/11/19 10:00 09/11/19 11:57 Levaquin PO 750 mg 1000 AJM Administration Rosuvastatin Calcium 10 mg 09/10/19 21:00 09/10/19 22:11 Crestor PO 10 mg QPM JAM Administration - Exam Eye: PERRL Heart: RRR, no murmur, no gallops, no rubs, normal peripheral pulses Respiratory: CTAB, no wheezes, no rales, no ronchi, normal chest expansion, no tachypnea, normal percussion Gastrointestinal: soft, non-tender, non-distended, normal bowel sounds, no palpable masses, no hepatomegaly Extremities: no cyanosis, no edema Hosp A/P (1) Nausea & vomiting Code(s): R11.2 - NAUSEA WITH VOMITING, UNSPECIFIED Status: Acute (2) Pancytopenia Code(s): D61.818 - OTHER PANCYTOPENIA Status: Acute (3) HTN (hypertension) Code(s): I10 - ESSENTIAL (PRIMARY) HYPERTENSION Status: Chronic (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
--- NOTE | 2019-09-11 17:02 | CON ---
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 The patient has developed complications, probably secondary to radiation therapy, which have involved, particularly the left side, which have required a placement of ureteral stents. The last one was revised by Dr. Bennett on August 15, 2019. The procedure consisted of replacement of the left ureteral stent. The patient had vancomycin resistant enterococcus, alpha hemolytic strep from the left renal pelvis sample. She also had a gram- negative wendy isolated, which was not identified or susceptibility tested, this was a clean- catch urine sample, less than 5000 CFUs per mL and possibly a contaminant. The patient had been prescribed antimicrobial therapy to manage this finding from the stent replacement procedure. She did have purulent urine retrieved during the procedure as noted by Dr. Bennett in his note. She had been on oral Zyvox, Macrobid, and Levaquin for several weeks and recently has developed nausea, vomiting, inability to keep fluids or solids food down. She also noticed a liquid nature of her stool in the colostomy bag. No headaches. Some cough, mostly related to posterior nasal drip. No back pain or flank pain. No dysuria. 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 Also history of recurrent kidney stones, which have required intervention, cardiac ablation in the past, right ankle surgery. ALLERGIES: SULFA DRUGS WITH RASH. SOCIAL HISTORY: . Lives in the area. Never smoker. She does have secondhand smoke exposure. No alcoholic beverage use. FAMILY HISTORY: Noncontributory. CURRENT MEDICATIONS: 1. P.R.N. medications. 2. Creon. 3. Caltrate. 4. Cardizem. 5. Premarin. 6. Flonase. 7. Mucinex. 8. Levofloxacin. 9. Crestor. PHYSICAL EXAMINATION: VITAL SIGNS: T-max 98.5, blood pressure 116/59, pulse 82, respirations 20, and O2 saturation 99. GENERAL: Does not appear in distress. SKIN: Without any abnormalities. Peripheral IV access. She is voiding on her own without difficulty. Colostomy bag in the left side of the abdomen. No lymphadenopathy. Ocular movements conjugate. Oral cavity normal except for some dryness and dark pigmentation of the dorsum of her tone. NECK: Supple. No jugular vein distention or carotid bruits. LUNGS: Symmetric clear breath sounds. S1 and S2. Regular rate. No S3 or S4. ABDOMEN: Soft with mild diffuse tenderness. Rebound negative. Bowel sounds are somewhat increased. No bladder distention. No joint inflammatory activity. Pulses are 1+ in dorsalis pedis. Plantar response are flexor. No edema. NEURO: Nonfocal including cognitive function. LABORATORY DATA: White cell count 2.7 and 3.3, hemoglobin 9.6, platelets are 40 and now 27, neutrophil percentage 35, and lymphocyte percentage 56. Sodium 142, creatinine 1.89, and GFR 25. Baseline creatinine from the end of 2018 was ranging from 1.7 to 2.04. Urinalysis with 0 to 3 wbc's. Urine culture, no growth 24 hours. C. difficile negative from August 27. ASSESSMENT: 1. Low abdominal peritoneal resection chemoradiation therapy for management of rectosigmoid cancer eight years ago in remission. 2. 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 3. Recurrent urinary tract infections. 4. Recent intervention with replacement of one of the stents. 5. Vomiting over the past few days, which has led to admission. 6. Pancytopenia. DISCUSSION: Differential diagnosis includes drug toxicity, particularly linezolid, which can be associated with the noted pancytopenias and gastrointestinal adverse reaction as the more likely scenario. She does not appear to have an infectious process that is systemically active at this point in time. I would advise discontinuation of all the antimicrobials for the moment and follow up her clinical course and follow up her CBC for resolution of the abnormalities. Once the linezolid has been discontinued. In terms of future maintenance of therapy, the option would be low-dose Macrobid or low-dose quinolone or just observation and treatment as needed. 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 Job ID: [id number] [facility]
[2019-09-11] MEDS: Calcium Carbonate 600 MG + Vit D TAB PO SCH (18:10)
[2019-09-11] MEDS: Rosuvastatin 10 MG TAB PO SCH (22:41)
[2019-09-11] MEDS: Fluticasone Propionate Nasal Spray 16 gm Bottle NASAL SCH (22:42)
[2019-09-12 05:10] LABS: Hemoglobin 8.2 g/dL (12.0-16.0); Mean Corpuscular HGB CONC 32.7 g/dL (32.0-36.0); Mean Platelet Volume 9.8 fL (7.4-10.4); Platelet Count 25 thou/uL (130-400); RBC Distribution Width 11.8 % (11.5-14.5); Red Blood Cell (RBC) Count 2.55 mill/uL (4.20-5.40); White Blood Cell (WBC) Count 3.9 thou/uL (4.8-10.8)
[2019-09-12 05:55] LABS: Eosinophils 4 % (0-10); Lymphocytes 47 % (21-51); MDiff Complete? YES; Monocytes 4 % (0-10); Neutrophil 45 % (42-75); Platelet Morphology Comment Appears Decreased
[2019-09-12] MEDS: Fluticasone Propionate Nasal Spray 16 gm Bottle NASAL SCH (08:17)
[2019-09-12] MEDS: Pancrelipase DR 12000 1 CAP PO SCH ×3 (08:18→16:40)
[2019-09-12] MEDS: Estrogens, Conjugated 30 GM TUBE VAG SCH (08:19)
[2019-09-12] MEDS: Calcium Carbonate 600 MG + Vit D TAB PO SCH ×2 (08:19→16:41)
[2019-09-12] MEDS: guaiFENesin ER 600 MG TAB PO SCH ×2 (08:19→21:38)
[2019-09-12 10:46] LABS: Platelet Count 26 thou/uL (130-400)
[2019-09-12 15:48] VITALS: BMI 23.5
--- NOTE | 2019-09-12 16:08 | CON ---
DATE OF CONSULTATION: This is an 84-year-old white female who I am well acquainted with. She has a history of having colorectal cancer and she has end colostomy. She has had radiation and chemo, this was a few years ago. She has done well from the standpoint, but she had a rough time of it, has some chronic problems related to it including urinary incontinence. She has an atrophic right kidney. She has had some recurrent stones in her left kidney, and I believe in May, she presented with an obstructing stone. Dr. Frias placed the stent. The stone was in the distal ureter. I did ureteroscopy and removed that. I could not get the ureteroscope to go past the pelvic brim and I replaced the stent with the plans on bringing her back to do ureteroscopy a week or so later and then unfortunately the stent came out on her at home. She had no pain after it came out, but she did have a bump in her creatinine up to around 2, and she had ultrasounds and noncontrast CT scans that did show some left-sided hydro, although she has had some left hydro in the past. It appeared per Radiology that it was worse than it had been. For that reason, she came back and had a stent placed. With the plan of doing ureteroscopy, we brought her back to do ureteroscopy. When we placed her initial stent, her urine grew out low colonies of vancomycin-resistant Enterococcus. I talked with Dr. Muniz. He recommended repeating the culture, not treating it unless the culture was positive because the counts were low. When we repeated the culture, it was negative. We brought her back to do ureteroscopy and removed the stent to pass the ureteroscope and her urine was cloudy when the stent came out as the stent had occluded and that grew out higher colony counts of vancomycin-resistant enterococcus. She was not sick from this, this was not toxic, and did not have an elevated white count. At this point, I checked with Infectious Disease who is covering for Dr. Muniz, and we put her on linezolid with a plan on being on that and then doing ureteroscopy. After that, she developed upper respiratory tract infections, so her case was canceled. Then, she developed sinusitis and she had initially Augmentin added. This caused a great deal of diarrhea. This was just last week. Dr. Bains had placed her on this. He then switched her to doxycycline, and then as of Thursday, she had not taken the doxycycline. At this point, we canceled her ureteroscopy, which was supposed to have been for today. She was admitted yesterday with nausea, vomiting, and increasing diarrhea. She had C difficile done again, which was negative. I did a C difficile study on her because of diarrhea probably a week to 10 days ago, which was also negative. Her creatinine is still upper and around the 2 range. Her vital signs currently; temperature is 99.2, it does not look like it has been any higher than that. Her pulse is stable. Her blood pressure is good. Her room air saturation is fine. She is not having any complaints related to the stent or to her left kidney. Dr. Muniz saw her yesterday and recommended stopping all antibiotics as she had a low white count and was somewhat anemic, and it is felt that the cytopenia may be related to the antibiotic use. So far, her repeat cultures are negative at 24 hours for the urine. On reviewing her current medications, she is currently not on any antibiotics. It does appear that she was possibly given Levaquin in the ER when she came in yesterday, in fact, this was likely done. I talked at this point she is not having a great deal of symptoms. She is having a little bit of swelling in her hands, but that is it, she is not having a lot of problems related to the stent. The plan will be to leave her off the antibiotics and see how she does. Hopefully, her nausea and vomiting will resolve and she has not thrown up since she was admitted last night. Hopefully, she will be able to eat and drink and maintain good hydration and hopefully her diarrhea will improve. She still does need ureteroscopy and we will look at trying to do this next week if her health improves to try to determine what it is, that is causing the left ureter not to drain well to see if she has a stone fragment or she has strictures or dealing with radiation issues. This was discussed with her today. She has a nephew who see urologist. I have given her my cell number, so he can get a hold of me. I do not think she should be very quickly discharged until we know that she is eating and drinking okay and that her diarrhea has improved as I think otherwise she will end up just going home and becoming dehydrated again. It does not appear that she emergently needs the stent removed or exchanged at this time. Job ID: [id number]
--- NOTE | 2019-09-12 17:28 | PDOC.HOSPP ---
- Subjective Encounter Date: 09/12/19 Encounter Time: 17:26 Subjective: Ms. Moss was seen today in follow-up of adverse reaction to Zyvox. She does not have any new complaints. The nausea and vomiting has resolved. - Objective Vital Signs & Weight: Vital Signs (12 hours) Temp Pulse Pulse Pulse Pulse Resp BP 09/12/19 16:00 98.4 F 80 16 09/12/19 11:36 98.5 F 83 18 09/12/19 10:40 80 89 97 116/56 L 09/12/19 07:28 99.2 F 78 16 BP BP BP Pulse Ox 09/12/19 16:00 143/65 H 97 09/12/19 11:36 138/58 L 97 09/12/19 10:40 122/60 114/58 L 09/12/19 07:28 129/60 97 Weight Admit Weight 124 lb Weight 124 lb 8 oz I&O: 09/11/19 09/12/19 09/13/19 06:59 06:59 06:59 Intake Total 812 678 8433 Output Total 475 666 3867 Balance 580 100 350 Result Diagrams: 09/12/19 09:48 09/11/19 04:36 Hospitalist ROS - Medication Medications: Active Medications Generic Name Dose Route Start Last Admin Trade Name Freq PRN Reason Stop Dose Admin Acetaminophen 650 mg 09/10/19 20:15 09/10/19 22:12 Tylenol PO 650 mg Q4H PRN Administration Headache/Fever/Mild Pain (1-3) Lipase/Protease/Amylase 4 cap 09/11/19 08:00 09/12/19 16:[address] [place] [id number] PO 4 cap TID-[facility] Administration Calcium/Vitamin D 1 tab 09/11/19 17:00 09/12/19 16:41 Caltrate 600 + Vit D PO 1 tab BID-WM JAM Administration Cholecalciferol 2,000 units 09/12/19 09:00 09/12/19 08:18 Vitamin D3 PO 2,000 units DAILY JAM Administration Diltiazem HCl 120 mg 09/10/19 21:00 09/11/19 22:41 Cardizem Cd PO 120 mg HS JAM Administration Estrogens Conjugated 0 gm 09/12/19 09:00 09/12/19 08:19 Premarin Cream VAG Not Given Q2DAYS JAM Fluticasone Propionate 0 gm 09/11/19 21:00 09/12/19 08:17 Flonase Nasal [place] NASAL 1 spr HS JAM Administration Guaifenesin 600 mg 09/10/19 21:00 09/12/19 08:19 Mucinex PO 600 mg Q12HR JAM Administration Dextrose/Sodium Chloride 1,000 mls @ 75 mls/hr 09/10/19 16:45 09/11/19 22:45 D5 0.9% Ns IV 1,000 mls .[id number] JAM Administration Rosuvastatin Calcium 10 mg 09/10/19 21:00 09/11/19 22:41 Crestor PO 10 mg QPM JAM Administration - Exam Eye: PERRL, anicteric sclera Heart: RRR, no murmur, no gallops, no rubs, normal peripheral pulses Respiratory: CTAB, no wheezes, no rales, no ronchi, normal chest expansion, no tachypnea, normal percussion Gastrointestinal: soft, non-tender, non-distended, normal bowel sounds, no palpable masses, no hepatomegaly, no splenomegaly Extremities: no cyanosis Hosp A/P (1) Nausea & vomiting Code(s): R11.2 - NAUSEA WITH VOMITING, UNSPECIFIED Status: Acute (2) Pancytopenia Code(s): D61.818 - OTHER PANCYTOPENIA Status: Acute (3) HTN (hypertension) Code(s): I10 - ESSENTIAL (PRIMARY) HYPERTENSION Status: Chronic (4) Rectal cancer Code(s): C20 - MALIGNANT NEOPLASM OF RECTUM Status: Acute - Plan * Nausea and vomiting- resolved * Pancytopenia- due to Zyvox. ID recommendations noted. She has been taken off all antibiotics * Will continue to monitor for recovery of her cell counts * HTN- blood pressure is stable * Urology input appreciated- she may need Ureteroscopy soon, and STENT replacement * Continue PT/OT
[2019-09-12] MEDS: Rosuvastatin 10 MG TAB PO SCH (21:38)
[2019-09-12] MEDS: Dextrose 5 % And 0.9 % NaCl 1,000 ML IV SCH (21:39)
[2019-09-13 04:59] LABS: Hemoglobin 8.5 g/dL (12.0-16.0); Mean Corpuscular HGB CONC 33.5 g/dL (32.0-36.0); Mean Corpuscular Hemoglobin 32.7 pg (27.0-31.0); Mean Corpuscular Volume 97.5 fL (78.0-98.0); Mean Platelet Volume 10.6 fL (7.4-10.4); Platelet Count 24 thou/uL (130-400); RBC Distribution Width 11.7 % (11.5-14.5); Red Blood Cell (RBC) Count 2.58 mill/uL (4.20-5.40)
[2019-09-13 05:05] LABS: Eosinophils 4 % (0-10); Hypochromia SLIGHT = 6-15 cells (100X) (0-5/hpf); Lymphocytes 52 % (21-51); MDiff Complete? YES; Monocytes 6 % (0-10); Neutrophil 38 % (42-75); Platelet Morphology Comment Appears Decreased
[2019-09-13 05:15] LABS: Anion Gap 10 mmol/L (10-20); BUN (Urea Nitrogen) 17 mg/dL (9.8-20.1); Calc. Creatinine Clearance 30 mL/min (70-130); Carbon Dioxide 20 mmol/L (23-31); Chloride 117 mmol/L (98-107); Estimated GFR-MDRD 39; Glucose 124 mg/dL (83-110); Sodium 143 mmol/L (136-145)
[2019-09-13] MEDS: guaiFENesin ER 600 MG TAB PO SCH ×2 (08:50→20:11)
[2019-09-13] MEDS: Calcium Carbonate 600 MG + Vit D TAB PO SCH ×2 (08:50→16:42)
[2019-09-13] MEDS: Pancrelipase DR 12000 1 CAP PO SCH ×3 (08:50→16:42)
--- NOTE | 2019-09-13 09:03 | PRG ---
DATE OF SERVICE: 09/13/2019 Her vital signs are stable. She has had a low-grade temperature. She is not on any antibiotics currently. She seems to be feeling well. She has had no nausea, vomiting. She is tolerating a diet, although she does not like the heart healthy diet and her diarrhea has stopped. She still has some upper respiratory tract symptoms, which may either be related to allergy. It was felt she had sinusitis and been placed on antibiotic by her flight mechanic, but it would be good to keep her off antibiotics as possible. At this point in time, her repeat urine culture from the is no growth. She was still on antibiotics and I am going to a repeat urine culture today. We will look at hopefully going to do a procedure next week. Her creatinine is now normal also, which probably is related to improvement in her dehydration. Hopefully, she will be in the hospital the day or two to continue to get better before being discharged. Job ID: [id number]
[2019-09-13] MEDS: Dextrose 5 % And 0.9 % NaCl 1,000 ML IV SCH ×2 (11:04→18:24)
[2019-09-13 12:32] LABS: Bacteria/HPF None Seen HPF (None Seen); Bilirubin Negative (Negative); Blood, Urine 2+ (Negative); Clarity Clear (Clear); Glucose, Urine (Dipstick) Normal (Negative); Leukocyte 25 Leu/uL (Negative); Nitrite Negative (Negative); Protein, Urine (Dipstick) 10 mg/dL (Neg-Trace); RBC/HPF Greater than 50 HPF (0-3); Squamous Epithelial None Seen HPF (0-3); Urobilinogen Normal mg/dL (Less than 2)
[2019-09-13 12:36] LABS: Urine Culture Reflex Yes Yes
--- NOTE | 2019-09-13 14:38 | PDOC.HOSPP ---
- Subjective Encounter Date: 09/13/19 Encounter Time: 14:36 Subjective: Ms. Moss was seen today in follow-up of pancytopenia from Linezolid. She does not have any complaints. No sore throat, cough, no diarrhea. - Objective Vital Signs & Weight: Vital Signs (12 hours) Temp Pulse Resp BP Pulse Ox 09/13/19 11:25 99.7 F H 75 16 141/67 H 97 09/13/19 08:00 98.7 F 68 17 118/62 97 09/13/19 07:47 98.7 F 68 17 118/62 97 09/13/19 03:52 99.9 F H 73 16 116/61 97 Weight Admit Weight 124 lb Weight 124 lb 8 oz I&O: 09/12/19 09/13/19 09/14/19 06:59 06:59 06:59 Intake Total 700 1450 1140 Output Total 600 1100 1100 Balance 100 350 40 Result Diagrams: 09/13/19 04:37 09/13/19 04:37 Hospitalist ROS - Medication Medications: Active Medications Generic Name Dose Route Start Last Admin Trade Name Freq PRN Reason Stop Dose Admin Acetaminophen 650 mg 09/10/19 20:15 09/10/19 22:12 Tylenol PO 650 mg Q4H PRN Administration Headache/Fever/Mild Pain (1-3) Lipase/Protease/Amylase 4 cap 09/11/19 08:00 09/13/19 11:[address] [place] [address] [id number] PO 4 cap TID-WM JAM Administration Calcium/Vitamin D 1 tab 09/11/19 17:00 09/13/19 08:50 Caltrate 600 + Vit D PO 1 tab BID-WM JAM Administration Cholecalciferol 2,000 units 09/12/19 09:00 09/13/19 08:50 Vitamin D3 PO 2,000 units DAILY JAM Administration Diltiazem HCl 120 mg 09/10/19 21:00 09/12/19 21:38 Cardizem Cd PO 120 mg HS JAM Administration Estrogens Conjugated 0 gm 09/12/19 09:00 09/12/19 08:19 Premarin Cream VAG Not Given Q2DAYS JAM Fluticasone Propionate 0 gm 09/11/19 21:00 09/12/19 08:17 Flonase Nasal [place] NASAL 1 spr HS JAM Administration Guaifenesin 600 mg 09/10/19 21:00 09/13/19 08:50 Mucinex PO 600 mg Q12HR JAM Administration Dextrose/Sodium Chloride 1,000 mls @ 75 mls/hr 09/10/19 16:45 09/13/19 11:04 D5 0.9% Ns IV Not Given .[id number] JAM Rosuvastatin Calcium 10 mg 09/10/19 21:00 09/12/19 21:38 Crestor PO 10 mg QPM JAM Administration - Exam Eye: PERRL, anicteric sclera Heart: RRR, no murmur, no gallops, no rubs, normal peripheral pulses Respiratory: CTAB, no wheezes, no rales, no ronchi, normal chest expansion, no tachypnea, normal percussion Gastrointestinal: soft, non-tender, non-distended, normal bowel sounds, no palpable masses, no hepatomegaly Extremities: no cyanosis, no clubbing, no edema Hosp A/P (1) Nausea & vomiting Code(s): R11.2 - NAUSEA WITH VOMITING, UNSPECIFIED Status: Acute (2) Pancytopenia Code(s): D61.818 - OTHER PANCYTOPENIA Status: Acute (3) HTN (hypertension) Code(s): I10 - ESSENTIAL (PRIMARY) HYPERTENSION Status: Chronic (4) Rectal cancer Code(s): C20 - MALIGNANT NEOPLASM OF RECTUM Status: Acute - Plan * Nausea and vomiting- resolved * Pancytopenia- due to Zyvox * Will continue to monitor for recovery of her cell counts- then she can be transferred to Rehab * HTN- blood pressure is stable * Continue PT/OT
[2019-09-13] MEDS: Rosuvastatin 10 MG TAB PO SCH (20:09)
[2019-09-13] MEDS: Fluticasone Propionate Nasal Spray 16 gm Bottle NASAL SCH (20:11)
[2019-09-14 05:30] LABS: Eosinophils 6 % (0-10); Hemoglobin 8.5 g/dL (12.0-16.0); Lymphocytes 51 % (21-51); MDiff Complete? YES; Mean Corpuscular HGB CONC 34.4 g/dL (32.0-36.0); Mean Corpuscular Hemoglobin 33.5 pg (27.0-31.0); Mean Corpuscular Volume 97.6 fL (78.0-98.0); Mean Platelet Volume 10.6 fL (7.4-10.4); Monocytes 16 % (0-10); Neutrophil 26 % (42-75); Platelet Count 22 thou/uL (130-400); Platelet Morphology Comment Appears Decreased; RBC Distribution Width 11.7 % (11.5-14.5); Red Blood Cell (RBC) Count 2.54 mill/uL (4.20-5.40); White Blood Cell (WBC) Count 2.9 thou/uL (4.8-10.8)
[2019-09-14] MEDS: Pancrelipase DR 12000 1 CAP PO SCH ×3 (09:25→17:31)
[2019-09-14] MEDS: guaiFENesin ER 600 MG TAB PO SCH ×2 (09:26→20:28)
[2019-09-14] MEDS: Calcium Carbonate 600 MG + Vit D TAB PO SCH ×2 (09:26→17:31)
[2019-09-14] MEDS: Estrogens, Conjugated 30 GM TUBE VAG SCH (09:28)
--- NOTE | 2019-09-14 11:35 | PRG ---
DATE OF SERVICE: 09/14/2019 SUBJECTIVE: This patient has been with low-grade temperature, at most 99.8. Vital signs have been stable. She is eating and drinking okay. No more nausea or vomiting. She is not having a lot of diarrhea at this point. Her laboratory still shows problems with pancytopenia. Her hemoglobin is 8.5, her white count is 2.9, and her platelet count is 22. These have not really come up yet. She is not on any antibiotics and her repeat microbiology shows urine culture from admission and urine culture yesterday that are both no growth so far. I think once her white blood cell count and platelet count are improving, we will look at trying to again do ureteroscopy. She is a difficult patient in terms of her medical care to take care of and hopefully this would not be too much longer before she starts to improve. Hopefully, she will be in the hospital long enough to see this improvement starting and not go to rehab before she is safe and ready to go to rehab. Job ID: [id number]
--- NOTE | 2019-09-14 12:50 | CON ---
DATE OF CONSULTATION: REASON FOR CONSULTATION: Pancytopenia. HISTORY OF PRESENT ILLNESS: Ms. Moss is a very pleasant 84-year-old female with past medical history of rectosigmoid cancer in 2010, she underwent chemoradiation and has been followed annually since that time. 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 Bennett. Over the last several weeks, she complains of worsening fatigue and weakness. She has had upper respiratory issues and was given antibiotics by her primary care. She was also seen by Dr. Bennett for possible stent infection and diarrhea over the last several weeks. It appears she has been on linezolid, Macrobid, Augmentin, doxycycline, and a dose of Levaquin in the ER. On presentation to the ER, her white count was 2.7 with an ANC of 1.3, hemoglobin was 8.8, and platelet count was 32,000. This is a significant drop from when she had lab drawn the month prior, which showed a WBC count of 9.3, hemoglobin of 11.1, and a platelet count of 222,000. The patient denies any hemoptysis, epistasis, blood in her stool. No new rash. No fever greater than 100. She was admitted for further workup. She was seen by Dr. Muniz and Dr. Bennett. Her antibiotics have been stopped with minimal improvement in her blood counts. PAST MEDICAL HISTORY: 1. Stage IIB rectal adenocarcinoma, status post chemoradiation, and APR in 2010. 2. Chronic renal insufficiency. 3. Transitional cell carcinoma of the bladder diagnosed in 2019. 4. Pancreatic stones. 5. High cholesterol. 6. Ureteral stent placement. PAST SURGICAL HISTORY: 1. Cardiac ablation. 2. Polypectomy. 3. Lithotripsy. ALLERGIES: SULFA. HOME MEDICATIONS: 1. Ecotrin. 2. Multivitamin. 3. Cardizem. 4. Estrogen cream. 5. Creon. 6. Potassium. 7. Crestor. FAMILY HISTORY: Noncontributory. SOCIAL HISTORY: . Lives alone. Has a daughter who is currently in [place]. REVIEW OF SYSTEMS: A 10-point review of systems is negative. PHYSICAL EXAMINATION: VITAL SIGNS: Temperature is 99.2, pulse is 72, respiratory rate 14, blood pressure is 143/81, she is 98% on room air. GENERAL: This is a well-developed, well-nourished female, in no acute distress. HEENT: Normocephalic, atraumatic. Pupils are equal and reactive to light. NECK: Supple. CV: Regular rate and rhythm. LUNGS: Clear. ABDOMEN: Soft and nontender. She has colostomy intact. EXTREMITIES: No clubbing or cyanosis. SKIN: No rash. HEMATOLOGIC: She has small patch of petechiae on her chest. None on her lower extremities. NEUROLOGIC: Nonfocal. PERTINENT LABORATORIES AND X-RAYS: Current WBCs are 2.9, hemoglobin 8.5, hematocrit 24.8, platelet count is 22,000, she has 26% neutrophils, 51% lymphocytes, 16% monocytes. Sodium is 143, potassium 4.0, chloride 117, CO2 is 20, BUN is 17, creatinine 1.31, calcium 8, bilirubin is 0.3, AST is 25, ALT is 26, alkaline phosphatase is 63. Troponin 0.015. BNP is 174. Serum total protein 6.2, albumin 3.8, globulin 2.4, and lipase is 5. B12 and folic acid were normal. Urine showed 2+ blood only. ASSESSMENT: 1. Acute pancytopenia, possibly secondary to antibiotics. 2. History of transitional cell carcinoma of the bladder. 3. History of rectal adenocarcinoma. DISCUSSION: The patient's antibiotics have been stopped. She has not improved in her blood counts yet. I would recommend continuing monitoring of her CBC daily for resolution of her pancytopenia. We will continue neutropenic precautions for now. She has no evidence of bleeding, so I would not transfuse platelets. I would postpone discharge until improvement in her blood counts. The case has been discussed with Dr. Kee. Thank you for the consult. Job ID: [id number]
--- NOTE | 2019-09-14 13:26 | PDOC.HOSPP ---
- Subjective Encounter Date: 09/14/19 Encounter Time: 08:00 Subjective: Pt seen for followup re: pancytopenia. Denies chest pain, shortness of breath, fevers or chills. - Objective Vital Signs & Weight: Vital Signs (12 hours) Temp Pulse Resp BP Pulse Ox 09/14/19 11:07 99.2 F 72 14 143/81 H 98 09/14/19 08:25 99.8 F H 76 14 118/77 97 09/14/19 08:00 97 09/14/19 03:35 98.5 F 66 16 122/76 97 Weight Admit Weight 124 lb Weight 124 lb 8 oz I&O: 09/13/19 09/14/19 09/15/19 06:59 06:59 06:59 Intake Total 1450 2440 Output Total 1100 1100 Balance 350 1340 Result Diagrams: 09/14/19 04:46 09/13/19 04:37 Additional Labs: Labs and MARs reviewed by ca Hospitalist ROS - Review of Systems Cardiovascular: denies: chest pain, palpitations, orthopnea, paroxysmal noc. dyspnea, edema, light headedness Gastrointestinal: denies: nausea, vomiting, abdominal pain, diarrhea, constipation, melena, hematochezia - Medication Medications: Active Medications Generic Name Dose Route Start Last Admin Trade Name Freq PRN Reason Stop Dose Admin Acetaminophen 650 mg 09/10/19 20:15 09/10/19 22:12 Tylenol PO 650 mg Q4H PRN Administration Headache/Fever/Mild Pain (1-3) Lipase/Protease/Amylase 4 cap 09/11/19 08:00 09/14/19 11:[address] [id number] PO 4 cap TID-[facility] Administration Calcium/Vitamin D 1 tab 09/11/19 17:00 09/14/19 09:26 Caltrate 600 + Vit D PO 1 tab BID-[facility] Administration Cholecalciferol 2,000 units 09/12/19 09:00 09/14/19 09:26 Vitamin D3 PO 2,000 units DAILY JAM Administration Diltiazem HCl 120 mg 09/10/19 21:00 09/13/19 20:09 Cardizem Cd PO 120 mg HS JAM Administration Estrogens Conjugated 0 gm 09/12/19 09:00 09/14/19 09:28 Premarin Cream VAG Not Given Q2DAYS [facility] Fluticasone Propionate 0 gm 09/11/19 21:00 09/13/19 20:11 Flonase Nasal [place] NASAL 1 spr HS JAM Administration Guaifenesin 600 mg 09/10/19 21:00 09/14/19 09:26 Mucinex PO 600 mg Q12HR JAM Administration Dextrose/Sodium Chloride 1,000 mls @ 75 mls/hr 09/10/19 16:45 09/13/19 18:24 D5 0.9% Ns IV 1,000 mls .[id number] JAM Administration Rosuvastatin Calcium 10 mg 09/10/19 21:00 09/13/19 20:09 Crestor PO 10 mg QPM JAM Administration - Exam General Appearance: NAD Eye: anicteric sclera ENT: moist mucosa Neck: supple Heart: RRR, no rubs Respiratory: CTAB, no wheezes Gastrointestinal: soft, non-tender Extremities: no cyanosis Psychiatric: normal affect, normal behavior Hosp A/P - Plan Hosp A/P - Assessment (1) Pancytopenia Code(s): D61.818 - OTHER PANCYTOPENIA Status: Acute (2) HTN (hypertension) Code(s): I10 - ESSENTIAL (PRIMARY) HYPERTENSION Status: Chronic (3) Rectal cancer Code(s): C20 - MALIGNANT NEOPLASM OF RECTUM Status: Chronic (4) Nausea & vomiting Code(s): R11.2 - NAUSEA WITH VOMITING, UNSPECIFIED Status: Resolved - Plan * Pancytopenia- ? due to Zyvox. Consult oncology for opinion. Pt is neutropenic today, on neutropenic precautions. * Pt approved for Inpt Rehab when clinically stable. * HTN- controlled. * Continue PT/OT
[2019-09-14] MEDS: Dextrose 5 % And 0.9 % NaCl 1,000 ML IV SCH (14:17)
--- NOTE | 2019-09-14 18:46 | PRG ---
DATE OF SERVICE: 09/14/2019 SUBJECTIVE: Ms. Moss is stronger. She is able to walk now. She is eating well without vomiting. Stools are more firmer. No respiratory symptoms. No abdominal pain. OBJECTIVE: VITAL SIGNS: T-max 99.8, blood pressure 126/77, pulse 73, respirations 18, and O2 saturation 98. GENERAL: Awake, alert, and oriented. HEENT: Ocular movements conjugate. Oral cavity normal. LUNGS: Symmetric clear breath sounds. HEART: S1 and S2. Regular rate. ABDOMEN: Soft, not distended or tender. EXTREMITIES: Moves extremities equally. Plantar responses are flexor. LABORATORY DATA: White cell count is still at 2.9, hemoglobin 8.5, and platelets 22. She has 26% neutrophils and 51% lymphocytes, slight elliptocytes. The creatinine is down to 1.3. Urinalysis with 4 to 6 wbc's. Microbiology with negative urine culture 24 hours. C. difficile negative. She has 2 samples for urine culture negative. No growth at 24 hours. 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 Recent replacement of one of the stents, vomiting in the past few days, weakness, and pancytopenia with linezolid toxicity still considered possible, but would have expected some better response by now. Heme/Onc was consulted and their impression was possible antibiotic associated pancytopenia. We will see what she does in the next few days. If she does not improve, may have to consider evaluating her bone marrow. Job ID: [id number]
[2019-09-14] MEDS: Fluticasone Propionate Nasal Spray 16 gm Bottle NASAL SCH (20:28)
[2019-09-14] MEDS: Rosuvastatin 10 MG TAB PO SCH (20:29)
[2019-09-15] MEDS: Dextrose 5 % And 0.9 % NaCl 1,000 ML IV SCH ×2 (05:23→09:59)
[2019-09-15 05:26] LABS: Platelet Count 27 thou/uL (130-400)
[2019-09-15 05:33] LABS: Eosinophils 2 % (0-10); Hemoglobin 8.2 g/dL (12.0-16.0); Lymphocytes 46 % (21-51); MDiff Complete? YES; Mean Corpuscular HGB CONC 33.3 g/dL (32.0-36.0); Mean Corpuscular Hemoglobin 32.7 pg (27.0-31.0); Mean Corpuscular Volume 98.2 fL (78.0-98.0); Mean Platelet Volume 10.9 fL (7.4-10.4); Monocytes 16 % (0-10); Neutrophil 34 % (42-75); Platelet Morphology Comment Appears Decreased; RBC Distribution Width 11.8 % (11.5-14.5); Red Blood Cell (RBC) Count 2.52 mill/uL (4.20-5.40); White Blood Cell (WBC) Count 3.7 thou/uL (4.8-10.8)
[2019-09-15 05:34] LABS: Anion Gap 11 mmol/L (10-20); BUN (Urea Nitrogen) 13 mg/dL (9.8-20.1); Calc. Creatinine Clearance 36 mL/min (70-130); Calcium 8.2 mg/dL (7.8-10.44); Carbon Dioxide 18 mmol/L (23-31); Chloride 116 mmol/L (98-107); Estimated GFR-MDRD 49; Glucose 114 mg/dL (83-110); Potassium 3.6 mmol/L (3.5-5.1); Sodium 141 mmol/L (136-145)
[2019-09-15] MEDS ORDERED: Ketorolac Tromethamine 30 MG/ML VIAL ONE (06:40)
--- NOTE | 2019-09-15 08:59 | PRG ---
DATE OF SERVICE: 09/15/2019 The patient is afebrile with stable vital signs. She had a little swelling in her hands. They felt a little tight. She was wondering if it was a reflection of her kidneys at all. Her creatinine today is 1.08, which is the best it has been in months. I do not think it has anything to do with kidney function. Her white count is up slightly today to 3.7 and her platelet counts are 27, which are also up slightly. This is some improvement. She has no other complaints. We will just wait out her pancytopenia. Hopefully, that will improve. We will leave her with the stent. Her kidney function is the best it has been I think and this may be a reflection of her no longer being dehydrated from nausea, vomiting, and from diarrhea. We will still look at needing to do ureteroscopy, but I will put that off for probably at least another 10 days or so. Job ID: [id number]
[2019-09-15] MEDS: Pancrelipase DR 12000 1 CAP PO SCH ×3 (09:48→17:53)
[2019-09-15] MEDS: guaiFENesin ER 600 MG TAB PO SCH ×2 (09:49→21:02)
[2019-09-15] MEDS: Calcium Carbonate 600 MG + Vit D TAB PO SCH ×2 (09:49→17:53)
--- NOTE | 2019-09-15 13:45 | PDOC.HOSPP ---
- Subjective Encounter Date: 09/15/19 Encounter Time: 09:00 Subjective: Pt seen for followup re: pancytopenia. Feels better, no complaints. - Objective Vital Signs & Weight: Vital Signs (12 hours) Temp Pulse Pulse Pulse Pulse Resp BP 09/15/19 12:00 98.5 F 76 18 09/15/19 11:16 89 118 H 76 115/65 09/15/19 07:30 98.4 F 70 12 09/15/19 04:30 98.0 F 70 16 BP BP BP Pulse Ox 09/15/19 12:00 119/68 98 09/15/19 11:16 132/73 112/72 09/15/19 07:30 133/71 98 09/15/19 04:30 120/74 96 Weight Admit Weight 124 lb Weight 124 lb 8 oz I&O: 09/14/19 09/15/19 09/16/19 06:59 06:59 06:59 Intake Total 2440 3205 Output Total 1100 1930 Balance 1340 1275 Result Diagrams: 09/15/19 04:53 09/15/19 04:53 Additional Labs: Labs and MARs reviewed by nd Hospitalist ROS - Review of Systems Genitourinary: denies: dysuria, frequency, incontinence, hematuria, retention Musculoskeletal: denies: neck pain, shoulder pain, arm pain, back pain, hand pain, leg pain, foot pain - Medication Medications: Active Medications Generic Name Dose Route Start Last Admin Trade Name Freq PRN Reason Stop Dose Admin Acetaminophen 650 mg 09/10/19 20:15 09/10/19 22:12 Tylenol PO 650 mg Q4H PRN Administration Headache/Fever/Mild Pain (1-3) Lipase/Protease/Amylase 4 cap 09/11/19 08:00 09/15/19 09:48 Dagoberto Ramirez [id number] PO 4 cap TID-WM JAM Administration Calcium/Vitamin D 1 tab 09/11/19 17:00 09/15/19 09:49 Caltrate 600 + Vit D PO 1 tab BID-WM JAM Administration Cholecalciferol 2,000 units 09/12/19 09:00 09/15/19 09:49 Vitamin D3 PO 2,000 units DAILY JAM Administration Diltiazem HCl 120 mg 09/10/19 21:00 09/14/19 20:29 Cardizem Cd PO 120 mg HS JAM Administration Estrogens Conjugated 0 gm 02/24/20 09:00 09/14/19 09:28 Premarin Cream VAG Not Given Q2DAYS JAM Fluticasone Propionate 0 gm 09/11/19 21:00 09/14/19 20:28 Flonase Nasal [place] NASAL 1 spr HS JAM Administration Guaifenesin 600 mg 09/10/19 21:00 09/15/19 09:49 Mucinex PO 600 mg Q12HR JAM Administration Dextrose/Sodium Chloride 1,000 mls @ 75 mls/hr 09/10/19 16:45 09/15/19 05:23 D5 0.9% Ns IV Not Given .[id number] JAM Rosuvastatin Calcium 10 mg 09/10/19 21:00 09/14/19 20:29 Crestor PO 10 mg QPM JAM Administration - Exam General Appearance: NAD, awake alert Eye: anicteric sclera ENT: normocephalic atraumatic, no oropharyngeal lesions, moist mucosa Neck: supple Heart: RRR, no rubs Respiratory: CTAB, normal chest expansion Gastrointestinal: soft, non-tender Gastrointestinal - other findings: ostomy Extremities: no cyanosis Psychiatric: normal affect, normal behavior Hosp A/P - Plan Hosp A/P - Assessment (1) Pancytopenia Code(s): D61.818 - OTHER PANCYTOPENIA Status: Acute (2) HTN (hypertension) Code(s): I10 - ESSENTIAL (PRIMARY) HYPERTENSION Status: Chronic (3) Rectal cancer Code(s): C20 - MALIGNANT NEOPLASM OF RECTUM Status: Chronic (4) Nausea & vomiting Code(s): R11.2 - NAUSEA WITH VOMITING, UNSPECIFIED Status: Resolved - Plan * Pancytopenia- ? due to Zyvox. ANC improved to 1250 from 750 yesterday. Plts improved to 27k. * Continue neutropenic precautions. * Pt approved for [facility] when clinically stable. Will discharge after neutropenia resolves. * HTN- controlled. * Continue PT/OT
[2019-09-15] MEDS: Rosuvastatin 10 MG TAB PO SCH (21:02)
[2019-09-15] MEDS: Fluticasone Propionate Nasal Spray 16 gm Bottle NASAL SCH (21:03)
[2019-09-16] MEDS: Dextrose 5 % And 0.9 % NaCl 1,000 ML IV SCH ×3 (06:03→22:12)
--- NOTE | 2019-09-16 08:18 | PRG ---
DATE OF SERVICE: 09/16/2019 The patient is afebrile with stable vital signs. She feels well. She looks much better. No lab work has yet been drawn today. Her final urine cultures have come back as negative. She can go home whenever it is safe from her neutropenia. We will not be doing anything regarding the stent for at least a week to 10 days. Job ID: [id number]
[2019-09-16 09:32] LABS: Hemoglobin 8.5 g/dL (12.0-16.0); Mean Corpuscular HGB CONC 32.6 g/dL (32.0-36.0); Mean Corpuscular Hemoglobin 32.1 pg (27.0-31.0); Mean Corpuscular Volume 98.4 fL (78.0-98.0); Mean Platelet Volume 10.5 fL (7.4-10.4); Platelet Count 38 thou/uL (130-400); Red Blood Cell (RBC) Count 2.65 mill/uL (4.20-5.40); White Blood Cell (WBC) Count 3.4 thou/uL (4.8-10.8)
[2019-09-16 09:50] LABS: Anion Gap 12 mmol/L (10-20); BUN (Urea Nitrogen) 12 mg/dL (9.8-20.1); Calc. Creatinine Clearance 26 mL/min (70-130); Calcium 8.3 mg/dL (7.8-10.44); Carbon Dioxide 19 mmol/L (23-31); Chloride 113 mmol/L (98-107); Estimated GFR-MDRD 34; Glucose 126 mg/dL (83-110); Potassium 3.1 mmol/L (3.5-5.1); Sodium 141 mmol/L (136-145)
[2019-09-16] MEDS: Calcium Carbonate 600 MG + Vit D TAB PO SCH ×2 (09:52→17:24)
[2019-09-16] MEDS: guaiFENesin ER 600 MG TAB PO SCH ×2 (09:52→22:14)
[2019-09-16] MEDS: Pancrelipase DR 12000 1 CAP PO SCH ×3 (09:54→17:25)
[2019-09-16 10:02] LABS: Band 5 % (5-11); Eosinophils 7 % (0-10); Lymphocytes 29 % (21-51); MDiff Complete? YES; Monocytes 11 % (0-10); Myelocyte 1 % (0-0); Neutrophil 43 % (42-75); Platelet Morphology Comment Appears Decreased; Polychromasia SLIGHT = 2-3 cells (100X) (0-2/hpf); Reactive Lymphocytes 4 % (0-10); Schistocytes SLIGHT = 2-5 cells (100X) (0-1/hpf)
[2019-09-16] MEDS: Estrogens, Conjugated 30 GM TUBE VAG SCH (10:03)
--- NOTE | 2019-09-16 17:54 | PDOC.HOSPP ---
- Subjective Encounter Date: 09/16/19 Encounter Time: 08:00 Subjective: Pt seen for followup for pancytopenia. Feels better, no complaints. - Objective Vital Signs & Weight: Vital Signs (12 hours) Temp Pulse Pulse Resp BP BP Pulse Ox 09/16/19 15:20 72 18 122/68 98 09/16/19 14:39 79 108/66 09/16/19 11:21 98.7 F 68 18 124/66 98 09/16/19 08:40 98.7 F 67 16 126/54 L 97 Weight Admit Weight 124 lb Weight 124 lb 8 oz I&O: 09/15/19 09/16/19 09/17/19 06:59 06:59 06:59 Intake Total 3205 3680 1700 Output Total 1930 1500 1100 Balance 1275 2180 600 Result Diagrams: 09/16/19 09:11 09/16/19 09:11 Additional Labs: Labs and MARs reviewed by me Hospitalist ROS - Review of Systems Cardiovascular: denies: chest pain, palpitations, orthopnea, paroxysmal noc. dyspnea, edema, light headedness Genitourinary: denies: dysuria, frequency, incontinence, hematuria, retention - Medication Medications: Active Medications Generic Name Dose Route Start Last Admin Trade Name Freq PRN Reason Stop Dose Admin Acetaminophen 650 mg 09/10/19 20:15 09/10/19 22:12 Tylenol PO 650 mg Q4H PRN Administration Headache/Fever/Mild Pain (1-3) Lipase/Protease/Amylase 4 cap 09/11/19 08:00 09/16/19 17:[address] [place] [address] [id number] PO 4 cap TID-WM [facility] Administration Calcium/Vitamin D 1 tab 09/11/19 17:00 09/16/19 17:24 Caltrate 600 + Vit D PO 1 tab BID-WM JAM Administration Cholecalciferol 2,000 units 09/12/19 09:00 09/16/19 09:51 Vitamin D3 PO 2,000 units DAILY JAM Administration Diltiazem HCl 120 mg 09/10/19 21:00 09/15/19 21:02 Cardizem Cd PO 120 mg HS JAM Administration Estrogens Conjugated 0 gm 09/12/19 09:00 09/16/19 10:03 Premarin Cream VAG Not Given Q2DAYS JAM Fluticasone Propionate 0 gm 09/11/19 21:00 09/15/19 21:03 Flonase Nasal [place] NASAL 1 spr HS JAM Administration Guaifenesin 600 mg 09/10/19 21:00 09/16/19 09:52 Mucinex PO 600 mg Q12HR JAM Administration Dextrose/Sodium Chloride 1,000 mls @ 75 mls/hr 09/10/19 16:45 09/16/19 09:52 D5 0.9% Ns IV 1,000 mls .[id number] JAM Administration Rosuvastatin Calcium 10 mg 09/10/19 21:00 09/15/19 21:02 Crestor PO 10 mg QPM JAM Administration - Exam General Appearance: awake alert Eye: anicteric sclera ENT: moist mucosa Neck: supple Heart: RRR Respiratory: CTAB, no rales Gastrointestinal: soft Gastrointestinal - other findings: ostomy Skin: no rashes Psychiatric: normal affect, normal behavior Hosp A/P - Plan Hosp A/P - Assessment (1) Pancytopenia Code(s): D61.818 - OTHER PANCYTOPENIA Status: Acute (2) HTN (hypertension) Code(s): I10 - ESSENTIAL (PRIMARY) HYPERTENSION Status: Chronic (3) Rectal cancer Code(s): C20 - MALIGNANT NEOPLASM OF RECTUM Status: Chronic (4) Nausea & vomiting Code(s): R11.2 - NAUSEA WITH VOMITING, UNSPECIFIED Status: Resolved - Plan * Pancytopenia- ? due to Zyvox. ANC improved to 1,462. * Continue neutropenic precautions. * Pt approved for [place] when clinically stable. * HTN- controlled.
[2019-09-16] MEDS ORDERED: Potassium Chloride 20 MEQ TAB PO SCH (18:00)
[2019-09-16] MEDS: Rosuvastatin 10 MG TAB PO SCH (22:10)
[2019-09-16] MEDS: Fluticasone Propionate Nasal Spray 16 gm Bottle NASAL SCH (22:10)
[2019-09-17 06:41] LABS: Anion Gap 12 mmol/L (10-20); BUN (Urea Nitrogen) 10 mg/dL (9.8-20.1); Calc. Creatinine Clearance 34 mL/min (70-130); Calcium 8.4 mg/dL (7.8-10.44); Carbon Dioxide 19 mmol/L (23-31); Chloride 116 mmol/L (98-107); Estimated GFR-MDRD 46; Glucose 105 mg/dL (83-110); Potassium 4.1 mmol/L (3.5-5.1); Sodium 143 mmol/L (136-145)
[2019-09-17 07:58] LABS: Band 2 % (5-11); Eosinophils 2 % (0-10); Hemoglobin 8.1 g/dL (12.0-16.0); Lymphocytes 34 % (21-51); MDiff Complete? YES; Mean Corpuscular HGB CONC 33.8 g/dL (32.0-36.0); Mean Corpuscular Hemoglobin 33.1 pg (27.0-31.0); Mean Corpuscular Volume 97.8 fL (78.0-98.0); Mean Platelet Volume 10.3 fL (7.4-10.4); Monocytes 21 % (0-10); Neutrophil 41 % (42-75); Platelet Count 61 thou/uL (130-400); Platelet Morphology Comment Appears Decreased; Red Blood Cell (RBC) Count 2.44 mill/uL (4.20-5.40); White Blood Cell (WBC) Count 5.2 thou/uL (4.8-10.8)
[2019-09-17] MEDS: guaiFENesin ER 600 MG TAB PO SCH ×2 (08:26→21:14)
[2019-09-17] MEDS: Calcium Carbonate 600 MG + Vit D TAB PO SCH ×2 (08:26→17:34)
[2019-09-17] MEDS: Pancrelipase DR 12000 1 CAP PO SCH ×3 (08:27→17:34)
[2019-09-17] MEDS: Dextrose 5 % And 0.9 % NaCl 1,000 ML IV SCH ×2 (10:47→21:29)
--- NOTE | 2019-09-17 13:05 | PDOC.HOSPP ---
- Subjective Encounter Date: 09/17/19 Encounter Time: 07:40 Subjective: Pt seen for followup re; pancytopenia. No complaints today. - Objective Vital Signs & Weight: Vital Signs (12 hours) Temp Pulse Resp BP Pulse Ox 09/17/19 11:37 98.7 F 71 18 145/76 H 98 09/17/19 07:23 98.5 F 72 16 157/74 H 96 09/17/19 04:00 98.5 F 72 18 138/78 95 Weight Admit Weight 124 lb Weight 124 lb 8 oz I&O: 09/16/19 09/17/19 09/18/19 06:59 06:59 06:59 Intake Total 3680 2900 900 Output Total 1500 1950 1000 Balance 2180 950 -100 Result Diagrams: 09/17/19 05:07 09/17/19 05:07 Additional Labs: Labs and MARs reviewed by vt Hospitalist ROS - Review of Systems Gastrointestinal: denies: nausea, vomiting, abdominal pain, diarrhea, constipation, melena, hematochezia Genitourinary: denies: dysuria, frequency, incontinence, hematuria, retention - Medication Medications: Active Medications Generic Name Dose Route Start Last Admin Trade Name Freq PRN Reason Stop Dose Admin Acetaminophen 650 mg 09/10/19 20:15 09/10/19 22:12 Tylenol PO 650 mg Q4H PRN Administration Headache/Fever/Mild Pain (1-3) Lipase/Protease/Amylase 4 cap 09/11/19 08:00 09/17/19 11:[address] [place] [address] [id number] PO 4 cap TID-WM JAM Administration Calcium/Vitamin D 1 tab 09/11/19 17:00 09/17/19 08:26 Caltrate 600 + Vit D PO 1 tab BID-WM JAM Administration Cholecalciferol 2,000 units 09/12/19 09:00 09/17/19 08:25 Vitamin D3 PO 2,000 units DAILY JAM Administration Diltiazem HCl 120 mg 09/10/19 21:00 09/16/19 22:16 Cardizem Cd PO 120 mg HS JAM Administration Estrogens Conjugated 0 gm 09/12/19 09:00 09/16/19 10:03 Premarin Cream VAG Not Given Q2DAYS JAM Fluticasone Propionate 0 gm 09/11/19 21:00 09/16/19 22:10 Flonase Nasal [place] NASAL 1 spr HS JAM Administration Guaifenesin 600 mg 09/10/19 21:00 09/17/19 08:26 Mucinex PO 600 mg Q12HR JAM Administration Dextrose/Sodium Chloride 1,000 mls @ 75 mls/hr 09/10/19 16:45 09/17/19 10:47 D5 0.9% Ns IV 1,000 mls .[id number] JAM Administration Rosuvastatin Calcium 10 mg 09/10/19 21:00 09/16/19 22:10 Crestor PO 10 mg QPM JAM Administration - Exam General Appearance: awake alert Eye: anicteric sclera ENT: normocephalic atraumatic Heart: no rubs, normal peripheral pulses Respiratory: CTAB Gastrointestinal: soft, non-tender Psychiatric: normal affect, normal behavior Hosp A/P - Plan Hosp A/P - Assessment (1) Pancytopenia Code(s): D61.818 - OTHER PANCYTOPENIA Status: Acute (2) HTN (hypertension) Code(s): I10 - ESSENTIAL (PRIMARY) HYPERTENSION Status: Chronic (3) Rectal cancer Code(s): C20 - MALIGNANT NEOPLASM OF RECTUM Status: Chronic (4) Nausea & vomiting Code(s): R11.2 - NAUSEA WITH VOMITING, UNSPECIFIED Status: Resolved - Plan * Pancytopenia- ? due to Zyvox. * Neutropenia resolved. Leukopenia resolved. * Plt improved to 61k * Likely to [place] on Thursday
[2019-09-17] MEDS: Rosuvastatin 10 MG TAB PO SCH (21:12)
[2019-09-17] MEDS: Fluticasone Propionate Nasal Spray 16 gm Bottle NASAL SCH (21:17)
[2019-09-18 05:53] LABS: Anion Gap 10 mmol/L (10-20); BUN (Urea Nitrogen) 11 mg/dL (9.8-20.1); Calc. Creatinine Clearance 36 mL/min (70-130); Calcium 8.1 mg/dL (7.8-10.44); Carbon Dioxide 23 mmol/L (23-31); Chloride 113 mmol/L (98-107); Estimated GFR-MDRD 49; Glucose 113 mg/dL (83-110); Potassium 3.9 mmol/L (3.5-5.1); Sodium 142 mmol/L (136-145)
[2019-09-18 06:02] LABS: Hemoglobin 7.2 g/dL (12.0-16.0); Mean Corpuscular HGB CONC 33.9 g/dL (32.0-36.0); Mean Corpuscular Hemoglobin 33.1 pg (27.0-31.0); Mean Corpuscular Volume 97.8 fL (78.0-98.0); Mean Platelet Volume 8.6 fL (7.4-10.4); Platelet Count 102 thou/uL (130-400); Red Blood Cell (RBC) Count 2.18 mill/uL (4.20-5.40); White Blood Cell (WBC) Count 5.3 thou/uL (4.8-10.8)
[2019-09-18 06:21] LABS: Band 1 % (5-11); Elliptocytes SLIGHT = 2-5 cells (100X) (0-1/hpf); Eosinophils 3 % (0-10); Lymphocytes 22 % (21-51); MDiff Complete? YES; Metamyelocyte 1 % (0-0); Monocytes 11 % (0-10); Neutrophil 60 % (42-75); Platelet Morphology Comment Appears Decreased; Reactive Lymphocytes 2 % (0-10)
[2019-09-18] MEDS: Calcium Carbonate 600 MG + Vit D TAB PO SCH ×2 (08:39→17:28)
[2019-09-18] MEDS: Pancrelipase DR 12000 1 CAP PO SCH ×3 (08:39→17:28)
[2019-09-18] MEDS: guaiFENesin ER 600 MG TAB PO SCH ×2 (08:46→21:02)
[2019-09-18] MEDS: Estrogens, Conjugated 30 GM TUBE VAG SCH (10:42)
--- NOTE | 2019-09-18 13:17 | PDOC.HOSPP ---
- Subjective Encounter Date: 09/18/19 Encounter Time: 11:45 Subjective: pt up in bed complains of some pain around her rectal area. - Objective Vital Signs & Weight: Vital Signs (12 hours) Temp Pulse Resp BP Pulse Ox 09/18/19 10:48 98.8 F 96 18 146/79 H 97 09/18/19 08:00 96 09/18/19 07:46 98.6 F 71 16 136/64 96 09/18/19 04:00 98.3 F 66 18 129/73 95 Weight Admit Weight 124 lb Weight 124 lb 8 oz I&O: 09/17/19 09/18/19 09/19/19 06:59 06:59 06:59 Intake Total 2900 1700 Output Total 1950 2300 Balance 950 -600 Result Diagrams: 09/18/19 04:50 09/18/19 04:50 Hospitalist ROS - Review of Systems Cardiovascular: denies: chest pain, palpitations, orthopnea, paroxysmal noc. dyspnea, edema, light headedness, other Gastrointestinal: denies: nausea, vomiting, abdominal pain, diarrhea, constipation, melena, hematochezia, other Genitourinary: reports: other (rectal pain) Musculoskeletal: denies: neck pain, shoulder pain, arm pain, back pain, hand pain, leg pain, foot pain, other - Medication Medications: Active Medications Generic Name Dose Route Start Last Admin Trade Name Freq PRN Reason Stop Dose Admin Acetaminophen 650 mg 09/10/19 20:15 09/10/19 22:12 Tylenol PO 650 mg Q4H PRN Administration Headache/Fever/Mild Pain (1-3) Lipase/Protease/Amylase 4 cap 09/11/19 08:00 09/18/19 12:[address] [id number] PO 4 cap TID-WM JAM Administration Calcium/Vitamin D 1 tab 09/11/19 17:00 09/18/19 08:39 Caltrate 600 + Vit D PO 1 tab BID-WM JAM Administration Cholecalciferol 2,000 units 09/12/19 09:00 09/18/19 08:46 Vitamin D3 PO 2,000 units DAILY JAM Administration Diltiazem HCl 120 mg 09/10/19 21:00 09/17/19 21:12 Cardizem Cd PO 120 mg HS JAM Administration Estrogens Conjugated 0 gm 09/12/19 09:00 09/18/19 10:42 Premarin Cream VAG Not Given Q2DAYS JAM Fluticasone Propionate 0 gm 09/11/19 21:00 09/17/19 21:17 Flonase Nasal [place] NASAL 1 spr HS JAM Administration Guaifenesin 600 mg 09/10/19 21:00 09/18/19 08:46 Mucinex PO 600 mg Q12HR JAM Administration Dextrose/Sodium Chloride 1,000 mls @ 75 mls/hr 09/10/19 16:45 09/17/19 21:29 D5 0.9% Ns IV 1,000 mls .[id number] JAM Administration Rosuvastatin Calcium 10 mg 09/10/19 21:00 09/17/19 21:12 Crestor PO 10 mg QPM JAM Administration - Exam Neck: negative: supple, symmetric, no JVD, no thyromegaly, no lymphadenopathy, no carotid bruit, JVD Heart: negative: RRR, no murmur, no gallops, no rubs, normal peripheral pulses, irregular, diminshed peripheral pulses, murmur present, II/IV, III/IV Respiratory: negative: CTAB, no wheezes, no rales, no ronchi, normal chest expansion, no tachypnea, normal percussion, rales, rhonchi, tachypneic, wheezes Gastrointestinal: negative: soft, non-tender, non-distended, normal bowel sounds , no palpable masses, no hepatomegaly, no splenomegaly, no bruit, no guarding, no rigidity, tender to palpation, distended, diminished bowl sounds, voluntary guarding Gastrointestinal - other findings: pt's rectal examined externally, no erythema noted. Hosp A/P - Plan 1) Pancytopenia Code(s): D61.818 - OTHER PANCYTOPENIA Status: Acute (2) HTN (hypertension) Code(s): I10 - ESSENTIAL (PRIMARY) HYPERTENSION Status: Chronic (3) Rectal cancer Code(s): C20 - MALIGNANT NEOPLASM OF RECTUM Status: Chronic (4) Nausea & vomiting Code(s): R11.2 - NAUSEA WITH VOMITING, UNSPECIFIED Status: Resolved - Plan * Pancytopenia- ? due to Zyvox. * Neutropenia resolved. Leukopenia resolved. * Plt improved * Likely to [place] on Thursday * will discontinue her iv fluids and asked nurse to remove the purewick.
[2019-09-18] MEDS: Rosuvastatin 10 MG TAB PO SCH (21:01)
[2019-09-18] MEDS: Fluticasone Propionate Nasal Spray 16 gm Bottle NASAL SCH (21:04)
[2019-09-19] MEDS: Pancrelipase DR 12000 1 CAP PO SCH ×2 (07:56→11:24)
[2019-09-19] MEDS: guaiFENesin ER 600 MG TAB PO SCH (07:57)
[2019-09-19] MEDS: Calcium Carbonate 600 MG + Vit D TAB PO SCH (07:57)
[2019-09-19 09:53] LABS: #Eosinphils 0.3 thou/uL (0.0-0.7); #Lymphocytes 1.8 thou/uL (1.20-3.40); #Monocytes 0.9 thou/uL (0.11-0.59); #Neutrophils 3.5 thou/uL (1.40-6.50); %Basophils 0.3 % (0.0-1.0); %Eosinophils 4.1 % (0.0-10.0); %Lymphocytes 27.5 % (21.0-51.0); %Monocytes 13.6 % (0.0-10.0); %Neutrophils 54.6 % (42.0-75.0); Hemoglobin 8.1 g/dL (12.0-16.0); Mean Corpuscular HGB CONC 33.4 g/dL (32.0-36.0); Mean Corpuscular Hemoglobin 32.5 pg (27.0-31.0); Mean Corpuscular Volume 97.1 fL (78.0-98.0); Platelet Count 206 thou/uL (130-400); RBC Distribution Width 12.2 % (11.5-14.5); Red Blood Cell (RBC) Count 2.49 mill/uL (4.20-5.40); White Blood Cell (WBC) Count 6.4 thou/uL (4.8-10.8)
[2019-09-19 11:47] VITALS: BP 147/71; TEMP 98.9
[2019-09-19] MEDS ORDERED: Fioricet 325/50/40 mg Tablet PO PRN (14:45)
--- NOTE | 2019-09-19 19:07 | DIS ---
DATE OF ADMISSION: 09/10/2019 DATE OF DISCHARGE: 09/19/2019 DISCHARGE DIAGNOSES: 1. Pancytopenia, resolved. 2. Nausea and vomiting, resolved. 3. Vancomycin-Resistant Enterococci urinary tract infection. 4. Rectal cancer history. 5. Hypertension. 6. Atrial fibrillation status post ablation. HOSPITAL COURSE: The patient is an 84-year-old female, who initially presented to the hospital with nausea and vomiting. She was found to be pancytopenic. She initially was on Zyvox for her VRE UTI. She had a stent to her left ureter. Initially, her Zyvox was stopped. She was seen by Infectious Disease and Urology. Her pancytopenia improved and she recovered without any intervention. She was also seen by Hematology Oncology, however no intervention was needed. Her urine culture was negative and she is going to be discharged home with no antibiotics. MEDICATIONS: She will be discharged to [place] with following medications: 1. Lipase 2 caps t.i.d. 2. Rosuvastatin 10 mg daily. 3. Potassium 10 mEq twice a day. 4. Diltiazem 120 mg daily. 5. Vitamin D 2000 units daily. 6. Multivitamin one p.o. daily. 7. Aspirin 325 daily, I will continue that. 8. Other calcium and vitamin D supplements one p.o. daily. PHYSICAL EXAMINATION: VITAL SIGNS: Temperature 98.9, pulse 68, respirations 16, 95% on room air, blood pressure 147/71. GENERAL: She is awake, alert, and oriented x3. Does not appear in distress. CV: S1 and S2 present. No murmurs, rubs, or gallops. ABDOMEN: Soft and nontender. Bowel sounds are present x2. Again, she will be to [place]. She will follow up with her primary. She is on aspirin, I will continue that. Her platelets have recovered very well to 206 on discharge. She is no longer pancytopenic and she has had a history of atrial fibrillation with ablation, so I am going to continue the aspirin. Job ID: [id number]
== END 2019-09-19 15:47 | disposition home or self-care (01) | DRG 809 ==
LOC: ERS 11:59 → OBSVTOIN 18:44 → 2SW 18:44 → SJJU 09-13 22:48
PROVIDERS: ADMIT Internal Medicine; ATTEND Internal Medicine
DX: D61.811 Other drug-induced pancytopenia (principal); N39.0 Urinary tract infection, site not specified; Z16.21 Resistance to vancomycin; N17.9 Acute kidney failure, unspecified; D63.1 Anemia in chronic kidney disease; I48.91 Unspecified atrial fibrillation; E78.5 Hyperlipidemia, unspecified; I12.9 Hypertensive chronic kidney disease with stage 1 through stage 4 chronic kidney disease, or unspecified chronic kidney disease; T36.8X5A Adverse effect of other systemic antibiotics, initial encounter; N18.9 Chronic kidney disease, unspecified; E78.00 Pure hypercholesterolemia, unspecified; B95.2 Enterococcus as the cause of diseases classified elsewhere; Z85.048 Personal history of other malignant neoplasm of rectum, rectosigmoid junction, and anus; Z79.01 Long term (current) use of anticoagulants; Z88.2 Allergy status to sulfonamides; Z88.8 Allergy status to other drugs, medicaments and biological substances; Z87.442 Personal history of urinary calculi; Z93.3 Colostomy status
CPT/HCPCS: 36415; 80048; 80053; 81001; 81003; 81015; 82607; 82746; 83690; 83880; 84484; 85007; 85025; 85027; 87086; 87324; 87449; 93005; 96361; 96374; 96375; J0690; J1885; J2405; J2550

== ENCOUNTER 2019-11-22 06:35 | Outpatient (CLI) | payer MEDICARE, OTHER ==
[2019-11-22 12:58] LABS: Hemoglobin 10.5 g/dL (12.0-16.0); Mean Corpuscular HGB CONC 32.2 g/dL (32.0-36.0); Mean Corpuscular Hemoglobin 32.2 pg (27.0-31.0); Mean Corpuscular Volume 99.9 fL (78.0-98.0); Mean Platelet Volume 7.8 fL (7.4-10.4); Platelet Count 210 thou/uL (130-400); RBC Distribution Width 13.8 % (11.5-14.5); Red Blood Cell (RBC) Count 3.25 mill/uL (4.20-5.40); White Blood Cell (WBC) Count 4.5 thou/uL (4.8-10.8)
[2019-11-22 13:17] LABS: Anion Gap 14 mmol/L (10-20); BUN (Urea Nitrogen) 37 mg/dL (9.8-20.1); Calc. Creatinine Clearance 0 mL/min (70-130); Calcium 9.8 mg/dL (7.8-10.44); Carbon Dioxide 14 mmol/L (23-31); Chloride 118 mmol/L (98-107); Estimated GFR-MDRD 19; Glucose 95 mg/dL (83-110); Potassium 3.9 mmol/L (3.5-5.1); Sodium 142 mmol/L (136-145)
[2019-11-22 17:22] LABS: SARS-CoV-2 MS2 Positive; SARS-CoV-2 N Gene Negative; SARS-CoV-2 S Gene Negative; SARS-CoV-2 orf1ab Negative
== END 2019-11-22 06:36 | disposition home or self-care (01) ==
LOC: LABBT 06:35
PROVIDERS: ATTEND Urology
DX: Z01.812 Encounter for preprocedural laboratory examination (principal); Z11.59 Encounter for screening for other viral diseases; N13.30 Unspecified hydronephrosis; Z96.0 Presence of urogenital implants
CPT/HCPCS: 80048; 85027; U0002; 87635; U0003

== ENCOUNTER 2019-11-24 06:54 | Day surgery (SDC) | payer MEDICARE, OTHER ==
[2019-11-22 10:55] VITALS: BMI 24.2
[2019-11-24] MEDS ORDERED: Iothalamate Meglumine 60% 30 ML VIAL FS ONE ×2 (08:56→09:48)
[2019-11-24] MEDS ORDERED: PROPOFOL 200 MG/20 ML VIAL ONE (10:52)
[2019-11-24] MEDS ORDERED: EPHEDRINE 25 MG/5 ML SYRINGE ONE (10:52)
[2019-11-24] MEDS ORDERED: Ondansetron PF 4 MG/2 ML Vial ONE (10:52)
--- NOTE | 2019-11-24 11:36 | OP ---
DATE OF PROCEDURE: 11/24/2019 PREOPERATIVE DIAGNOSES: Left hydro, left ureteral stent. POSTOPERATIVE DIAGNOSES: Left hydro, left ureteral stent with calcified left stent. PROCEDURES PERFORMED: Cysto; removal of left stent, partial; left retrograde; left stent replacement. ANESTHETIC: General with LMA. ESTIMATED BLOOD LOSS: Minimal. FINDINGS: She has left hydronephrosis. The upper two-thirds of the ureter are dilated and they tapered down at the pelvic inlet to a narrowed area. Her indwelling stent was calcified distally, it came out about a third [address] way. Its upper coil did however, the very tip of the upper coil did not completely open up. I do not know if she has enough calcification there or if it is calcification on the wall of the stent at the area where the ureter acutely narrows, which is not allowing us to remove the stent. Because of prior radiation to this area, the concern would be injuring or tearing the left ureter and for that reason, we elected to get another stent by it, which thankfully we were successful in doing. The plan will be to shockwave this stent in another week to 2 weeks and hopefully get it out. The urine was collected about 60 mL of dark brown cloudy urine from the left collecting system was sent for culture. Her preoperative urine culture was negative. Her white count was not elevated. DRAINS PLACED: A 4.8 x 24 double-J stent. The indwelling stent that she had was a 6-[place]. The distal third of it was cut and removed so that she has a segment of it in her bladder, but not coming out of her urethra. DESCRIPTION OF PROCEDURE: After obtaining written and verbal consent from the patient, after receiving 250 mg of Levaquin, she was taken to the operating suite. She was placed in a supine position on the treatment table. PlexiPulses were placed on her lower extremities and turned on. She was given a general anesthetic and oral obturator intubation, placed in the dorsal lithotomy position, sterilely prepped and draped. Fluoroscopy unit was used for imaging was positioned over her. Stent looked to be in good position, did not appear to be calcified. Cystoscopy was performed with a 22-Chadian sheath. This was well lubricated, passed under direct vision through the female urethra into the urinary bladder with the aid of a 30-degree lens and monitor. The bladder was filled and emptied number of times and emptied and then the distal end of double-J stent was grasped and brought out through the urethral meatus. There were some calcifications on it as it unfolded, they broke off. On trying to remove it further, it stopped and would not come out of the ureter, presumably from calcifications. We attempted to feed guidewire up it, it was occluded. After about a third of the way up, we could not get a wire to go through it using the stiff or the soft end of the wire and using also a Glidewire stiff end. We were able to place a cone-tipped catheter adjacent to it and shot contrast up that side which showed a dilated ureter above the pelvic inlet and did not show obvious evidence of stones in the ureter there. The most proximal end of the stent had just a slight angle to it, so it is possible there has a stone there, but I think most likely the area that is obstructing her is right where the ureter narrows at the pelvic inlet and there are probably enough calcifications on the stent in that region to not allow it to be removed. At this point, we went ahead and tried to pass a Pollack catheter and guidewire and Glidewire adjacent to the stent were unsuccessful, but we were able to cut the tip off a cone-tipped catheter and we were able to advance that adjacent to the indwelling stent and then feed an angled Glidewire up past the point of narrowing of the ureter and up into the renal pelvis. We actually used this to try to go adjacent to the stent a few times to see if that would loosen up any eggshell calcifications and allow the stent to remove, but it would not. We were able to then pass the cone-tipped catheter where the cone-tip cut off it all the way up into the renal pelvis. We removed the Glidewire and drained about 60 mL of brown colored cloudy urine which was sent for culture. We then replaced a guidewire through this cone-tipped catheter, removed the cone-tipped catheter and then brought in a 4.8 x 24 double-J stent and we were able to pass this over the guidewire and up into place with aid of a pusher, so its proximal end coiled in the renal pelvis and its distal end coiled in the bladder. At this point, she had the loop of the old stent hanging out of her urethral meatus, so we used endoscopic scissors to cut this, so it came out a couple of centimeters out of the ureteral orifice so that it would not be coming out of her urethra. At this point, the bladder was drained. The instruments were removed. She was taken out of the dorsal lithotomy position, awakened, extubated, and taken by stretcher to recovery room. Job ID: [id number]
--- NOTE | 2019-11-24 11:41 | RAD ---
RETROGRADE PYELOGRAM: Date: 11/24/2019 A total of 28 images are presented from fluoroscopy in OR during retrograde procedure. HISTORY: Imaging for retrograde and stent placement FINDINGS/IMPRESSION: These images show catheterization of left ureter and opacification of left collecting structures whic h shows dilatation of the proximal collecting structures. These images demonstrate placement of a lef t ureteral stent. POS: AGW
== END 2019-11-24 13:10 | disposition home or self-care (01) ==
LOC: SDC 06:54
PROVIDERS: ATTEND Urology
PROC: 0T778DZ Dilation of Left Ureter with Intraluminal Device, Via Natural or Artificial Opening Endoscopic (ICD-10-PCS; principal; 2019-11-24)
PROC: 0TP98DZ Removal of Intraluminal Device from Ureter, Via Natural or Artificial Opening Endoscopic (ICD-10-PCS; 2019-11-24)
DX: N13.30 Unspecified hydronephrosis (principal); T83.192A Other mechanical complication of indwelling ureteral stent, initial encounter; Z79.82 Long term (current) use of aspirin; Z79.899 Other long term (current) drug therapy; Z88.2 Allergy status to sulfonamides; Z91.048 Other nonmedicinal substance allergy status
CPT/HCPCS: 52332; 74420; 87086; C1758; C1769; J1956; J2405; J2704

== ENCOUNTER 2019-12-02 06:26 | Outpatient (CLI) | payer MEDICARE, OTHER ==
[2019-12-02 18:13] LABS: Platelet Count 204 thou/uL (130-400)
[2019-12-02 18:17] LABS: INR-International Normal Ratio 0.9; PTT 26.1 SEC (22.9-36.1); Prothrombin Time 12.4 sec (12.0-14.7)
[2019-12-02 18:33] LABS: EPI 142 SEC (67-199)
[2019-12-03 16:31] LABS: SARS-CoV-2 MS2 Positive; SARS-CoV-2 N Gene Negative; SARS-CoV-2 S Gene Negative; SARS-CoV-2 orf1ab Negative
== END 2019-12-02 06:27 | disposition home or self-care (01) ==
LOC: LABBT 06:26
PROVIDERS: ATTEND Urology
DX: Z01.812 Encounter for preprocedural laboratory examination (principal); Z11.59 Encounter for screening for other viral diseases; T83.192A Other mechanical complication of indwelling ureteral stent, initial encounter
CPT/HCPCS: 85576; 85610; 85730; U0003; 87635

== ENCOUNTER 2019-12-07 06:00 | Day surgery (SDC) | payer MEDICARE, OTHER ==
[2019-12-02 16:21] VITALS: BMI 23.4
[2019-12-07] MEDS ORDERED: Fentanyl 100 MCG/2 ML VIAL ONE (06:40)
[2019-12-07] MEDS ORDERED: Iopamidol 50 ML FS ONE (07:56)
--- NOTE | 2019-12-07 10:59 | OP ---
DATE OF PROCEDURE: 12/07/2019 PREOPERATIVE DIAGNOSES: Encrusted left ureteral stent, left hydronephrosis. POSTOPERATIVE DIAGNOSIS: Encrusted left ureteral stent, left hydronephrosis, plus left ureteral stone, small. PROCEDURES PERFORMED: Cystoscopy, removal of stent difficult, left flexible ureteroscopy with stone retrieval, and left stent replacement. ANESTHESIA: General. ESTIMATED BLOOD LOSS: Minimal. FINDINGS: The encrusted left ureteral stent was easier to remove today and could not be removed 2 weeks ago when we tried. We were able to remove it without having the shock wave. Left flexible ureteroscopy showed that the lower third of the left ureter is narrowed compared to the dilated proximal two-thirds. There is a rather abrupt change in the caliber at about the pelvic inlet. There was no evidence of any stones in the distal ureter nor was there any evidence of any tumor in the distal ureter. 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 A small 3 mm stone was found in the left mid ureter, probably a centimeter to above where the ureter narrowed down. I do not think this was causing obstruction at this point, although it is possible as we went up with the ureteroscope and it could have been pushed by the irrigating fluid a little bit more proximal than it where it had been. This was removed with a Nitinol basket. It was not sent as we sent stone fragments on it before. It was not a dense stone. It could have been a stone that came off the calcified ureteral stent that was a possibility, although it may have also just been a stone fragment. She has had stones before that had migrated down the ureter. The proximal ureter did not show any abnormality, except hydronephrosis. She does have some stones in the kidney. In the very lower pole of the kidney, we did not try to treat these at this time as she has had enough issues with stents and stones, and these I think her ones that are unlikely to give her trouble. We did send the urine off for culture from the left kidney once we get by it with our dual-lumen catheter. DESCRIPTION OF PROCEDURE: After obtaining written and verbal consent from the patient, after receiving some IV Levaquin, she was taken to the operating suite. She was placed in a supine position on the treatment table. PlexiPulses were placed on her lower extremities and turned on. She was given a general anesthetic and oral obturator intubation. She was placed in gently and then modified dorsal lithotomy position and sterilely prepped and draped. C-arm from the ESWL unit was brought in and placed over the proximal end of the calcified left double-J stent. We then went ahead and performed cystoscopy with a 22-Bahamian sheath. The bladder was filled and emptied a couple of times as it was examined. There was debris on the floor of the bladder including a number of small stone fragments that probably had come off the calcified stent. We went ahead and grasped the stent with a pair of flexible grasping forceps, and we were able to remove it at this time without a significant amount of difficulty in terms of pulling on it like we tried to do a couple of weeks ago when we were unsuccessful. For this reason, obviously we did not have to shockwave it. My thoughts were that these stone fragments were ones that have come off the proximal end of that coil since we were attempted to remove it 2 weeks ago. This stent was discarded. We then went ahead and removed the other stent that we had placed 2 weeks ago. It had already calcified to some extent and the lumen had already occluded. We then fed a Pollack catheter up the left ureter, injected contrast in a retrograde manner. It showed the distal ureter to be somewhat narrowed and then proximal dilatation. It did have some filling defects in the proximal mid and proximal ureter. It was unclear if these were stones or debris. For this reason, we fed a guidewire up this side. It went up easily into the renal pelvis. We then went ahead and brought in a dual-lumen catheter, fed this over this guidewire and then placed the dual-lumen catheter up to get by the lower third of the left ureter, which was a fairly easy process today, which was not in the case at other attempts. We then fed a second guidewire up this side, removing the dual-lumen catheter. We then brought in a flexible ureteroscope, fed it over one of our guidewires up in the region of the renal pelvis. There was some old blood in the renal pelvis, did not look at all the collecting system. Visibility was not great with this. We may need to try and look and see what was going on in the ureter. We then very slowly brought this down through the course of the ureter as we got down to the junction of the proximal two-thirds and the distal one-third. We found a small stone fragment just above some area of edema that not at all appeared suspicious for cancer. We were able to basket this stone and it actually crumbled some as we basketed it, but we were able to get the pieces of this out in one single basket and remove them. We then repeated the process by placing a guidewire up again over the dual-lumen catheter and going back up over one of our guidewires with a flexible scope and then looking in this region. We found no other stones or stone fragments. We looked at the distal ureter in its entirety actually before we did the basketing, and then, again at the end of the basketing, again there was no evidence of cancer and her intrinsic abnormality in the left ureter. My suspicion was that she probably had some radiation damage to this left ureter. At this point, we backloaded the single remaining guidewire through our cystoscope, passed the 5-Bahamian Pollack catheter up, injected some contrast to fill out the collecting system. We then replaced the guidewire. We went ahead and put a 7-Bahamian stent in. I think having 2 stents across this was what enabled us to get this 1 stent out relatively easy today and also allowed us to do ureteroscopy, which we had failed that attempts earlier this year. I will leave the 7-Bahamian in for probably a week to 10 days and then take it out in the office and the string was not attached for this reason. The stent was placed over the guidewire and pushed up to place with aid of a pusher, so its proximal end coiled in the upper calyceal system of the left kidney and its distal end coiled in the bladder. Bladder was drained. She was awakened, extubated, and taken by stretcher to the recovery room. Job ID: [id number]
[2019-12-07] MEDS ORDERED: EPHEDRINE 25 MG/5 ML SYRINGE ONE (16:11)
[2019-12-07] MEDS ORDERED: Ondansetron PF 4 MG/2 ML Vial ONE (16:11)
[2019-12-07] MEDS ORDERED: PROPOFOL 200 MG/20 ML VIAL ONE (16:11)
[2019-12-07] MEDS ORDERED: PHENYLEPHRINE-NS 100 MCG/ML 10 ML SYRINGE ONE (16:11)
[2019-12-07] MEDS ORDERED: Lidocaine 1% PF 5 ML VIAL ONE (16:11)
== END 2019-12-07 11:30 | disposition home or self-care (01) ==
LOC: SDC 06:00
PROVIDERS: ATTEND Urology
PROC: 0TC48ZZ Extirpation of Matter from Left Kidney Pelvis, Via Natural or Artificial Opening Endoscopic (ICD-10-PCS; principal; 2019-12-07)
PROC: 0TC78ZZ Extirpation of Matter from Left Ureter, Via Natural or Artificial Opening Endoscopic (ICD-10-PCS; 2019-12-07)
PROC: 0T778DZ Dilation of Left Ureter with Intraluminal Device, Via Natural or Artificial Opening Endoscopic (ICD-10-PCS; 2019-12-07)
DX: N13.2 Hydronephrosis with renal and ureteral calculous obstruction (principal); Z79.899 Other long term (current) drug therapy; Z88.2 Allergy status to sulfonamides; Z91.048 Other nonmedicinal substance allergy status
CPT/HCPCS: 87086; C1758; J1956; J2001; J2405; J2704; J3010; Q9967

== ENCOUNTER 2020-01-12 20:47 | Inpatient (IN) | payer MEDICARE, OTHER ==
[2020-01-12 21:18] LABS: #Eosinphils 0.1 thou/uL (0.0-0.7); #Lymphocytes 1.6 thou/uL (1.20-3.40); #Monocytes 0.5 thou/uL (0.11-0.59); %Basophils 1.1 % (0.0-1.0); %Eosinophils 2.6 % (0.0-10.0); %Lymphocytes 38.2 % (21.0-51.0); %Monocytes 11.5 % (0.0-10.0); %Neutrophils 46.6 % (42.0-75.0); Hemoglobin 9.1 g/dL (12.0-16.0); Mean Corpuscular HGB CONC 34.6 g/dL (32.0-36.0); Mean Corpuscular Hemoglobin 32.5 pg (27.0-31.0); Mean Platelet Volume 8.3 fL (7.4-10.4); Platelet Count 158 thou/uL (130-400); RBC Distribution Width 13.5 % (11.5-14.5); Red Blood Cell (RBC) Count 2.81 mill/uL (4.20-5.40); White Blood Cell (WBC) Count 4.2 thou/uL (4.8-10.8)
[2020-01-12 21:42] LABS: ALT (SGPT) 17 U/L (8-55); AST (SGOT) 22 U/L (5-34); Albumin 4.2 g/dL (3.4-4.8); Alkaline Phosphatase 70 U/L (40-110); Anion Gap 13 mmol/L (10-20); BUN (Urea Nitrogen) 58 mg/dL (9.8-20.1); Bilirubin, Total 0.3 mg/dL (0.2-1.2); Calc. Creatinine Clearance 0 mL/min (70-130); Calcium 8.3 mg/dL (7.8-10.44); Chloride 123 mmol/L (98-107); Estimated GFR-MDRD 12; Globulin 2.6 g/dL (2.4-3.5); Glucose 102 mg/dL (83-110); Potassium 3.8 mmol/L (3.5-5.1); Protein, Total 6.8 g/dL (6.0-8.3); Sodium 141 mmol/L (136-145)
[2020-01-12 21:48] LABS: Carbon Dioxide 9 mmol/L (23-31)
[2020-01-12 21:50] LABS: Bilirubin Negative (Negative); Blood, Urine 1+ (Negative); Clarity Clear (Clear); Glucose, Urine (Dipstick) Normal (Negative); Ketone, Urine Negative (Negative); Leukocyte Negative Leu/uL (Negative); Nitrite Negative (Negative); Protein, Urine (Dipstick) 20 mg/dL (Neg-Trace); RBC/HPF None Seen HPF (0-3); Specific Gravity, Urine 1.006 (1.002-1.036); Squamous Epithelial 0-3 HPF (0-3); Urobilinogen Normal mg/dL (Less than 2); WBC/HPF 0-3 HPF (0-3); pH, Urine 5.5 (5.0-9.0)
[2020-01-12 21:56] LABS: Bacteria/HPF None Seen HPF (None Seen)
--- NOTE | 2020-01-12 23:17 | PDOC.HHP ---
Hospitalist HPI - History of Present Illness Weakness History of Present Illness: Patient is an 84F with PMH CKD who presents to ED for weakness and deconditioning x several days. Has been unable to ambulate really, which is below baseline. She has some baseline CKD and sees Dr Poole of nephrology for this. She admits to dysuria but is able to urinate on command adequately she thinks. No history of retention. Denies fever, chest pain, shortness of breath, nausea, vomiting, metallic taste. She has a L ureteral stent with recent replacement by Dr Nelson on 12/07/19, denies flank pain or hematuria. In ED, Cr signifcantly higher than previous, 3.68 (was recently as low as 1.9). CO2 was 9 , BUN 58, patient admitted for workup of renal failure. Hospitalist ROS - Review of Systems Constitutional: reports: weakness, malaise. denies: fever, chills, sweats, other Eyes: denies: pain, vision change, conjunctivae inflammation, eyelid inflammation, redness, other ENT: denies: ear pain, ear discharge, nose pain, nose discharge, nose congestion , mouth pain, mouth swelling, throat pain, throat swelling, other Respiratory: denies: cough, dry, shortness of breath, hemoptysis, SOB with excertion, pleuritic pain, sputum, wheezing, other Cardiovascular: denies: chest pain, palpitations, orthopnea, paroxysmal noc. dyspnea, edema, light headedness, other Gastrointestinal: denies: nausea, vomiting, abdominal pain, diarrhea, constipation, melena, hematochezia, other Genitourinary: denies: dysuria, frequency, incontinence, hematuria, retention, other Musculoskeletal: denies: neck pain, shoulder pain, arm pain, back pain, hand pain, leg pain, foot pain, other Skin: denies: rash, lesions, salbador, bruising, other Neurological: denies: weakness, numbness, incoordination, change in speech, confusion, seizures, other Other: no focal weakness or numbness All other systems reviewed; all pertinent +/- noted in HPI/Subj Hospitalist History - Past Medical History Other Medical History: Flu vaccine up to date, Tetanus not up to date, Pneumococcal vaccine up to date , Pneumococcal vaccine up to date, Notes: colorectal cancer. irregular hear rhythm. kidney stones. - Past Surgical History Other Surgical History: 3 cardiac ablations. rt ankle sx. colostomy/adhesions 05/06/19. ureter stent. - Family History Other Family History: reviewed, no relevant FH - Social History Smoking Status: Never smoker Alcohol: reports: None Drugs: reports: none - Exam General Appearance: NAD, awake alert Eye: PERRL, anicteric sclera ENT: normocephalic atraumatic, no oropharyngeal lesions, moist mucosa Neck: supple, symmetric, no JVD, no thyromegaly, no lymphadenopathy, no carotid bruit Heart: RRR, no murmur, no gallops, no rubs, normal peripheral pulses Respiratory: CTAB, no wheezes, no rales, no ronchi, normal chest expansion, no tachypnea, normal percussion Gastrointestinal: soft, non-tender, non-distended, normal bowel sounds, no palpable masses, no hepatomegaly, no splenomegaly, no bruit Extremities: no cyanosis, no clubbing, no edema Skin: normal turgor, no lesions, no rashes Neurological: cranial nerve grossly intact, normal sensation to touch, no weakness, no focal deficits, no new deficit Musculoskeletal: normal tone, normal strength, no muscle wasting Psychiatric: normal affect, normal behavior, A&O x 3 Hospitalist Results - Labs Result Diagrams: 01/12/20 21:07 01/12/20 21:07 Lab results: WBC 4.2 thou/uL (4.8-10.8) L 01/12/20 21:07 Hgb 9.1 g/dL (12.0-16.0) L 01/12/20 21:07 Hct 26.4 % (36.0-47.0) L 01/12/20 21:07 MCV 94.0 fL (78.0-98.0) 01/12/20 21:07 Plt Count 158 thou/uL (130-400) 01/12/20 21:07 Neutrophils % 46.6 % (42.0-75.0) 01/12/20 21:07 Sodium 141 mmol/L (136-145) 01/12/20 21:07 Potassium 3.8 mmol/L (3.5-5.1) 01/12/20 21:07 Chloride 123 mmol/L (98-107) H 01/12/20 21:07 Carbon Dioxide 9 mmol/L (23-31) L* 01/12/20 21:07 BUN 58 mg/dL (9.8-20.1) H 01/12/20 21:07 Creatinine 3.68 mg/dL (0.6-1.1) H 01/12/20 21:07 Glucose 102 mg/dL (83-110) 01/12/20 21:07 Lactic Acid 0.8 mmol/L (0.5-2.2) 01/12/20 21:07 Calcium 8.3 mg/dL (7.8-10.44) 01/12/20 21:07 Total Bilirubin 0.3 mg/dL (0.2-1.2) 01/12/20 21:07 AST 22 U/L (5-34) 01/12/20 21:07 ALT 17 U/L (8-55) 01/12/20 21:07 Alkaline Phosphatase 70 U/L (40-110) 01/12/20 21:07 Serum Total Protein 6.8 g/dL (6.0-8.3) 01/12/20 21:07 Albumin 4.2 g/dL (3.4-4.8) 01/12/20 21:07 Urine Ketones Negative mg/dL (Negative) 01/12/20 21:16 Urine Blood 1+ (Negative) A 01/12/20 21:16 Urine Nitrite Negative (Negative) 01/12/20 21:16 Ur Leukocyte Esterase Negative Buzz/uL (Negative) 01/12/20 21:16 Urine RBC None Seen HPF (0-3) 01/12/20 21:16 Urine WBC 0-3 HPF (0-3) 01/12/20 21:16 Ur Squamous Epith Cells 0-3 HPF (0-3) 01/12/20 21:16 Urine Bacteria None Seen HPF (None Seen) 01/12/20 21:16 Hospitalist H&P A/P - Plan Plan: Patient is an 84F with PMH CKD who presents to ED for weakness and deconditioning x several day. # acute kidney injury with chronic kidney disease - now in acute renal failure, with metabolic acidosis and likely causing her metabolic encephalopathy, some dysuria but no UTI - admit to telemetry - consult nephrology - start bicarbonate drip in D5 - I/Os - bladder scan, nayak if needed # debility # metabolic encephalopathy # metabolic acidosis - treat as above, PT/OT consults to screen for rehab needs, also consult her urologist Dr Nelson if needed # history of colorectal cancer - ostomy functioning, monitor # irregular heart rhythm # history of kidney stones # anemia - possibly anemia of renal disease, defer to nephrology # DVT ppx - lovenox renal dosing and scd # GI ppx - H2RA
[2020-01-13] MEDS ORDERED: Guaifenesin DM 100-10/5 ML UDCUP PO PRN (00:03)
[2020-01-13] MEDS ORDERED: HYDROcodone/Acetaminophen 5/325 mg Tablet PO PRN (00:03)
[2020-01-13] MEDS ORDERED: hydrALAZINE 20 MG/ML VIAL SLOW IVP PRN (00:03)
[2020-01-13] MEDS ORDERED: Promethazine HCl 12.5 MG in Sodium Chloride 0.9% 50 ML IVPB PRN (00:03)
[2020-01-13] MEDS ORDERED: Ondansetron PF 4 MG/2 ML Vial IVP PRN (00:03)
[2020-01-13] MEDS ORDERED: Labetalol HCl 100 MG/20 ML VIAL SLOW IVP PRN (00:03)
[2020-01-13] MEDS ORDERED: Acetaminophen 325 MG TAB PO PRN (00:03)
[2020-01-13] MEDS ORDERED: cloNIDine 0.1 MG TAB PO PRN (00:03)
[2020-01-13] MEDS ORDERED: Sodium Bicarbonate 150 MEQ in Dextrose 5% in Water 1,000 ML IV SCH (01:00)
[2020-01-13 02:00] VITALS: BMI 23.6
[2020-01-13 05:53] LABS: #Basophils 0.1 thou/uL (0.0-0.2); #Eosinphils 0.1 thou/uL (0.0-0.7); #Lymphocytes 1.4 thou/uL (1.20-3.40); #Monocytes 0.4 thou/uL (0.11-0.59); #Neutrophils 1.8 thou/uL (1.40-6.50); %Basophils 1.5 % (0.0-1.0); %Eosinophils 3.1 % (0.0-10.0); %Monocytes 10.8 % (0.0-10.0); %Neutrophils 47.7 % (42.0-75.0); Hemoglobin 8.3 g/dL (12.0-16.0); Mean Corpuscular Hemoglobin 31.4 pg (27.0-31.0); Mean Platelet Volume 8.3 fL (7.4-10.4); Platelet Count 138 thou/uL (130-400); RBC Distribution Width 13.5 % (11.5-14.5); Red Blood Cell (RBC) Count 2.64 mill/uL (4.20-5.40); White Blood Cell (WBC) Count 3.8 thou/uL (4.8-10.8)
[2020-01-13 06:21] LABS: BUN (Urea Nitrogen) 52 mg/dL (9.8-20.1); Calc. Creatinine Clearance 12 mL/min (70-130); Calcium 7.7 mg/dL (7.8-10.44); Estimated GFR-MDRD 13; Glucose 122 mg/dL (83-110); Magnesium 1.9 mg/dL (1.6-2.6); Potassium 3.9 mmol/L (3.5-5.1); Sodium 145 mmol/L (136-145)
[2020-01-13 06:24] LABS: Carbon Dioxide Less than 8 mmol/L (23-31); Chloride 127 mmol/L (98-107)
[2020-01-13] MEDS ORDERED: Heparin 10,000 UNITS/ 10 ML VIAL FS PRN ×2 (08:58→09:00)
[2020-01-13] MEDS: Polyethylene Glycol 3350 17 GM Packet PO SCH (09:00)
[2020-01-13] MEDS ORDERED: Sodium Chloride 0.9% 100 ML BAG IVPB PRN (09:00)
[2020-01-13] MEDS ORDERED: Tuberculin PPD 0.1 ML VIAL I-DERMAL SCH (09:00)
[2020-01-13] MEDS: Enoxaparin Sodium 30 MG/0.3 ML SYRINGE SC SCH (09:00)
[2020-01-13] MEDS ORDERED: CEFAZOLIN 2 GM in Premix Bag 1 BAG IVPB SCH ×3 (09:15→14:00)
[2020-01-13 09:47] LABS: HBSAB Concentration 0.44 mIU/mL; HIV (1/2) Antibody/Antigen Non-Reactive (NonReactive); HIV 1/2 INDEX 0.29 S/CO (<1.00); Hep B Surf AB Non-Reactive (NonReactive); Hep C IgG Ab Non-Reactive (NonReactive); Hep C Index 0.17 S/CO (0-0.79)
[2020-01-13] MEDS ORDERED: Heparin 10,000 UNITS/ 10 ML VIAL ONE (09:51)
[2020-01-13] MEDS ORDERED: Lidocaine 1% PF 5 ML VIAL ONE (10:56)
[2020-01-13] MEDS ORDERED: PROPOFOL 200 MG/20 ML VIAL ONE (10:56)
[2020-01-13] MEDS ORDERED: EPHEDRINE 25 MG/5 ML SYRINGE ONE (10:56)
[2020-01-13] MEDS ORDERED: traMADol HCl 50 MG TAB PO PRN ×2 (11:01→11:22)
[2020-01-13] MEDS ORDERED: Acetaminophen 500 MG TAB PO PRN (11:01)
[2020-01-13] MEDS ORDERED: Fentanyl 100 MCG/2 ML VIAL ONE (12:04)
[2020-01-13] MEDS ORDERED: Lidocaine 1% w/Epinephrine 1:100K 20 ML VIAL ONE (12:11)
[2020-01-13] MEDS ORDERED: Heparin 10,000 UNITS/1 ML VIAL ONE (12:11)
[2020-01-13] MEDS ORDERED: Sodium Chloride 0.9% 30 ML ONE (12:11)
[2020-01-13] MEDS ORDERED: Bupivacaine PF 0.5% 30 ML VIAL ONE (12:11)
--- NOTE | 2020-01-13 12:13 | CON ---
DATE OF CONSULTATION: HISTORY OF PRESENT ILLNESS: Kristie Moss is an 84-year-old female with chronic kidney disease, end-stage renal disease in need for dialysis access. The patient has a right AC IV. Dr. Simpson has asked me to establish dialysis access. She is acidotic and chloride is markedly elevated. She has a left ureteral stent placed by Dr. Bnenett in the past. She was status post January 06, 2013. Dr. Mas placed I and D of the perineal wound for nonhealing wound after an APR. On June 10, Dr. Mas performed laparotomy for adhesiolysis. In November 2012, the patient had a locally invasive rectal cancer and a MediPort was placed right IJ. On February 27, 2011, the patient underwent proctocolectomy, abdominoperineal approach with end-colostomy, initially undergoing an APR. The patient had infection in his perineum, underwent incision and drainage in March 2011 and in September 2011, underwent parastomal hernia repair with mesh by Dr. Mas. 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 Perineal biopsy in 2012 for nonhealing wound was just inflammation without malignancy. The patient has suffered progressive renal failure after undergoing APR chemotherapy and radiation therapy. BUN is 52, creatinine 3.36, GFR 13. ALLERGIES: SULFA. HABITS: Tobacco, none. Alcohol, none. MEDICATIONS: At home, 1. Crestor. 2. Klor-Con 10. 3. MiraLAX. 4. Centrum. 5. Ferrous sulfate. 6. Diltiazem. 7. Aspirin. 8. Calcium carbonate. PAST SURGICAL HISTORY: As noted above. MediPort, APR, colostomy, parastomal hernia repair, exploratory laparotomy, adhesiolysis, left ureteral stent. The patient denies any past cardiac history. She did have cardiac ablations in the past, right ankle surgery in addition to above. REVIEW OF SYSTEMS: Ten-point noncontributory. Multiple colonoscopies over the years. SOCIAL HISTORY: The patient lives with her daughter in [place]. Her is . FAMILY HISTORY: Otherwise noncontributory. PHYSICAL EXAMINATION: VITAL SIGNS: Height 5 foot 1 inch, 224 pounds, BMI 23. Temperature 98.4, heart rate 63, blood pressure 135/76. HEAD, EARS, EYES, NOSE, AND THROAT: Unremarkable. NECK: Carotids palpable. No bruits. CARDIAC: Regular rate and rhythm without murmur or gallop. ABDOMEN: Soft and nontender. Colostomy present. Incisional hernia around the umbilical area, 2 cm defect, reducible. EXTREMITIES: Unremarkable. Palpable pulses. Antecubital IV right. NEUROLOGIC: Intact. LABORATORY DATA: Sodium 145, potassium 3.9, chloride 127, carbon dioxide less than 8, anion gap too accurate to measure, BUN 52, creatinine 3.36, GFR 13, glucose 122, hemoglobin 8.3. ASSESSMENT AND PLAN: 1. End-stage renal disease, in need for dialysis access. Unfortunately, she has right antecubital IV. She has ultrasound vein mapping results which are pending. She is too acidotic for anything more than hemodialysis catheter and a central line today. We will plan placement of more definitive dialysis access next week. We will get rid of her antecubital IV as soon as possible. Risks and benefits of the planned procedures discussed. Questions answered. 2. Asymptomatic cholelithiasis. 3. Incisional hernia. 4. Permanent colostomy. 5. History of radiation chemotherapy. Left ureteral stent present placed by Dr. Bennett. Job ID: [id number]
--- NOTE | 2020-01-13 12:27 | ULT ---
BILATERAL UPPER EXTREMITY VENOUS DOPPLER ULTRASOUND FOR AV FISTULOUS PLACEMENT: HISTORY: Chronic renal failure. FINDINGS: RIGHT UPPER EXTREMITY: The right cephalic vein measures 1.8 mm in the proximal arm, 1.9 mm in the mid arm, 2.2 mm in the dis jason arm, 2.8 mm in the cubital fossa, 1.6 mm in the proximal forearm, 1.4 mm in the mid forearm, and 0.8 mm in the distal forearm. The right basilic vein measures 4.7 mm in the proximal arm, 4.3 mm in the mid arm, 3.8 mm in the dist al arm, 3.3 mm in the cubital fossa, 1.6 mm in the proximal forearm, 1.1 mm in the mid forearm, and 1 .0 mm in the distal forearm. The right brachial artery 3.3 mm, radial artery 1.9 mm, and ulnar artery 0.8 mm. LEFT UPPER EXTREMITY: The left cephalic vein measures 1.7 mm in the proximal arm, 1 mm in the mid arm, 1.6 mm in the distal arm, 1.5 mm in the cubital fossa, 1.5 mm in the proximal forearm, 1.6 mm in the mid forearm, and 1.2 mm in the distal forearm. The left basilic vein measures 5 mm in the proximal arm, 3.3 mm in the mid arm, 2.2 mm in the distal arm, 1.8 mm in the cubital fossa, 0.9 mm in the proximal forearm, 0.6 mm in the mid forearm, and 0.6 mm in the distal forearm. The left brachial artery measures 3.2 mm, radial artery 1.5 mm, and ulnar artery 1.1 mm. POS: EMANUEL
--- NOTE | 2020-01-13 14:27 | RAD ---
EXAM: CHEST ONE VIEW PORTABLE: 01/13/20 HISTORY: Post line placement. COMPARISON: 05/06/19. FINDINGS: Right sided dual lumen venous access catheter. Left jugular venous catheter with tip in the superior vena cava. No pneumothorax or pleural effusion or other acute process. IMPRESSION: Unremarkable chest. Line placement as above. POS: AH
--- NOTE | 2020-01-13 16:10 | OP ---
DATE OF PROCEDURE: 01/13/2020 PREOPERATIVE DIAGNOSES: 1. End-stage renal disease. 2. Poor IV access. 3. History of abdominoperineal resection. 4. Permanent colostomy with umbilical hernia. 5. Has had a right internal jugular MediPort for many years, that has not been used. POSTOPERATIVE DIAGNOSES: 1. End-stage renal disease. 2. Poor IV access. 3. History of abdominoperineal resection. 4. Permanent colostomy with umbilical hernia. 5. Has had a right internal jugular MediPort for many years, that has not been used. PROCEDURES PERFORMED: 1. Removal of right internal jugular MediPort. 2. Placement of right internal jugular hemodialysis catheter, requiring use of MediPort catheter access in the superior vena cava and access was very difficult despite that. 3. Left internal jugular central line. 4. Removal of MediPort. ANESTHESIA: Intravenous sedation and local with 0.5% Marcaine 30 mL, mixed with 1% Xylocaine with epinephrine 20 mL. DESCRIPTION OF PROCEDURE: The patient was taken to the operating room where under intravenous sedation, neck and chest were prepared with ChloraPrep and draped in routine fashion. Local anesthetic mixture was infiltrated into the skin and subcutaneous tissue about the operative site. Using ultrasound guidance, I cannulated the right internal jugular vein, but the J-wire would not thread due to a senescent MediPort catheter that had been there for many years, occluding the outflow. I then cut down over the catheter over the right side of the neck and dissected the catheter free, transected it, controlling catheter with a hemostat, and accessed the catheter with a J-wire, removing the J-wire. I then placed a smaller dilator to the hemodialysis catheter over the wire, but I had difficulty passing it. I used the dilator from the central line kit and it would not pass. I used a larger dilator and it would only partially pass. I used the dilator and Peel-Away sheath over the J-wire, gaining access to the superior vena cava, but it would not pass fully. I then removed the J-wire and the dilator and placed the hemodialysis catheter, which had been tunneled through a new exit site over the right chest. The fabric cuff beneath the skin exit site over the right chest and catheter placed with the Peel-Away sheath and the Peel-Away sheath removed. This was all done under fluoroscopy. Catheter tip was noted to be in good position. Each port aspirated blood, flushed with saline solution and then heparinized saline solution with 1000 units of heparin per mL, indicating volume in the port. Catheter secured with 3-0 nylon suture. The incision was made over the old MediPort over the right chest and it was removed along with the remaining catheter. Good hemostasis noted. Skin and subcutaneous tissue were approximated with interrupted subdermal 4-0 Monocryl and [place] glue applied. Using ultrasound guidance, the left internal jugular vein was cannulated. J-wire threaded, trocar catheter removed. Skin site enlarged sharply. Seldinger technique used to place a triple-lumen catheter, removed the J-wire, securing the catheter with 3-0 nylon suture. Sterile dressing applied. Each port aspirated blood, flushed with saline solution. Final fluoroscopic images revealed good line placement. Job ID: [id number]
[2020-01-13 16:18] LABS: HBSAg Index 0.17 S/CO (0-0.99); Hep B Surf Ag Non-Reactive S/CO (NonReactive)
--- NOTE | 2020-01-13 18:48 | PDOC.HOSPP ---
- Subjective Encounter Date: 01/13/20 Encounter Time: 17:15 Subjective: f/u for SAURABH/CKD, weakness/deconditioning and metabolic encephalopathy. s/p removal of old Mediport and placement of R tunneled HD catheter. No new complaints and receiving HD. - Objective Vital Signs & Weight: Vital Signs (12 hours) Temp Pulse Resp BP Pulse Ox 01/13/20 16:10 100 01/13/20 08:00 100 01/13/20 07:13 98.4 F 63 14 135/76 100 Weight Admit Weight 124 lb 14.4 oz Weight 124 lb 14.4 oz I&O: 01/12/20 01/13/20 01/14/20 06:59 06:59 06:59 Intake Total 495 400 Output Total 0 Balance 495 400 Result Diagrams: 01/13/20 05:22 01/13/20 05:22 Additional Labs: Laboratory Tests 01/12/20 01/12/20 01/12/20 21:07 21:07 21:07 Hgb 9.1 L Chloride 123 H Carbon Dioxide 9 L* Creatinine 3.68 H Lactic Acid 0.8 Hep Bs Antigen Hep Bs Antibody Hepatitis C Antibody HIV 1&2 Antigen & Ab 01/13/20 01/13/20 08:58 Unknown Hgb Chloride Carbon Dioxide Creatinine Lactic Acid Hep Bs Antigen Non-Reactive Hep Bs Antibody Non-Reactive Hepatitis C Antibody Non-Reactive HIV 1&2 Antigen & Ab Non-Reactive Radiology Reviewed by me: Yes (PCXR - no acute process, lines in place) Hospitalist ROS - Medication Medications: Active Medications Generic Name Dose Route Start Last Admin Trade Name Freq PRN Reason Stop Dose Admin Enoxaparin Sodium 30 mg 01/13/20 09:00 01/13/20 09:00 Lovenox SC Not Given 0900 JAM Pantoprazole Sodium 40 mg 01/13/20 09:00 01/13/20 09:00 Protonix PO Not Given DAILY JAM Polyethylene Glycol 17 gm 01/13/20 09:00 01/13/20 09:00 Miralax PO Not Given DAILY JAM - Exam General Appearance: NAD, awake alert Eye: PERRL, anicteric sclera ENT: normocephalic atraumatic, no oropharyngeal lesions Neck: supple, symmetric, no JVD, no thyromegaly, no lymphadenopathy Neck - other findings: R tunneled HD catheter, L IJ CVC in place Heart: RRR, no murmur, no gallops, no rubs, normal peripheral pulses Heart - other findings: S1, S2 Respiratory: CTAB, no wheezes, no rales, no ronchi, normal chest expansion Gastrointestinal: soft, non-tender, non-distended, normal bowel sounds, no palpable masses Gastrointestinal - other findings: + colostomy in place Extremities: no cyanosis, 1+ LE edema Skin: normal turgor, no lesions Neurological: cranial nerve grossly intact, no new deficit Musculoskeletal: normal tone, generalized weakness Psychiatric: normal affect, oriented to person, oriented to place, somnolent Hosp A/P (1) Acute kidney injury superimposed on CKD Code(s): N17.9 - ACUTE KIDNEY FAILURE, UNSPECIFIED; N18.9 - CHRONIC KIDNEY DISEASE, UNSPECIFIED Status: Acute Plan: Continue HD per Renal service, serial creatinine monitoring, avoid nephrotoxic meds (2) Metabolic encephalopathy Code(s): G93.41 - METABOLIC ENCEPHALOPATHY Status: Acute Plan: Likely uremic influence, improved with HD (3) Anemia in CKD (chronic kidney disease) Code(s): N18.9 - CHRONIC KIDNEY DISEASE, UNSPECIFIED; D63.1 - ANEMIA IN CHRONIC KIDNEY DISEASE Status: Chronic Plan: Continue serial monitoring, no evidence of acute blood loss (4) Rectal cancer Code(s): C20 - MALIGNANT NEOPLASM OF RECTUM Status: Chronic Plan: s/p surgical resection and colostomy with chemotx, supportive mgmt - Plan continue antibiotics, PT/OT, social service manager, incentive spirometry, DVT proph w/ SCDs Consults: Palliative Care Stable currently Continue HD per Renal service Continue Ancef PT/OT for mobilization Palliative care for goals of care COVID rule out pending AM lab: BMP, CBC, Mg++
[2020-01-14 04:31] LABS: #Eosinphils 0.1 thou/uL (0.0-0.7); #Lymphocytes 1.2 thou/uL (1.20-3.40); #Monocytes 0.5 thou/uL (0.11-0.59); #Neutrophils 2.9 thou/uL (1.40-6.50); %Basophils 0.7 % (0.0-1.0); %Eosinophils 2.3 % (0.0-10.0); %Lymphocytes 25.7 % (21.0-51.0); %Monocytes 11.1 % (0.0-10.0); %Neutrophils 60.2 % (42.0-75.0); Hemoglobin 7.7 g/dL (12.0-16.0); Mean Corpuscular Hemoglobin 31.5 pg (27.0-31.0); Mean Corpuscular Volume 92.5 fL (78.0-98.0); Mean Platelet Volume 8.2 fL (7.4-10.4); Platelet Count 131 thou/uL (130-400); RBC Distribution Width 13.2 % (11.5-14.5); Red Blood Cell (RBC) Count 2.45 mill/uL (4.20-5.40); White Blood Cell (WBC) Count 4.8 thou/uL (4.8-10.8)
[2020-01-14 05:01] LABS: Anion Gap 13 mmol/L (10-20); BUN (Urea Nitrogen) 37 mg/dL (9.8-20.1); Calc. Creatinine Clearance 15 mL/min (70-130); Calcium 7.8 mg/dL (7.8-10.44); Carbon Dioxide 15 mmol/L (23-31); Chloride 120 mmol/L (98-107); Estimated GFR-MDRD 17; Glucose 104 mg/dL (83-110); Magnesium 1.7 mg/dL (1.6-2.6); Sodium 145 mmol/L (136-145)
[2020-01-14 05:24] LABS: Potassium 2.9 mmol/L (3.5-5.1)
[2020-01-14] MEDS ORDERED: Potassium Chloride 40 MEQ in Premix Bag 1 BAG IVPB SCH (06:30)
--- NOTE | 2020-01-14 08:25 | PDOC.HOSPP ---
- Subjective Encounter Date: 01/14/20 Encounter Time: 11:20 Subjective: Patient feeling much more alert and energetic since starting hemodialysis. No complaints this morning. - Objective Vital Signs & Weight: Vital Signs (12 hours) Temp Pulse Resp BP Pulse Ox 01/14/20 07:12 98.9 F 61 16 132/67 97 01/14/20 04:03 98.4 F 55 L 18 119/65 99 01/14/20 00:00 59 L 18 115/64 97 01/13/20 20:35 62 Weight Admit Weight 124 lb 14.4 oz Weight 124 lb 14.4 oz I&O: 01/13/20 01/14/20 01/15/20 06:59 06:59 06:59 Intake Total 495 650 Output Total 0 Balance 495 650 Result Diagrams: 01/14/20 04:16 01/14/20 04:16 Hospitalist ROS - Review of Systems Constitutional: denies: fever, chills Respiratory: denies: cough, shortness of breath Cardiovascular: denies: chest pain, palpitations Gastrointestinal: denies: nausea, vomiting, abdominal pain - Medication Medications: Active Medications Generic Name Dose Route Start Last Admin Trade Name Freq PRN Reason Stop Dose Admin Diltiazem HCl 120 mg 01/13/20 21:00 01/13/20 20:35 Cardizem Cd PO 120 mg HS JAM Administration Enoxaparin Sodium 30 mg 01/13/20 09:00 01/13/20 09:00 Lovenox SC Not Given 0900 JAM Potassium Chloride 40 meq/ 100 mls @ 25 mls/hr 01/14/20 06:30 01/14/20 06:03 Device IVPB 01/14/20 10:29 100 mls NOW JAM Administration Pantoprazole Sodium 40 mg 01/13/20 09:00 01/13/20 09:00 Protonix PO Not Given DAILY JAM Polyethylene Glycol 17 gm 01/13/20 09:00 01/13/20 09:00 Miralax PO Not Given DAILY JAM Sodium Chloride 10 ml 01/13/20 21:00 01/13/20 22:53 Flush - Normal Saline IVF Not Given Q12HR JAM - Exam General Appearance: NAD, awake alert ENT: moist mucosa Heart: RRR, no murmur, no gallops, no rubs Respiratory: CTAB, no wheezes, no rales, no ronchi Gastrointestinal: soft, non-tender, non-distended, normal bowel sounds Psychiatric: normal affect, normal behavior, A&O x 3 Hosp A/P (1) End-stage renal disease needing dialysis Code(s): N18.6 - END STAGE RENAL DISEASE; Z99.2 - DEPENDENCE ON RENAL DIALYSIS Status: Acute (2) Metabolic encephalopathy Code(s): G93.41 - METABOLIC ENCEPHALOPATHY Status: Acute (3) Anemia in CKD (chronic kidney disease) Code(s): N18.9 - CHRONIC KIDNEY DISEASE, UNSPECIFIED; D63.1 - ANEMIA IN CHRONIC KIDNEY DISEASE Status: Chronic (4) Dyslipidemia Code(s): E78.5 - HYPERLIPIDEMIA, UNSPECIFIED Status: Chronic (5) HTN (hypertension) Code(s): I10 - ESSENTIAL (PRIMARY) HYPERTENSION Status: Chronic (6) Rectal cancer Code(s): C20 - MALIGNANT NEOPLASM OF RECTUM Status: Chronic (7) Hypokalemia Code(s): E87.6 - HYPOKALEMIA Status: Acute - Plan continue antibiotics, PT/OT, director of social media marketing, incentive spirometry, DVT proph w/ SCDs Consults: Palliative Care Stable currently Continue HD per Renal service, outpatient HD being arranged Continue Ancef Replacing potassium PT/OT for mobilization Palliative care for goals of care COVID rule out pending AM lab: BMP, CBC, Mg++
[2020-01-14] MEDS: Aspirin 81 mg Enteric Coated Tablet PO SCH (08:31)
[2020-01-14] MEDS: Enoxaparin Sodium 30 MG/0.3 ML SYRINGE SC SCH (08:32)
[2020-01-14] MEDS: Polyethylene Glycol 3350 17 GM Packet PO SCH (08:33)
[2020-01-14 13:16] LABS: SARS-CoV-2 MS2 Positive; SARS-CoV-2 N Gene Negative; SARS-CoV-2 S Gene Negative; SARS-CoV-2 orf1ab Negative
[2020-01-14] MEDS: Rosuvastatin 10 MG TAB PO SCH (22:03)
[2020-01-15 06:28] LABS: #Eosinphils 0.2 thou/uL (0.0-0.7); #Lymphocytes 1.7 thou/uL (1.20-3.40); #Monocytes 0.6 thou/uL (0.11-0.59); #Neutrophils 2.4 thou/uL (1.40-6.50); %Basophils 0.6 % (0.0-1.0); %Eosinophils 4.3 % (0.0-10.0); %Lymphocytes 33.8 % (21.0-51.0); %Neutrophils 49.3 % (42.0-75.0); Hemoglobin 7.7 g/dL (12.0-16.0); Mean Corpuscular HGB CONC 34.4 g/dL (32.0-36.0); Mean Corpuscular Hemoglobin 32.4 pg (27.0-31.0); Mean Corpuscular Volume 94.1 fL (78.0-98.0); Mean Platelet Volume 8.5 fL (7.4-10.4); Platelet Count 125 thou/uL (130-400); RBC Distribution Width 13.1 % (11.5-14.5); Red Blood Cell (RBC) Count 2.38 mill/uL (4.20-5.40); White Blood Cell (WBC) Count 4.9 thou/uL (4.8-10.8)
[2020-01-15 06:53] LABS: Anion Gap 12 mmol/L (10-20); BUN (Urea Nitrogen) 37 mg/dL (9.8-20.1); Calc. Creatinine Clearance 13 mL/min (70-130); Calcium 7.9 mg/dL (7.8-10.44); Carbon Dioxide 15 mmol/L (23-31); Chloride 117 mmol/L (98-107); Estimated GFR-MDRD 15; Glucose 99 mg/dL (83-110); Magnesium 1.7 mg/dL (1.6-2.6); Potassium 3.2 mmol/L (3.5-5.1); Sodium 141 mmol/L (136-145)
[2020-01-15] MEDS: Pancrelipase DR 12000 1 CAP PO SCH ×3 (08:51→17:29)
[2020-01-15] MEDS: Polyethylene Glycol 3350 17 GM Packet PO SCH ×2 (08:52)
[2020-01-15] MEDS: Aspirin 81 mg Enteric Coated Tablet PO SCH (08:52)
[2020-01-15] MEDS: Enoxaparin Sodium 30 MG/0.3 ML SYRINGE SC SCH (08:52)
[2020-01-15] MEDS ORDERED: READ PPD TEST SITE PO SCH (09:00)
[2020-01-15] MEDS ORDERED: Heparin 10,000 UNITS/ 10 ML VIAL ONE (09:43)
--- NOTE | 2020-01-15 13:07 | PDOC.HOSPP ---
- Subjective Encounter Date: 01/15/20 Encounter Time: 08:00 Subjective: Pt was seen for followup re: ESRD needing dialysis. Had dialysis for one hour yesterday. No complaints today. - Objective Vital Signs & Weight: Vital Signs (12 hours) Temp Pulse Resp BP Pulse Ox 01/15/20 12:06 98.8 F 74 18 120/77 99 01/15/20 08:45 97 01/15/20 07:12 98.4 F 60 16 124/65 97 01/15/20 04:16 98.7 F 61 14 110/57 L 98 Weight Admit Weight 124 lb 14.4 oz Weight 124 lb 14.4 oz I&O: 01/14/20 01/15/20 01/16/20 06:59 06:59 06:59 Intake Total 650 760 Output Total 0 Balance 650 760 Result Diagrams: 01/15/20 05:55 01/15/20 05:55 Additional Labs: labs and MARs reviewed by me Hospitalist ROS - Review of Systems Cardiovascular: denies: chest pain, palpitations, orthopnea, paroxysmal noc. dyspnea, edema, light headedness Gastrointestinal: denies: nausea, vomiting, abdominal pain, diarrhea, constipation, melena, hematochezia - Medication Medications: Active Medications Generic Name Dose Route Start Last Admin Trade Name Freq PRN Reason Stop Dose Admin Lipase/Protease/Amylase 2 cap 01/15/20 08:00 01/15/20 11:[address] [place] [address] [id number] PO 2 cap TID-WM JAM Administration Aspirin 81 mg 01/14/20 09:00 01/15/20 08:52 Ecotrin PO 81 mg DAILY JAM Administration Diltiazem HCl 120 mg 01/13/20 21:00 01/14/20 22:03 Cardizem Cd PO 120 mg HS JAM Administration Enoxaparin Sodium 30 mg 01/13/20 09:00 01/15/20 08:52 Lovenox SC 30 mg 0900 JAM Administration Pantoprazole Sodium 40 mg 01/13/20 09:00 01/15/20 08:52 Protonix PO 40 mg DAILY JAM Administration Polyethylene Glycol 17 gm 01/13/20 09:00 01/15/20 08:52 Miralax PO Not Given DAILY JAM Polyethylene Glycol 17 gm 01/15/20 09:00 01/15/20 08:52 Miralax PO Not Given DAILY JAM Rosuvastatin Calcium 5 mg 06/27/20 21:00 01/14/20 22:03 Crestor PO 5 mg QPM JAM Administration Sodium Chloride 10 ml 01/13/20 21:00 01/15/20 08:53 Flush - Normal Saline IVF 10 ml Q12HR JAM Administration - Exam General Appearance: awake alert Eye: anicteric sclera ENT: moist mucosa Neck: supple Heart: RRR Respiratory: CTAB Gastrointestinal: soft, non-tender Extremities: no cyanosis, no clubbing Psychiatric: normal affect, normal behavior Hosp A/P - Plan - Assessment (1) End-stage renal disease needing dialysis Code(s): N18.6 - END STAGE RENAL DISEASE; Z99.2 - DEPENDENCE ON RENAL DIALYSIS Status: Acute (2) Hypokalemia Code(s): E87.6 - HYPOKALEMIA Status: Acute (3) Anemia in CKD (chronic kidney disease) Code(s): N18.9 - CHRONIC KIDNEY DISEASE, UNSPECIFIED; D63.1 - ANEMIA IN CHRONIC KIDNEY DISEASE Status: Chronic (4) Dyslipidemia Code(s): E78.5 - HYPERLIPIDEMIA, UNSPECIFIED Status: Chronic (5) HTN (hypertension) Code(s): I10 - ESSENTIAL (PRIMARY) HYPERTENSION Status: Chronic (6) Metabolic encephalopathy Code(s): G93.41 - METABOLIC ENCEPHALOPATHY Status: Resolved - Plan Pt started on dialysis, will need dialysis chair. Hemodynamically stable. Mobilize patient COVID ruled out
[2020-01-15] MEDS: Rosuvastatin 10 MG TAB PO SCH (22:25)
[2020-01-16] MEDS ORDERED: Fentanyl 100 MCG/2 ML VIAL ONE ×2 (09:58→12:49)
[2020-01-16] MEDS ORDERED: Midazolam HCl 2 mg/2 ml Vial ONE (10:00)
[2020-01-16] MEDS ORDERED: Bupivacaine HCl 0.5%/Epinephrine 1:200,000/PF 30 ml Vial ONE (12:23)
[2020-01-16] MEDS ORDERED: Ondansetron PF 4 MG/2 ML Vial ONE (12:23)
[2020-01-16] MEDS ORDERED: EPHEDRINE 25 MG/5 ML SYRINGE ONE (12:23)
[2020-01-16] MEDS ORDERED: PROPOFOL 200 MG/20 ML VIAL ONE (12:23)
[2020-01-16] MEDS ORDERED: Heparin 10,000 UNITS/1 ML VIAL ONE (12:47)
[2020-01-16] MEDS ORDERED: Sodium Chloride 0.9% 0 ML ONE (12:47)
[2020-01-16] MEDS ORDERED: Lidocaine 1% w/Epinephrine 1:100K 20 ML VIAL ONE (12:47)
[2020-01-16] MEDS ORDERED: Heparin 5,000 UNITS/ML VIAL ONE (12:47)
[2020-01-16] MEDS ORDERED: Bupivacaine PF 0.5% 30 ML VIAL ONE (12:47)
[2020-01-16] MEDS ORDERED: Protamine Sulfate 50 MG/5 ML VIAL ONE (12:47)
--- NOTE | 2020-01-16 13:06 | PDOC.HOSPP ---
- Subjective Encounter Date: 01/16/20 Encounter Time: 07:00 Subjective: Pt seen for followup for ESRD. Awaiting dialysis access surgery, no complaints. - Objective Vital Signs & Weight: Vital Signs (12 hours) Temp Pulse Resp BP Pulse Ox 01/16/20 07:43 99.3 F 71 14 112/70 96 01/16/20 03:42 98.7 F 67 16 112/78 96 Weight Admit Weight 124 lb 14.4 oz Weight 124 lb 14.4 oz I&O: 01/15/20 01/16/20 01/17/20 06:59 06:59 06:59 Intake Total 760 1260 0 Balance 760 1260 0 Result Diagrams: 01/15/20 05:55 01/15/20 05:55 Additional Labs: Labs and MARs reviewed by nc Hospitalist ROS - Review of Systems Genitourinary: denies: dysuria, frequency, incontinence, hematuria, retention, other Skin: reports: other. denies: rash, lesions, salbador, bruising - Medication Medications: Active Medications Generic Name Dose Route Start Last Admin Trade Name Emmaunelle PRN Reason Stop Dose Admin Lipase/Protease/Amylase 2 cap 01/15/20 08:00 01/15/20 17:[address] [place] [id number] PO 2 cap TID-WM JAM Administration Aspirin 81 mg 01/14/20 09:00 01/15/20 08:52 Ecotrin PO 81 mg DAILY JAM Administration Diltiazem HCl 120 mg 01/13/20 21:00 01/15/20 22:25 Cardizem Cd PO 120 mg HS JAM Administration Enoxaparin Sodium 30 mg 01/13/20 09:00 01/15/20 08:52 Lovenox SC 30 mg 0900 JAM Administration Pantoprazole Sodium 40 mg 01/13/20 09:00 01/15/20 08:52 Protonix PO 40 mg DAILY JAM Administration Polyethylene Glycol 17 gm 01/13/20 09:00 01/15/20 08:52 Miralax PO Not Given DAILY JAM Polyethylene Glycol 17 gm 01/15/20 09:00 01/15/20 08:52 Miralax PO Not Given DAILY JAM Rosuvastatin Calcium 5 mg 01/14/20 21:00 01/15/20 22:25 Crestor PO 5 mg QPM JAM Administration Sodium Chloride 10 ml 01/13/20 21:00 01/15/20 22:26 Flush - Normal Saline IVF 10 ml Q12HR JAM Administration - Exam Eye: anicteric sclera ENT: no oropharyngeal lesions Neck: supple Heart: RRR Respiratory: CTAB Gastrointestinal: soft, non-tender Extremities: no cyanosis Musculoskeletal: normal tone, normal strength Psychiatric: normal affect, normal behavior Hosp A/P - Plan - Assessment (1) End-stage renal disease needing dialysis Code(s): N18.6 - END STAGE RENAL DISEASE; Z99.2 - DEPENDENCE ON RENAL DIALYSIS Status: Acute (2) Hypokalemia Code(s): E87.6 - HYPOKALEMIA Status: Acute (3) Anemia in CKD (chronic kidney disease) Code(s): N18.9 - CHRONIC KIDNEY DISEASE, UNSPECIFIED; D63.1 - ANEMIA IN CHRONIC KIDNEY DISEASE Status: Chronic (4) Dyslipidemia Code(s): E78.5 - HYPERLIPIDEMIA, UNSPECIFIED Status: Chronic (5) HTN (hypertension) Code(s): I10 - ESSENTIAL (PRIMARY) HYPERTENSION Status: Chronic (6) Metabolic encephalopathy Code(s): G93.41 - METABOLIC ENCEPHALOPATHY Status: Resolved - Plan Pt started on dialysis during this hospitalization Will need dialysis chair for outpt dialysis. K improved to 3.2 Mobilize patient COVID ruled out
[2020-01-16] MEDS ORDERED: Promethazine HCl 25 MG/ML VIAL SLOW IVP PRN (14:18)
[2020-01-16] MEDS ORDERED: Promethazine HCl 25 MG/ML VIAL IM PRN (14:18)
[2020-01-16] MEDS ORDERED: Ondansetron HCl/PF 4 MG/2 ML Vial IVP PRN (14:18)
--- NOTE | 2020-01-16 14:53 | OP ---
DATE OF PROCEDURE: 01/16/2020 PREOPERATIVE DIAGNOSES: End-stage renal disease and poor veins by ultrasound vein mapping. POSTOPERATIVE DIAGNOSES: End-stage renal disease, poor veins by ultrasound vein mapping, although cephalic vein at the wrist noted to be well distended. PROCEDURE PERFORMED: Left Keisha fistula, 3.5 mm coronary artery dilator, 4 Jarred catheter passed throughout the forearm vein in the medial upper arm basilic vein. ANESTHESIA: Regional, TIVA. DESCRIPTION OF PROCEDURE: The patient was taken to the operating room with intentions and plans to most likely place a prosthetic graft; however, she had a well-distended cephalic vein at the wrist, thus incision was made between the radial artery and cephalic vein at the wrist longitudinally and carried down to skin and subcutaneous tissue. Cephalic vein and radial artery were dissected free. Vein was ligated on the hand side, transected, spatulated, and coronary dilators were placed from 2 mm to 3.5 mm throughout the length of the dilators. A 4 Jarred catheter was placed and it passed into the basilic vein upper arm without restriction. For this reason, the patient was given 6000 units of heparin intravenously. End vein to side radial artery anastomosis created after making an arteriotomy in the radial artery for 2.5 cm anastomosis, elongated with Friend scissors, and then accordingly spatulated the cephalic vein. Continuous suture of 6-0 Prolene used for the anastomosis releasing clamps and noting good flow in the fistula by Doppler to collaterals, clipped x2. Incision was closed by approximating subcutaneous tissues with 3-0 and 4-0 Monocryl and [place] glue applied. Good Doppler signal noted throughout the fistula in the forearm. The patient tolerated the procedure well. Job ID: [id number]
[2020-01-16] MEDS: Pancrelipase DR 12000 1 CAP PO SCH ×2 (16:58→18:36)
[2020-01-16] MEDS: Polyethylene Glycol 3350 17 GM Packet PO SCH ×2 (16:59)
[2020-01-16] MEDS: Enoxaparin Sodium 30 MG/0.3 ML SYRINGE SC SCH (17:06)
[2020-01-16] MEDS: Aspirin 81 mg Enteric Coated Tablet PO SCH (17:06)
--- NOTE | 2020-01-16 17:14 | PDOC.FMACP ---
Advance Care Planning - Problem (1) Palliative care encounter Status: Acute Code(s): Z51.5 - ENCOUNTER FOR PALLIATIVE CARE (2) End-stage renal disease needing dialysis Status: Acute Code(s): N18.6 - END STAGE RENAL DISEASE; Z99.2 - DEPENDENCE ON RENAL DIALYSIS (3) Rectal cancer Status: Chronic Code(s): C20 - MALIGNANT NEOPLASM OF RECTUM - Note Participants: family, surrogate decision-maker, palliative care Summary: Palliative Care introduced Advanced Care Planning, allowed an opportunity to decline. The diagnosis, prognosis and goals of care were discussed in relation to renal failure requiring dialysis and multiple morbidities. Appropriate forms and documentation to accomplish the goals of care were discussed, daughter states that they have been completed and will bring copies to the hospital. She is her mothers only living child as the patient is and she is the MPOA. Continue with full resuscitation and aggressive measures, but encouraged patient and daughter to discuss and revisit Directive to Physicians in the event the patient is not able to verbalize her wishes. All questions were answered. The Palliative Care Team will be engaged to assist with completion of any outstanding forms that are needed or identified now or in the future. Time Spent (mins): 30
[2020-01-16] MEDS: Rosuvastatin 10 MG TAB PO SCH (21:00)
[2020-01-17] MEDS: Aspirin 81 mg Enteric Coated Tablet PO SCH (08:22)
[2020-01-17] MEDS: Polyethylene Glycol 3350 17 GM Packet PO SCH ×2 (08:22→08:25)
[2020-01-17] MEDS: Pancrelipase DR 12000 1 CAP PO SCH ×3 (08:22→17:34)
[2020-01-17] MEDS: Enoxaparin Sodium 30 MG/0.3 ML SYRINGE SC SCH (08:22)
[2020-01-17] MEDS ORDERED: Heparin 10,000 UNITS/ 10 ML VIAL ONE (09:21)
--- NOTE | 2020-01-17 14:29 | PDOC.HOSPP ---
- Subjective Encounter Date: 01/17/20 Encounter Time: 07:40 Subjective: Pt seen for followup re: end stage renal disease. Feels better, c/o LUE swelling. - Objective Vital Signs & Weight: Vital Signs (12 hours) Temp Pulse Resp BP Pulse Ox 01/17/20 13:36 80 18 108/75 01/17/20 07:24 98.5 F 65 16 127/64 98 01/17/20 03:27 98.7 F 60 18 99/60 96 Weight Admit Weight 124 lb 14.4 oz Weight 124 lb 14.4 oz I&O: 01/16/20 01/17/20 01/18/20 06:59 06:59 06:59 Intake Total 1260 600 Output Total 191 Balance 1260 409 Result Diagrams: 01/15/20 05:55 01/15/20 05:55 Additional Labs: Labs and MARs reviewed by ar Hospitalist ROS - Review of Systems Cardiovascular: denies: chest pain, palpitations, orthopnea, paroxysmal noc. dyspnea, edema, light headedness Gastrointestinal: denies: nausea, vomiting, abdominal pain, diarrhea, constipation, melena, hematochezia - Medication Medications: Active Medications Generic Name Dose Route Start Last Admin Trade Name Freq PRN Reason Stop Dose Admin Lipase/Protease/Amylase 2 cap 01/15/20 08:00 01/17/20 13:00 Dagoberto Ramirez [id number] PO Not Given TID-WM JAM Aspirin 81 mg 01/14/20 09:00 01/17/20 08:22 Ecotrin PO 81 mg DAILY JAM Administration Diltiazem HCl 120 mg 01/13/20 21:00 01/16/20 21:00 Cardizem Cd PO 120 mg HS JAM Administration Enoxaparin Sodium 30 mg 01/13/20 09:00 01/17/20 08:22 Lovenox SC 30 mg 0900 JAM Administration Pantoprazole Sodium 40 mg 01/13/20 09:00 01/17/20 08:22 Protonix PO 40 mg DAILY JAM Administration Polyethylene Glycol 17 gm 01/13/20 09:00 01/17/20 08:22 Miralax PO 17 gm DAILY JAM Administration Rosuvastatin Calcium 5 mg 01/14/20 21:00 01/16/20 21:00 Crestor PO 5 mg QPM JAM Administration Sodium Chloride 10 ml 01/13/20 21:00 01/17/20 08:25 Flush - Normal Saline IVF 10 ml Q12HR JAM Administration - Exam General Appearance: awake alert Eye: anicteric sclera ENT: moist mucosa Neck: supple Heart: RRR Respiratory: CTAB Gastrointestinal: soft, non-tender Gastrointestinal - other findings: ostomy Extremities: no cyanosis Musculoskeletal: no muscle wasting Psychiatric: normal affect, normal behavior Hosp A/P - Plan - Assessment (1) End-stage renal disease needing dialysis Code(s): N18.6 - END STAGE RENAL DISEASE; Z99.2 - DEPENDENCE ON RENAL DIALYSIS Status: Acute (2) Hypokalemia Code(s): E87.6 - HYPOKALEMIA Status: Acute (3) Anemia in CKD (chronic kidney disease) Code(s): N18.9 - CHRONIC KIDNEY DISEASE, UNSPECIFIED; D63.1 - ANEMIA IN CHRONIC KIDNEY DISEASE Status: Chronic (4) Dyslipidemia Code(s): E78.5 - HYPERLIPIDEMIA, UNSPECIFIED Status: Chronic (5) HTN (hypertension) Code(s): I10 - ESSENTIAL (PRIMARY) HYPERTENSION Status: Chronic (6) Metabolic encephalopathy Code(s): G93.41 - METABOLIC ENCEPHALOPATHY Status: Resolved - Plan Await outpt dialysis chair Mobilize patient COVID ruled out
[2020-01-17] MEDS: Rosuvastatin 10 MG TAB PO SCH (21:06)
[2020-01-18] MEDS: Aspirin 81 mg Enteric Coated Tablet PO SCH (08:16)
[2020-01-18] MEDS: Pancrelipase DR 12000 1 CAP PO SCH ×3 (08:16→17:27)
[2020-01-18] MEDS: Polyethylene Glycol 3350 17 GM Packet PO SCH (08:16)
[2020-01-18] MEDS: Enoxaparin Sodium 30 MG/0.3 ML SYRINGE SC SCH (08:17)
[2020-01-18 11:23] LABS: #Eosinphils 0.2 thou/uL (0.0-0.7); #Lymphocytes 1.4 thou/uL (1.20-3.40); #Monocytes 0.8 thou/uL (0.11-0.59); #Neutrophils 4.3 thou/uL (1.40-6.50); %Basophils 0.5 % (0.0-1.0); %Eosinophils 2.4 % (0.0-10.0); %Lymphocytes 20.6 % (21.0-51.0); %Neutrophils 64.6 % (42.0-75.0); Hemoglobin 9.3 g/dL (12.0-16.0); Mean Corpuscular HGB CONC 32.5 g/dL (32.0-36.0); Mean Corpuscular Hemoglobin 31.6 pg (27.0-31.0); Mean Corpuscular Volume 97.1 fL (78.0-98.0); Platelet Count 164 thou/uL (130-400); RBC Distribution Width 12.8 % (11.5-14.5); Red Blood Cell (RBC) Count 2.95 mill/uL (4.20-5.40); White Blood Cell (WBC) Count 6.6 thou/uL (4.8-10.8)
[2020-01-18 11:27] LABS: Anion Gap 16 mmol/L (10-20); BUN (Urea Nitrogen) 28 mg/dL (9.8-20.1); Calc. Creatinine Clearance 14 mL/min (70-130); Calcium 8.6 mg/dL (7.8-10.44); Carbon Dioxide 24 mmol/L (23-31); Chloride 101 mmol/L (98-107); Estimated GFR-MDRD 16; Glucose 126 mg/dL (83-110); Potassium 3.1 mmol/L (3.5-5.1); Sodium 138 mmol/L (136-145)
--- NOTE | 2020-01-18 14:25 | PDOC.HOSPP ---
- Subjective Encounter Date: 01/18/20 Encounter Time: 07:40 Subjective: Pt seen for followup, ESRD needing dialysis. Feels well, denies any complaints. - Objective Vital Signs & Weight: Vital Signs (12 hours) Temp Pulse Pulse Pulse Resp BP BP 01/18/20 11:38 79 16 01/18/20 11:07 91 77 133/100 H 122/67 01/18/20 07:31 73 16 01/18/20 03:42 99.4 F 73 16 BP Pulse Ox 01/18/20 11:38 111/68 98 01/18/20 11:07 01/18/20 07:31 113/56 L 96 01/18/20 03:42 97/61 96 Weight Admit Weight 124 lb 14.4 oz Weight 124 lb 14.4 oz I&O: 01/17/20 01/18/20 01/19/20 06:59 06:59 06:59 Intake Total 600 951 Output Total 191 Balance 409 951 Result Diagrams: 01/18/20 10:23 01/18/20 10:23 Additional Labs: Labs and MARs reviewed by wa Hospitalist ROS - Review of Systems Cardiovascular: denies: chest pain, palpitations, orthopnea, paroxysmal noc. dyspnea, edema, light headedness Musculoskeletal: denies: neck pain, shoulder pain, arm pain, back pain, hand pain, leg pain - Medication Medications: Active Medications Generic Name Dose Route Start Last Admin Trade Name Freq PRN Reason Stop Dose Admin Lipase/Protease/Amylase 2 cap 01/15/20 08:00 01/18/20 12:18 [place] [id number] PO 2 cap TID-WM JAM Administration Aspirin 81 mg 01/14/20 09:00 01/18/20 08:16 Ecotrin PO 81 mg DAILY JAM Administration Diltiazem HCl 120 mg 01/13/20 21:00 01/17/20 21:06 Cardizem Cd PO 120 mg HS JAM Administration Enoxaparin Sodium 30 mg 01/13/20 09:00 01/18/20 08:17 Lovenox SC 30 mg 0900 JAM Administration Pantoprazole Sodium 40 mg 01/13/20 09:00 01/18/20 08:16 Protonix PO 40 mg DAILY JAM Administration Polyethylene Glycol 17 gm 01/13/20 09:00 01/18/20 08:16 Miralax PO 17 gm DAILY JAM Administration Rosuvastatin Calcium 5 mg 01/14/20 21:00 01/17/20 21:06 Crestor PO 5 mg QPM JAM Administration Sodium Chloride 10 ml 01/13/20 21:00 01/18/20 08:18 Flush - Normal Saline IVF 10 ml Q12HR JAM Administration - Exam General Appearance: NAD Eye: anicteric sclera ENT: no oropharyngeal lesions Neck: supple Heart: RRR Respiratory: CTAB Gastrointestinal: soft, non-tender Extremities: no clubbing Psychiatric: normal affect, normal behavior Hosp A/P - Plan - Assessment (1) End-stage renal disease needing dialysis Code(s): N18.6 - END STAGE RENAL DISEASE; Z99.2 - DEPENDENCE ON RENAL DIALYSIS Status: Acute (2) Hypokalemia Code(s): E87.6 - HYPOKALEMIA Status: Acute (3) Anemia in CKD (chronic kidney disease) Code(s): N18.9 - CHRONIC KIDNEY DISEASE, UNSPECIFIED; D63.1 - ANEMIA IN CHRONIC KIDNEY DISEASE Status: Chronic (4) Dyslipidemia Code(s): E78.5 - HYPERLIPIDEMIA, UNSPECIFIED Status: Chronic (5) HTN (hypertension) Code(s): I10 - ESSENTIAL (PRIMARY) HYPERTENSION Status: Chronic (6) Metabolic encephalopathy Code(s): G93.41 - METABOLIC ENCEPHALOPATHY Status: Resolved - Plan Waiting for outpt dialysis chair Needs for halfway Mobilize patient COVID ruled out Likely home 24-48 h
[2020-01-18] MEDS: Rosuvastatin 10 MG TAB PO SCH (20:37)
[2020-01-19 03:33] LABS: #Eosinphils 0.2 thou/uL (0.0-0.7); #Lymphocytes 1.9 thou/uL (1.20-3.40); #Monocytes 0.7 thou/uL (0.11-0.59); #Neutrophils 3.2 thou/uL (1.40-6.50); %Basophils 0.5 % (0.0-1.0); %Eosinophils 2.8 % (0.0-10.0); %Lymphocytes 31.2 % (21.0-51.0); %Monocytes 12.2 % (0.0-10.0); %Neutrophils 53.3 % (42.0-75.0); Hemoglobin 8.2 g/dL (12.0-16.0); Mean Corpuscular HGB CONC 33.7 g/dL (32.0-36.0); Mean Corpuscular Hemoglobin 32.4 pg (27.0-31.0); Mean Corpuscular Volume 96.3 fL (78.0-98.0); Platelet Count 159 thou/uL (130-400); RBC Distribution Width 12.5 % (11.5-14.5); Red Blood Cell (RBC) Count 2.52 mill/uL (4.20-5.40); White Blood Cell (WBC) Count 6.1 thou/uL (4.8-10.8)
[2020-01-19 03:56] LABS: Anion Gap 14 mmol/L (10-20); BUN (Urea Nitrogen) 44 mg/dL (9.8-20.1); Calc. Creatinine Clearance 13 mL/min (70-130); Calcium 8.4 mg/dL (7.8-10.44); Carbon Dioxide 26 mmol/L (23-31); Chloride 101 mmol/L (98-107); Estimated GFR-MDRD 15; Glucose 110 mg/dL (83-110); Sodium 138 mmol/L (136-145)
[2020-01-19] MEDS: Pancrelipase DR 12000 1 CAP PO SCH ×3 (08:26→17:36)
[2020-01-19] MEDS: Polyethylene Glycol 3350 17 GM Packet PO SCH (08:26)
[2020-01-19] MEDS: Enoxaparin Sodium 30 MG/0.3 ML SYRINGE SC SCH (08:26)
[2020-01-19] MEDS: Aspirin 81 mg Enteric Coated Tablet PO SCH (08:27)
[2020-01-19] MEDS ORDERED: Heparin 10,000 UNITS/ 10 ML VIAL ONE (08:38)
[2020-01-19 12:35] LABS: Hep B Core Total Ab Non-Reactive (NonReactive); Hep B Core Total Index 0.05 S/CO (0-0.79)
[2020-01-19] MEDS ORDERED: Potassium Chloride 20 MEQ TAB PO SCH (15:30)
--- NOTE | 2020-01-19 18:11 | PDOC.HOSPP ---
- Subjective Encounter Date: 01/19/20 Encounter Time: 18:09 Subjective: Pt seen for followup for ESRD. Reportedly had a drop in blood pressure when sat up from supine. - Objective Vital Signs & Weight: Vital Signs (12 hours) Temp Pulse Resp BP BP BP BP 01/19/20 15:11 98.3 F 80 14 01/19/20 15:05 01/19/20 15:00 01/19/20 14:41 53/39 L 112/72 113/62 130/76 01/19/20 08:00 98 F 70 14 BP BP BP BP Pulse Ox 01/19/20 15:11 115/70 96 01/19/20 15:05 130/76 01/19/20 15:00 113/62 53/39 L 112/72 01/19/20 14:41 01/19/20 08:00 112/57 L 96 Weight Admit Weight 124 lb 14.4 oz Weight 124 lb 14.4 oz I&O: 01/18/20 01/19/20 01/20/20 06:59 06:59 06:59 Intake Total 951 881 Balance 951 881 Result Diagrams: 01/19/20 03:15 01/19/20 03:15 Additional Labs: Labs and MARs reviewed by mn Hospitalist ROS - Review of Systems Cardiovascular: denies: chest pain, palpitations, orthopnea, paroxysmal noc. dyspnea, edema, light headedness Genitourinary: denies: dysuria, frequency, incontinence, hematuria, retention - Medication Medications: Active Medications Generic Name Dose Route Start Last Admin Trade Name Freq PRN Reason Stop Dose Admin Lipase/Protease/Amylase 2 cap 01/15/20 08:00 01/19/20 17:36 Dagoberto Ramirez [id number] PO 2 cap TID-WM JAM Administration Aspirin 81 mg 01/14/20 09:00 01/19/20 08:27 Ecotrin PO 81 mg DAILY JAM Administration Enoxaparin Sodium 30 mg 01/13/20 09:00 01/19/20 08:26 Lovenox SC 30 mg 0900 JAM Administration Pantoprazole Sodium 40 mg 01/13/20 09:00 01/19/20 08:27 Protonix PO 40 mg DAILY JAM Administration Polyethylene Glycol 17 gm 01/13/20 09:00 01/19/20 08:26 Miralax PO 17 gm DAILY JAM Administration Rosuvastatin Calcium 5 mg 06/27/20 21:00 01/18/20 20:37 Crestor PO 5 mg QPM JAM Administration Sodium Chloride 10 ml 01/13/20 21:00 01/19/20 08:27 Flush - Normal Saline IVF Not Given Q12HR JAM - Exam General Appearance: awake alert Eye: anicteric sclera ENT: moist mucosa Neck: supple Heart: RRR Respiratory: CTAB Gastrointestinal: soft, non-tender Extremities: no cyanosis Psychiatric: normal affect, normal behavior Hosp A/P - Plan - Assessment (1) End-stage renal disease needing dialysis Code(s): N18.6 - END STAGE RENAL DISEASE; Z99.2 - DEPENDENCE ON RENAL DIALYSIS Status: Acute (2) Hypokalemia Code(s): E87.6 - HYPOKALEMIA Status: Acute (3) Anemia in CKD (chronic kidney disease) Code(s): N18.9 - CHRONIC KIDNEY DISEASE, UNSPECIFIED; D63.1 - ANEMIA IN CHRONIC KIDNEY DISEASE Status: Chronic (4) Dyslipidemia Code(s): E78.5 - HYPERLIPIDEMIA, UNSPECIFIED Status: Chronic (5) HTN (hypertension) Code(s): I10 - ESSENTIAL (PRIMARY) HYPERTENSION Status: Chronic (6) Metabolic encephalopathy Code(s): G93.41 - METABOLIC ENCEPHALOPATHY Status: Resolved - Plan Waiting for outpt dialysis chair Mobilize patient COVID ruled out Episode of hypotension - decrease Procardia to 90 mg HS. Monitor vital signs, titrate antihypertensives as needed. Updated daughter by bedside.
[2020-01-19] MEDS: Rosuvastatin 10 MG TAB PO SCH (20:46)
[2020-01-19] MEDS: Diltiazem HCl SR 90 mg Capsule PO SCH (20:46)
[2020-01-20 04:36] LABS: #Basophils 0.1 thou/uL (0.0-0.2); #Eosinphils 0.1 thou/uL (0.0-0.7); #Lymphocytes 1.6 thou/uL (1.20-3.40); #Monocytes 0.8 thou/uL (0.11-0.59); #Neutrophils 3.7 thou/uL (1.40-6.50); %Basophils 0.8 % (0.0-1.0); %Eosinophils 2.3 % (0.0-10.0); %Lymphocytes 25.3 % (21.0-51.0); %Monocytes 13.1 % (0.0-10.0); %Neutrophils 58.5 % (42.0-75.0); Hemoglobin 8.4 g/dL (12.0-16.0); Mean Corpuscular HGB CONC 32.1 g/dL (32.0-36.0); Mean Corpuscular Hemoglobin 31.1 pg (27.0-31.0); Mean Platelet Volume 7.8 fL (7.4-10.4); Platelet Count 190 thou/uL (130-400); RBC Distribution Width 12.4 % (11.5-14.5); Red Blood Cell (RBC) Count 2.71 mill/uL (4.20-5.40); White Blood Cell (WBC) Count 6.3 thou/uL (4.8-10.8)
[2020-01-20 04:37] LABS: Anion Gap 14 mmol/L (10-20); BUN (Urea Nitrogen) 26 mg/dL (9.8-20.1); Calc. Creatinine Clearance 17 mL/min (70-130); Calcium 8.6 mg/dL (7.8-10.44); Carbon Dioxide 27 mmol/L (23-31); Chloride 102 mmol/L (98-107); Estimated GFR-MDRD 20; Glucose 112 mg/dL (83-110); Potassium 3.7 mmol/L (3.5-5.1); Sodium 139 mmol/L (136-145)
[2020-01-20] MEDS: Polyethylene Glycol 3350 17 GM Packet PO SCH (09:28)
[2020-01-20] MEDS: Pancrelipase DR 12000 1 CAP PO SCH ×3 (09:29→17:23)
[2020-01-20] MEDS: Aspirin 81 mg Enteric Coated Tablet PO SCH (09:29)
[2020-01-20] MEDS: Enoxaparin Sodium 30 MG/0.3 ML SYRINGE SC SCH (09:29)
--- NOTE | 2020-01-20 11:33 | PDOC.HOSPP ---
- Subjective Encounter Date: 01/20/20 Encounter Time: 07:40 Subjective: Pt seen for follow up for end stage renal disease. - Objective Vital Signs & Weight: Vital Signs (12 hours) Temp Pulse Resp BP Pulse Ox 01/20/20 07:40 98.5 F 72 16 115/58 L 95 01/20/20 03:42 98.3 F 83 17 120/65 96 Weight Admit Weight 124 lb 14.4 oz Weight 124 lb 14.4 oz I&O: 01/19/20 01/20/20 01/21/20 06:59 06:59 06:59 Intake Total 881 530 Output Total 0 Balance 881 530 Result Diagrams: 01/20/20 04:00 01/20/20 04:00 Additional Labs: Labs and MARs reviewed by [place] Hospitalist ROS - Review of Systems Gastrointestinal: denies: nausea, vomiting, abdominal pain, diarrhea, constipation, melena, hematochezia Skin: denies: rash, lesions, salbador, bruising - Medication Medications: Active Medications Generic Name Dose Route Start Last Admin Trade Name Davidq PRN Reason Stop Dose Admin Lipase/Protease/Amylase 2 cap 01/15/20 08:00 01/20/20 09:[address] [id number] PO 2 cap TID-WM JAM Administration Aspirin 81 mg 01/14/20 09:00 01/20/20 09:29 Ecotrin PO 81 mg DAILY JAM Administration Diltiazem HCl 90 mg 01/19/20 21:00 01/19/20 20:46 Cardizem Sr PO 90 mg HS JAM Administration Enoxaparin Sodium 30 mg 01/13/20 09:00 01/20/20 09:29 Lovenox SC 30 mg 0900 JAM Administration Pantoprazole Sodium 40 mg 01/13/20 09:00 01/20/20 09:29 Protonix PO 40 mg DAILY JAM Administration Polyethylene Glycol 17 gm 01/13/20 09:00 01/20/20 09:28 Miralax PO 17 gm DAILY JAM Administration Rosuvastatin Calcium 5 mg 01/14/20 21:00 01/19/20 20:46 Crestor PO 5 mg QPM JAM Administration Sodium Chloride 10 ml 01/13/20 21:00 01/20/20 09:35 Flush - Normal Saline IVF 10 ml Q12HR JAM Administration - Exam General Appearance: NAD, awake alert Eye: anicteric sclera ENT: normocephalic atraumatic, moist mucosa Neck: supple Heart: RRR, no rubs Respiratory: CTAB Gastrointestinal: soft, non-tender Skin: no rashes Psychiatric: normal affect, normal behavior Hosp A/P - Plan - Assessment (1) End-stage renal disease needing dialysis Code(s): N18.6 - END STAGE RENAL DISEASE; Z99.2 - DEPENDENCE ON RENAL DIALYSIS Status: Acute (2) Hypokalemia Code(s): E87.6 - HYPOKALEMIA Status: Acute (3) Anemia in CKD (chronic kidney disease) Code(s): N18.9 - CHRONIC KIDNEY DISEASE, UNSPECIFIED; D63.1 - ANEMIA IN CHRONIC KIDNEY DISEASE Status: Chronic (4) Dyslipidemia Code(s): E78.5 - HYPERLIPIDEMIA, UNSPECIFIED Status: Chronic (5) HTN (hypertension) Code(s): I10 - ESSENTIAL (PRIMARY) HYPERTENSION Status: Chronic (6) Metabolic encephalopathy Code(s): G93.41 - METABOLIC ENCEPHALOPATHY Status: Resolved - Plan Await outpt dialysis chair Mobilize patient COVID ruled out Monitor for hypotension.
[2020-01-20] MEDS: Rosuvastatin 10 MG TAB PO SCH (21:12)
[2020-01-20] MEDS: Diltiazem HCl SR 90 mg Capsule PO SCH (21:12)
[2020-01-21] MEDS: Enoxaparin Sodium 30 MG/0.3 ML SYRINGE SC SCH (08:28)
[2020-01-21] MEDS: Polyethylene Glycol 3350 17 GM Packet PO SCH (08:28)
[2020-01-21] MEDS: Aspirin 81 mg Enteric Coated Tablet PO SCH (08:28)
[2020-01-21] MEDS: Pancrelipase DR 12000 1 CAP PO SCH ×3 (08:28→16:54)
[2020-01-21] MEDS ORDERED: Heparin 10,000 UNITS/ 10 ML VIAL ONE (11:13)
[2020-01-21] MEDS ORDERED: Acetaminophen 325 MG TAB PO PRN (16:11)
[2020-01-21] MEDS ORDERED: Polyethylene Glycol 3350 17 GM Packet PO PRN (16:15)
--- NOTE | 2020-01-21 18:18 | PDOC.HOSPP ---
- Subjective Encounter Date: 01/21/20 Encounter Time: 11:00 Subjective: no overnight events. this morning, tolerated hemodialysis well, 1.5L removed, orthostats normal before and after hemodialysis. In early afternoon, daughter at bedside, argumentative regarding plans to discharge, was clarified that the patient has no indication to remain in the hospital and that deconditioning may take weeks and despite that, patient may not return to baseline line. At end of conversation, daughter said that she may have difficulties caring for patient despite arranging home health and home PT/OT, so case briefer was involved in order to assess short term care or rehab. - Objective Vital Signs & Weight: Vital Signs (12 hours) Temp Pulse Resp BP BP BP BP 01/21/20 15:50 98.5 F 80 14 01/21/20 15:40 118/57 L 111/56 L 108/55 L 129/61 01/21/20 15:23 01/21/20 13:20 98.3 F 80 16 01/21/20 07:44 98.5 F 68 12 BP BP BP BP Pulse Ox 01/21/20 15:50 125/56 L 98 01/21/20 15:40 01/21/20 15:23 125/56 L 131/71 133/64 01/21/20 13:20 130/61 98 01/21/20 07:44 123/58 L 97 Weight Admit Weight 124 lb 14.4 oz Weight 124 lb 14.4 oz I&O: 01/20/20 01/21/20 01/22/20 06:59 06:59 06:59 Intake Total 530 480 480 Output Total 0 75 1500 Balance 530 405 -1020 Result Diagrams: 01/20/20 04:00 01/20/20 04:00 Hospitalist ROS - Review of Systems Constitutional: denies: fever, chills, sweats, weakness, malaise, other Respiratory: denies: cough, dry, shortness of breath, hemoptysis, SOB with excertion, pleuritic pain, sputum, wheezing, other Cardiovascular: denies: chest pain, palpitations, orthopnea, paroxysmal noc. dyspnea, edema, light headedness, other Gastrointestinal: denies: nausea, vomiting, abdominal pain, diarrhea, constipation, melena, hematochezia, other Genitourinary: denies: dysuria, frequency, incontinence, hematuria, retention, other - Medication Medications: Active Medications Generic Name Dose Route Start Last Admin Trade Name Emmanuelle PRN Reason Stop Dose Admin Lipase/Protease/Amylase 2 cap 01/15/20 08:00 01/21/20 16:54 Dagoberto Ramirez [id number] PO 2 cap TID-WM JAM Administration Aspirin 81 mg 01/14/20 09:00 01/21/20 08:28 Ecotrin PO 81 mg DAILY JAM Administration Enoxaparin Sodium 30 mg 01/13/20 09:00 01/21/20 08:28 Lovenox SC 30 mg 0900 JAM Administration Pantoprazole Sodium 40 mg 01/13/20 09:00 01/21/20 08:28 Protonix PO 40 mg DAILY JAM Administration Rosuvastatin Calcium 5 mg 01/14/20 21:00 01/20/20 21:12 Crestor PO 5 mg QPM JAM Administration Sodium Chloride 10 ml 01/13/20 21:00 01/21/20 08:28 Flush - Normal Saline IVF 10 ml Q12HR JAM Administration - Exam General Appearance: NAD, awake alert Neck: no JVD Heart: RRR, no gallops, no rubs Respiratory: CTAB, no wheezes, no rales, no ronchi Gastrointestinal: soft, non-tender, non-distended, normal bowel sounds Extremities: no edema Psychiatric: normal affect, normal behavior, A&O x 3 Hosp A/P - Plan #deconditioning #dizziness -tolerated hemodialysis well orthostats -ve before and after hemodialysis while working with PT, became dizzy when standing up -modified/discontinued medications that predispose to dizziness (opioids, antiHTN, promotility) -patient and daughter at bedside extensively educated regarding expectation -continue PT/OT -CM onboard regarding placement #ESRD; HD initiated #chronic normocytic anemia -defer to nephrology -epoetin as per nephrology Full code ELOS: 1 night
[2020-01-21] MEDS: Diltiazem HCl SR 60 mg Capsule PO SCH (22:00)
[2020-01-21] MEDS: Rosuvastatin 10 MG TAB PO SCH (22:00)
[2020-01-22 07:05] LABS: Anion Gap 15 mmol/L (10-20); BUN (Urea Nitrogen) 32 mg/dL (9.8-20.1); Calc. Creatinine Clearance 14 mL/min (70-130); Carbon Dioxide 28 mmol/L (23-31); Chloride 99 mmol/L (98-107); Estimated GFR-MDRD 17; Glucose 121 mg/dL (83-110); Magnesium 1.9 mg/dL (1.6-2.6); Phosphorus 4.6 mg/dL (2.3-4.7); Potassium 3.8 mmol/L (3.5-5.1); Sodium 138 mmol/L (136-145)
[2020-01-22] MEDS: Pancrelipase DR 12000 1 CAP PO SCH ×3 (09:51→17:17)
[2020-01-22] MEDS: Aspirin 81 mg Enteric Coated Tablet PO SCH (09:51)
[2020-01-22] MEDS: Enoxaparin Sodium 30 MG/0.3 ML SYRINGE SC SCH (09:51)
--- NOTE | 2020-01-22 13:55 | PDOC.HOSPP ---
- Subjective Encounter Date: 01/22/20 Encounter Time: 10:00 Subjective: no overnight events. this morning, feeling well and has no complaints. endorses mild improvement in ability to ambulate with assistance. Pending evaluation and rehab placement - Objective Vital Signs & Weight: Vital Signs (12 hours) Temp Pulse Resp BP Pulse Ox 01/22/20 11:40 98.9 F 89 16 109/50 L 98 01/22/20 07:39 98.2 F 78 16 107/54 L 98 01/22/20 05:21 98.5 F 81 16 111/59 L 95 Weight Admit Weight 124 lb 14.4 oz Weight 124 lb 14.4 oz I&O: 01/21/20 01/22/20 01/23/20 06:59 06:59 06:59 Intake Total 480 960 Output Total 75 1500 Balance 405 -540 Result Diagrams: 01/22/20 06:30 01/22/20 06:30 Hospitalist ROS - Review of Systems Constitutional: reports: weakness. denies: fever, chills, sweats, malaise, other Respiratory: denies: cough, dry, shortness of breath, hemoptysis, SOB with excertion, pleuritic pain, sputum, wheezing, other Cardiovascular: denies: chest pain, palpitations, orthopnea, paroxysmal noc. dyspnea, edema, light headedness, other Gastrointestinal: denies: nausea, vomiting, abdominal pain, diarrhea, constipation, melena, hematochezia, other - Medication Medications: Active Medications Generic Name Dose Route Start Last Admin Trade Name Freq PRN Reason Stop Dose Admin Lipase/Protease/Amylase 2 cap 01/15/20 08:00 01/22/20 11:36 Dagoberto Ramirez [id number] PO 2 cap TID-WM JAM Administration Aspirin 81 mg 01/14/20 09:00 01/22/20 09:51 Ecotrin PO 81 mg DAILY JAM Administration Diltiazem HCl 60 mg 01/21/20 21:00 01/21/20 22:00 Cardizem Sr PO 60 mg HS JAM Administration Enoxaparin Sodium 30 mg 01/13/20 09:00 01/22/20 09:51 Lovenox SC 30 mg 0900 JAM Administration Pantoprazole Sodium 40 mg 01/13/20 09:00 01/22/20 09:51 Protonix PO 40 mg DAILY JAM Administration Rosuvastatin Calcium 5 mg 01/14/20 21:00 01/21/20 22:00 Crestor PO 5 mg QPM JAM Administration Sodium Chloride 10 ml 01/13/20 21:00 01/22/20 09:51 Flush - Normal Saline IVF 10 ml Q12HR JAM Administration - Exam General Appearance: NAD, awake alert Neck: no JVD Heart: RRR, no murmur, no gallops, no rubs Respiratory: CTAB, no wheezes, no rales, no ronchi Gastrointestinal: soft, non-tender, non-distended, normal bowel sounds Extremities: no edema Psychiatric: normal affect, normal behavior, A&O x 3 Hosp A/P - Plan #deconditioning #dizziness -tolerated hemodialysis well orthostats -ve before and after hemodialysis pending rehab evaluation and placement -modified/discontinued medications that predispose to dizziness (opioids, antiHTN, promotility) -patient and daughter at bedside extensively educated regarding expectation -continue PT/OT -CM onboard regarding placement #ESRD; HD initiated #chronic normocytic anemia -epoetin as per nephrology Full code ELOS: 1 night
[2020-01-22] MEDS: Rosuvastatin 10 MG TAB PO SCH (20:17)
[2020-01-22] MEDS: Diltiazem HCl SR 60 mg Capsule PO SCH (20:17)
[2020-01-23] MEDS: Pancrelipase DR 12000 1 CAP PO SCH ×2 (08:04→12:17)
[2020-01-23 08:56] LABS: Anion Gap 15 mmol/L (10-20); BUN (Urea Nitrogen) 39 mg/dL (9.8-20.1); Calc. Creatinine Clearance 14 mL/min (70-130); Calcium 8.7 mg/dL (7.8-10.44); Carbon Dioxide 28 mmol/L (23-31); Chloride 99 mmol/L (98-107); Estimated GFR-MDRD 16; Glucose 106 mg/dL (83-110); Potassium 3.8 mmol/L (3.5-5.1); Sodium 138 mmol/L (136-145)
[2020-01-23] MEDS ORDERED: Heparin 10,000 UNITS/ 10 ML VIAL ONE (09:27)
[2020-01-23 12:16] VITALS: TEMP 98.1
[2020-01-23] MEDS: Enoxaparin Sodium 30 MG/0.3 ML SYRINGE SC SCH (12:17)
[2020-01-23] MEDS: Aspirin 81 mg Enteric Coated Tablet PO SCH (12:17)
[2020-01-23 14:28] VITALS: BP 109/62
== END 2020-01-23 16:22 | DRG 673 ==
LOC: ERS 20:47 → SJJU 23:24
PROVIDERS: ADMIT Internal Medicine; ATTEND Internal Medicine
PROC: 0JH60XZ Insertion of Tunneled Vascular Access Device into Chest Subcutaneous Tissue and Fascia, Open Approach (ICD-10-PCS; 2020-01-13)
PROC: 02HV33Z Insertion of Infusion Device into Superior Vena Cava, Percutaneous Approach (ICD-10-PCS; 2020-01-13)
PROC: B518YZA Fluoroscopy of Superior Vena Cava using Other Contrast, Guidance (ICD-10-PCS; 2020-01-13)
PROC: 0JPT0WZ Removal of Totally Implantable Vascular Access Device from Trunk Subcutaneous Tissue and Fascia, Open Approach (ICD-10-PCS; 2020-01-13)
PROC: 02PYX3Z Removal of Infusion Device from Great Vessel, External Approach (ICD-10-PCS; 2020-01-13)
PROC: 5A1D70Z Performance of Urinary Filtration, Intermittent, Less than 6 Hours Per Day (ICD-10-PCS; 2020-01-13)
PROC: 031C0ZF Bypass Left Radial Artery to Lower Arm Vein, Open Approach (ICD-10-PCS; principal; 2020-01-16)
DX: N17.9 Acute kidney failure, unspecified (principal); G93.41 Metabolic encephalopathy; I12.0 Hypertensive chronic kidney disease with stage 5 chronic kidney disease or end stage renal disease; E87.2 Acidosis; C20 Malignant neoplasm of rectum; N18.6 End stage renal disease; Z20.828 Contact with and (suspected) exposure to other viral communicable diseases; Z51.5 Encounter for palliative care; E86.0 Dehydration; K80.20 Calculus of gallbladder without cholecystitis without obstruction; D63.1 Anemia in chronic kidney disease; E87.6 Hypokalemia; I95.9 Hypotension, unspecified; Z93.3 Colostomy status; Z88.2 Allergy status to sulfonamides
CPT/HCPCS: 36415; 51701; 71045; 80048; 80053; 81003; 81015; 82728; 83540; 83550; 83605; 83735; 84100; 85014; 85018; 85025; 85046; 86580; 86704; 86706; 86803; 87340; 87389; 87635; 90935; 93970; 96360; 96361; C1752; G0257; G0365; J0670; J0690; J1644; J1650; J2001; J2250; J2405; J2704; J2720; J3010; J3480; J7070; S0020; U0003

== ENCOUNTER 2020-04-06 13:03 | Outpatient (CLI) | payer MEDICARE, OTHER ==
--- NOTE | 2020-04-06 13:51 | RAD ---
XR Lumbar Spine 2 Or 3 View HISTORY: Back pain FINDINGS: There are compression abnormalities of T12 and L1 vertebral bodies which are new since the CT scan of 05/06/2019. There is minimal anterolisthesis of L4 over L5. Vascular calcifications are present.
--- NOTE | 2020-04-06 13:58 | RAD ---
Thoracic spine 3 views: 04/06/2020 COMPARISON: None available HISTORY: Back pain FINDINGS: Right-sided hemodialysis catheter present. Atherosclerotic calcification of the aortic arch and descending thoracic aorta present. Age indeterminant superior endplate/anterior wedge compression fractures are noted, which involves T1 2 and L1 vertebral bodies with approximately 35 and 40% loss of vertebral body height anteriorly respectively. These fractures are new when compared to a CT of the abdomen and pelvis performed 06/07/2019. No anterolisthesis or retrolisthesis noted. Multilevel thoracic spine disc space narrowing and anterior osteophyte formation noted. IMPRESSION: Fracture deformities at T12 and L1 as above.
== END 2020-04-06 13:04 | disposition home or self-care (01) ==
LOC: BICRAD 13:03
PROVIDERS: ATTEND Internal Medicine Nephrology
DX: M54.9 Dorsalgia, unspecified (principal); S22.089A Unspecified fracture of T11-T12 vertebra, initial encounter for closed fracture; S32.019A Unspecified fracture of first lumbar vertebra, initial encounter for closed fracture; M43.16 Spondylolisthesis, lumbar region; I70.90 Unspecified atherosclerosis
CPT/HCPCS: 72072; 72100

== ENCOUNTER 2020-05-03 07:15 | Day surgery (SDC) | payer MEDICARE, OTHER ==
[2020-05-02 14:30] VITALS: BMI 23.2
[2020-05-03 08:03] VITALS: BP 155/86; TEMP 98.5
[2020-05-03] MEDS ORDERED: FLU VACC QS2020-21(65YR UP)/PF 240 MCG/0.7 ML SYRINGE IM ONE (09:00)
--- NOTE | 2020-05-03 11:21 | SPC ---
Dialysis fistulogram left upper extremity Sonographic guided vascular access HISTORY: Renal failure. Keisha fistula left wrist. Difficult vascular access for dialysis. FINDINGS: After explaining the procedure and answering all questions, left upper extremity was preppe d and draped in usual sterile fashion. Sonographic evaluation shows the cephalic vein to be distended with pulsatile flow. Arterial venous a nastomosis at the left wrist shown to be widely patent with duplex sonography. Sterile technique was used to access the most peripheral portion of a left forearm cephalic Keisha fi stula with a 22-gauge Angiocath. Serial imaging was performed. The cephalic vein at the forearm is widely patent with a few small bronson aterals. A valve within the cephalic vein just above the level of the wrist prevented arterial reflux, although vigorous arterial flow was seen throughout the procedure. At the level of the antecubital fossa, antecubital veins cross to fill widely patent but nondistended brachial and basilic veins. The cephalic vein above the level of the elbow is very small. Venous outflow and superior vena cava are patent. Fluoroscopy time 1.6 minutes. IMPRESSION : Left forearm cephalic fistula and venous outflow are widely patent. Forearm cephalic vein shows very good flow but limited distention. Additional time for maturation may be helpful. Above the elbow, the cephalic vein is very small. There is flow divided between the basilic vein and a duplicated brachial vein. Findings were called to Dr. Allen at the time the exam. Code CR.
[2020-05-03] MEDS ORDERED: Heparin 1,000 UNITS/ML VIAL ONE (14:29)
[2020-05-03] MEDS ORDERED: Iopamidol 300 61% 100 ML VIAL FS ONE (14:51)
== END 2020-05-03 09:25 | disposition home or self-care (01) ==
LOC: SPEC 07:15
PROVIDERS: ATTEND Specialist
PROC: B51W1ZZ Fluoroscopy of Dialysis Shunt/Fistula using Low Osmolar Contrast (ICD-10-PCS; principal; 2020-05-03)
DX: T82.590A Other mechanical complication of surgically created arteriovenous fistula, initial encounter (principal); I12.0 Hypertensive chronic kidney disease with stage 5 chronic kidney disease or end stage renal disease; N18.6 End stage renal disease; I48.91 Unspecified atrial fibrillation; M85.80 Other specified disorders of bone density and structure, unspecified site; E78.5 Hyperlipidemia, unspecified; Z85.038 Personal history of other malignant neoplasm of large intestine; Z79.82 Long term (current) use of aspirin; Z79.899 Other long term (current) drug therapy; Z88.2 Allergy status to sulfonamides; Z88.8 Allergy status to other drugs, medicaments and biological substances; Z91.048 Other nonmedicinal substance allergy status; Z99.2 Dependence on renal dialysis
CPT/HCPCS: 36901; J1644; Q9967

== ENCOUNTER 2020-08-09 07:30 | Outpatient (CLI) | payer MEDICARE, OTHER ==
--- NOTE | 2020-08-09 14:52 | RAD ---
Chest 2 views: 08/09/2020 COMPARISON: 07/25/2013 and 01/13/2020 HISTORY: Preoperative patient FINDINGS: There is a dialysis catheter on the right, distal tip overlying the region of the SVC. There is stable prominence of the cardiac silhouette. No pneumothorax or pleural fluid is seen and there is no focal consolidation or alveolar edema. IMPRESSION: No focal consolidation or alveolar edema.
[2020-08-10 01:57] LABS: SARS-CoV-2 PCR by NAA Not Detected (NotDetected)
--- NOTE | 2020-08-10 12:39 | EKG ---
Test Reason : Blood Pressure : / mmHG Vent. Rate : 063 BPM Atrial Rate : 063 BPM P-R Int : 168 ms QRS Dur : 078 ms QT Int : 436 ms P-R-T Axes : 076 011 049 degrees QTc Int : 446 ms Normal sinus rhythm with sinus arrhythmia Normal ECG No previous ECGs available Confirmed by MARTHA RICHTER ([id number]) on 08/10/2020 12:38:47 PM Referred By: CHAPARRO Confirmed By:MARTHA RICHTER
== END 2020-08-09 07:31 | disposition home or self-care (01) ==
LOC: LABBT 07:30
PROVIDERS: ATTEND Specialist
DX: Z01.818 Encounter for other preprocedural examination (principal); Z20.822 Contact with and (suspected) exposure to COVID-19; N18.6 End stage renal disease
CPT/HCPCS: 71046; U0003; U0005; 87635; 93005; 93010

== ENCOUNTER 2020-08-14 10:06 | Day surgery (SDC) | payer MEDICARE, OTHER ==
[2020-08-10 14:48] VITALS: BMI 22.8
[~2020-08-14 10:06] MED LIST: Bupivacaine HCl 0.5%/Epinephrine 1:200,000/PF 30 ml Vial ONE; Dexamethasone 20 MG/5 ML VIAL ONE; PHENYLEPHRINE-NS 100 MCG/ML 10 ML SYRINGE ONE; PROPOFOL 200 MG/20 ML VIAL ONE; ePHEDrine 50 MG/ML VIAL ONE
[2020-08-14] MEDS ORDERED: Fentanyl 100 MCG/2 ML VIAL ONE ×2 (10:53→12:56)
[2020-08-14] MEDS ORDERED: Midazolam HCl 2 mg/2 ml Vial ONE (11:03)
[2020-08-14] MEDS ORDERED: Protamine Sulfate 50 MG/5 ML VIAL ONE (12:05)
[2020-08-14] MEDS ORDERED: Bupivacaine PF 0.5% 30 ML VIAL ONE (12:05)
[2020-08-14] MEDS ORDERED: Heparin 5,000 UNITS/ML VIAL ONE (12:05)
[2020-08-14] MEDS ORDERED: EPINEPHrine 1 MG/ML AMP ONE (12:05)
[2020-08-14] MEDS ORDERED: Propofol 500 MG/50 ML VIAL ONE (12:09)
[2020-08-14 12:23] LABS: #Basophils 0.1 thou/uL (0.0-0.2); #Eosinphils 0.1 thou/uL (0.0-0.7); #Lymphocytes 1.4 thou/uL (1.20-3.40); #Monocytes 0.4 thou/uL (0.11-0.59); #Neutrophils 2.4 thou/uL (1.40-6.50); %Basophils 1.4 % (0.0-1.0); %Eosinophils 2.5 % (0.0-10.0); %Lymphocytes 31.9 % (21.0-51.0); %Monocytes 8.8 % (0.0-10.0); %Neutrophils 55.4 % (42.0-75.0); Hemoglobin 9.2 g/dL (12.0-16.0); Mean Corpuscular HGB CONC 33.2 g/dL (32.0-36.0); Mean Corpuscular Hemoglobin 33.1 pg (27.0-31.0); Mean Corpuscular Volume 99.6 fL (78.0-98.0); Mean Platelet Volume 7.5 fL (7.4-10.4); Platelet Count 164 thou/uL (130-400); RBC Distribution Width 12.1 % (11.5-14.5); Red Blood Cell (RBC) Count 2.79 mill/uL (4.20-5.40); White Blood Cell (WBC) Count 4.3 thou/uL (4.8-10.8)
[2020-08-14 12:26] LABS: Anion Gap 12 mmol/L (10-20); BUN (Urea Nitrogen) 21 mg/dL (9.8-20.1); Calc. Creatinine Clearance 14 mL/min (70-130); Calcium 8.6 mg/dL (7.8-10.44); Carbon Dioxide 30 mmol/L (23-31); Chloride 104 mmol/L (98-107); Glucose 99 mg/dL (83-110); Potassium 3.3 mmol/L (3.5-5.1); Sodium 143 mmol/L (136-145)
[2020-08-14] MEDS ORDERED: Heparin 1,000 UNITS/ML VIAL ONE (15:24)
--- NOTE | 2020-08-14 18:00 | OP ---
DATE OF PROCEDURE: 08/14/2020 PREOPERATIVE DIAGNOSES: End-stage renal disease, left Keisha fistula thrombosis, poor veins for primary fistula. POSTOPERATIVE DIAGNOSES: End-stage renal disease, left Keisha fistula thrombosis, poor veins for primary fistula. PROCEDURES PERFORMED: Exploration of antecubital vein, proximal volar forearm, finding the basilic vein outflow and cephalic vein inadequate, this wound was closed. Left upper arm dialysis graft tapered respectively, brachial artery above the antecubital fossa to the axillary vein. ANESTHESIA: Regional, TIVA. DESCRIPTION OF PROCEDURE: The patient was taken to the operating room, where under regional anesthesia, left upper extremity was prepared with ChloraPrep and draped in routine fashion. A proximal volar forearm incision longitudinally made below the antecubital fossa, finding the cephalic vein that seemed to be more likely the basilic vein, perforating branch dissected free. Branches were divided between clips and 4-0 silk ties. Spatulated branch point interrogated with coronary dilators, finding the outflows to be inadequate. Thus, it was ligated with 4-0 silk ties. Subcutaneous tissue was approximated with 3-0 Monocryl and skin with Dermabond, and attention turned to the left upper arm graft. Incision was made over the brachial artery longitudinally above the antecubital fossa, dissected free, surrounded with silastic vessel loop. Axillary vein dissected free, surrounded with silastic vessel loops proximally and distally in Friend fashion. The patient was given 6000 units of heparin intravenously after Cristina-Rogers tunneler was used to tailor a tapered graft. The 4 mm end of the graft was anastomosed to the brachial artery, making a longitudinal arteriotomy, elongating it sharply, adjusting the graft appropriately on for a cobra head anastomosis on the 4 mm end, tapered. Continuous suture of 6-0 Prolene used for the anastomosis. Vascular clamps released and there was good flow in the graft, and clamp placed on the graft. Axillary vein controlled with silastic Friend loops and longitudinal venotomy made for a 3.5 cm anastomosis using stay sutures of 6-0 Prolene and graft 7 mm tailored to configuration for cobra head anastomosis with continuous suture of 6-0 Prolene used for anastomosis. On completion of anastomosis, then the vascular clamps were released and there was good Doppler signal in the venous outflow. Good hemostasis noted. The patient was given 25 mg of protamine intravenously by Anesthesia. Subcutaneous tissue was approximated with 3-0 Monocryl, skin with subdermal 4-0 Monocryl and [place] glue applied. Job ID: [id number]
== END 2020-08-14 16:10 | disposition home or self-care (01) ==
LOC: SDC 10:06
PROVIDERS: ATTEND Specialist
PROC: 03180ZD Bypass Left Brachial Artery to Upper Arm Vein, Open Approach (ICD-10-PCS; principal; 2020-08-14)
DX: I12.0 Hypertensive chronic kidney disease with stage 5 chronic kidney disease or end stage renal disease (principal); N18.6 End stage renal disease; T82.868A Thrombosis due to vascular prosthetic devices, implants and grafts, initial encounter; E78.5 Hyperlipidemia, unspecified; I48.91 Unspecified atrial fibrillation; M85.80 Other specified disorders of bone density and structure, unspecified site; R73.03 Prediabetes; Z79.82 Long term (current) use of aspirin; Z79.899 Other long term (current) drug therapy; Z88.2 Allergy status to sulfonamides; Z88.8 Allergy status to other drugs, medicaments and biological substances; Z99.2 Dependence on renal dialysis
CPT/HCPCS: 36821; 80048; 85025; L8670; J0171; J0690; J1100; J1644; J2250; J2704; J2720; J3010; J3490; S0020

== ENCOUNTER 2020-09-20 06:40 | Emergency (ER) | payer MEDICARE, OTHER | END 2020-09-20 08:50 | disposition home or self-care (01) | LOC: ERS 06:40 | DX: T82.838A Hemorrhage due to vascular prosthetic devices, implants and grafts, initial encounter (principal) | CPT/HCPCS: 99283 ==

== ENCOUNTER 2020-11-08 13:36 | Outpatient (CLI) | payer MEDICARE, OTHER | END 2020-11-08 13:37 | disposition home or self-care (01) | LOC: BICMAMMO 13:36 | PROVIDERS: ATTEND Family Medicine | DX: Z12.31 Encounter for screening mammogram for malignant neoplasm of breast (principal); Z85.038 Personal history of other malignant neoplasm of large intestine | CPT/HCPCS: 77063; 77067 ==

== ENCOUNTER 2021-09-05 11:45 | Outpatient (CLI) | payer MEDICARE, OTHER | END 2021-09-05 11:46 | disposition home or self-care (01) | LOC: PET 11:45 | PROVIDERS: ATTEND Internal Medicine Hematology & Oncology | DX: C20 Malignant neoplasm of rectum (principal); R97.0 Elevated carcinoembryonic antigen [CEA] | CPT/HCPCS: 78815; A9552 ==

== ENCOUNTER 2021-11-12 14:17 | Outpatient (CLI) | payer MEDICARE, OTHER | END 2021-11-12 14:18 | disposition home or self-care (01) | LOC: BICMAMMO 14:17 | PROVIDERS: ATTEND Family Medicine | DX: Z12.31 Encounter for screening mammogram for malignant neoplasm of breast (principal); Z85.038 Personal history of other malignant neoplasm of large intestine | CPT/HCPCS: 77063; 77067 ==

== ENCOUNTER 2022-03-27 10:15 | Outpatient (CLI) | payer MEDICARE, OTHER | END 2022-03-27 10:16 | disposition home or self-care (01) | LOC: PET 10:15 | PROVIDERS: ATTEND Internal Medicine Hematology & Oncology | DX: C20 Malignant neoplasm of rectum (principal) | CPT/HCPCS: 78815; A9552 ==

== ENCOUNTER 2022-08-19 09:30 | Outpatient (CLI) | payer MEDICARE, OTHER | END 2022-08-19 09:31 | LOC: PET 09:30 | PROVIDERS: ATTEND Internal Medicine Hematology & Oncology | DX: C20 Malignant neoplasm of rectum (principal) | CPT/HCPCS: 78815; A9552 ==

== ENCOUNTER 2023-01-22 13:51 | Outpatient (CLI) | payer MEDICARE, OTHER | END 2023-01-22 13:52 | disposition home or self-care (01) | LOC: BICMAMMO 13:51 | PROVIDERS: ATTEND Family Medicine | DX: Z12.31 Encounter for screening mammogram for malignant neoplasm of breast (principal); Z85.038 Personal history of other malignant neoplasm of large intestine | CPT/HCPCS: 77063; 77067 ==

== ENCOUNTER 2023-05-20 02:54 | Inpatient (IN) | payer MEDICARE, OTHER ==
[2023-05-20 03:47] LABS: #Eosinphils 0.2 thou/uL (0.0-0.7); #Monocytes 0.6 thou/uL (0.11-0.59); #Neutrophils 2.9 thou/uL (1.40-6.50); %Basophils 0.7 % (0.0-1.0); %Eosinophils 3.1 % (0.0-10.0); %Lymphocytes 30.9 % (21.0-51.0); %Monocytes 11.7 % (0.0-10.0); %Neutrophils 53.2 % (42.0-75.0); Hematocrit 28.6 % (36.0-47.0); Hemoglobin 9.2 g/dL (12.0-16.0); Mean Corpuscular HGB CONC 32.2 g/dL (32.0-36.0); Mean Corpuscular Volume 108.7 fl (78.0-98.0); Mean Platelet Volume 9.6 fL (7.4-10.4); Platelet Count 190 10x3/uL (130-400); RBC Distribution Width 14.7 % (11.5-14.5); Red Blood Cell (RBC) Count 2.63 mill/uL (4.20-5.40); White Blood Cell (WBC) Count 5.4 10x3/uL (4.8-10.8)
[2023-05-20 04:11] LABS: ALT (SGPT) Less than 7 U/L (8-55); AST (SGOT) 19 U/L (5-34); Albumin 4.2 g/dL (3.4-4.8); Alkaline Phosphatase 62 U/L (40-110); Anion Gap 19 mmol/L (10-20); BUN (Urea Nitrogen) 36 mg/dL (9.8-20.1); Bilirubin, Total 0.4 mg/dL (0.2-1.2); Calc. Creatinine Clearance 0 mL/min (70-130); Calcium 9.3 mg/dL (7.8-10.44); Carbon Dioxide 27 mmol/L (23-31); Chloride 97 mmol/L (98-107); Estimated GFR 6; Globulin 2.6 g/dL (2.4-3.5); Glucose 112 mg/dL (83-110); Potassium 3.7 mmol/L (3.5-5.1); Protein, Total 6.8 g/dL (5.8-8.1); Sodium 139 mmol/L (136-145)
[2023-05-20 04:23] LABS: PTT 28.6 sec (22.9-36.1)
[2023-05-20] MEDS ORDERED: Ondansetron PF 4 MG/2 ML Vial IVP PRN (06:45)
[2023-05-20] MEDS ORDERED: Ondansetron ODT 4 MG TAB SL PRN (06:45)
[2023-05-20] MEDS ORDERED: Acetaminophen 325 MG TAB PO PRN (06:45)
[2023-05-20 07:42] LABS: Troponin I 0.032 ng/mL (< 0.028)
[2023-05-20] MEDS ORDERED: Sevelamer Carbonate 800 MG TAB PO SCH (08:00)
[2023-05-20] MEDS ORDERED: Heparin 5,000 UNITS/ML VIAL SC SCH (09:00)
[2023-05-20] MEDS: Midodrine HCl 5 MG TAB PO SCH ×3 (10:20→21:55)
[2023-05-20] MEDS: Aspirin 81 mg Enteric Coated Tablet PO SCH (10:20)
[2023-05-20] MEDS: Cyanocobalamin (Vitamin B-12) 1,000 MCG TAB PO SCH (10:20)
[2023-05-20 11:00] LABS: Troponin I 0.032 ng/mL (< 0.028)
[2023-05-20] MEDS: Sevelamer Carbonate 800 MG TAB PO SCH ×2 (12:37→18:12)
[2023-05-20] MEDS: Pancrelipase DR 12,000 1 CAP PO SCH ×2 (13:39→18:15)
[2023-05-20] MEDS ORDERED: Heparin 10,000 UNITS/ 10 ML VIAL ONE (15:43)
[2023-05-20] MEDS ORDERED: Heparin 25,000 units/D5W 500 ML IVPB SCH (20:30)
[2023-05-20] MEDS ORDERED: Heparin 10,000 UNITS/ 10 ML VIAL SLOW IVP SCH (20:30)
[2023-05-20 21:29] LABS: Hematocrit 30.6 % (36.0-47.0); Hemoglobin 9.7 g/dL (12.0-16.0); Platelet Count 191 10x3/uL (130-400)
[2023-05-20] MEDS ORDERED: Heparin 25,000 units/D5W 500 ML ONE (21:34)
[2023-05-20] MEDS: Atorvastatin Calcium 20 MG TAB PO SCH (21:55)
[2023-05-21 02:45] LABS: #Eosinphils 0.2 thou/uL (0.0-0.7); #Monocytes 0.6 thou/uL (0.11-0.59); #Neutrophils 3.1 thou/uL (1.40-6.50); %Basophils 0.7 % (0.0-1.0); %Eosinophils 4.1 % (0.0-10.0); %Lymphocytes 30.1 % (21.0-51.0); %Monocytes 10.6 % (0.0-10.0); %Neutrophils 54.1 % (42.0-75.0); Hematocrit 29.4 % (36.0-47.0); Hemoglobin 9.5 g/dL (12.0-16.0); Mean Corpuscular HGB CONC 32.3 g/dL (32.0-36.0); Mean Corpuscular Hemoglobin 34.9 pg (27.0-31.0); Mean Corpuscular Volume 108.1 fl (78.0-98.0); Mean Platelet Volume 9.4 fL (7.4-10.4); Platelet Count 189 10x3/uL (130-400); RBC Distribution Width 14.7 % (11.5-14.5); Red Blood Cell (RBC) Count 2.72 mill/uL (4.20-5.40); White Blood Cell (WBC) Count 5.6 10x3/uL (4.8-10.8)
[2023-05-21 03:27] LABS: Anion Gap 15 mmol/L (10-20); BUN (Urea Nitrogen) 20 mg/dL (9.8-20.1); Calc. Creatinine Clearance 9 mL/min (70-130); Calcium 8.3 mg/dL (7.8-10.44); Carbon Dioxide 27 mmol/L (23-31); Chloride 100 mmol/L (98-107); Estimated GFR 10; Glucose 110 mg/dL (83-110); Potassium 3.4 mmol/L (3.5-5.1); Sodium 139 mmol/L (136-145)
[2023-05-21 04:21] LABS: PTT 216.6 sec (22.9-36.1)
[2023-05-21] MEDS: Midodrine HCl 5 MG TAB PO SCH ×3 (08:44→20:34)
[2023-05-21] MEDS: Aspirin 81 mg Enteric Coated Tablet PO SCH (08:44)
[2023-05-21] MEDS: Sevelamer Carbonate 800 MG TAB PO SCH ×3 (08:44→17:09)
[2023-05-21] MEDS: Cyanocobalamin (Vitamin B-12) 1,000 MCG TAB PO SCH (08:44)
[2023-05-21] MEDS: Pancrelipase DR 12,000 1 CAP PO SCH ×3 (08:56→17:09)
[2023-05-21] MEDS ORDERED: FLU VACC QS2023(65UP)/MF59C/PF 60 MCG/0.5 ML SYRINGE IM ONE (09:00)
[2023-05-21 14:45] LABS: PTT 199.6 sec (22.9-36.1)
[2023-05-21 17:33] LABS: Creatinine, Urine 58.74 mg/dL (47-110)
[2023-05-21] MEDS: Atorvastatin Calcium 20 MG TAB PO SCH (20:34)
[2023-05-22 04:34] LABS: #Eosinphils 0.2 thou/uL (0.0-0.7); #Monocytes 0.7 thou/uL (0.11-0.59); #Neutrophils 2.7 thou/uL (1.40-6.50); %Basophils 0.7 % (0.0-1.0); %Eosinophils 4.1 % (0.0-10.0); %Lymphocytes 31.7 % (21.0-51.0); %Monocytes 12.5 % (0.0-10.0); %Neutrophils 50.6 % (42.0-75.0); Hematocrit 29.2 % (36.0-47.0); Hemoglobin 9.2 g/dL (12.0-16.0); Mean Corpuscular HGB CONC 31.5 g/dL (32.0-36.0); Mean Corpuscular Hemoglobin 34.6 pg (27.0-31.0); Mean Corpuscular Volume 109.8 fl (78.0-98.0); Mean Platelet Volume 9.6 fL (7.4-10.4); Platelet Count 208 10x3/uL (130-400); RBC Distribution Width 14.6 % (11.5-14.5); Red Blood Cell (RBC) Count 2.66 mill/uL (4.20-5.40); White Blood Cell (WBC) Count 5.4 10x3/uL (4.8-10.8)
[2023-05-22 05:10] LABS: Anion Gap 17 mmol/L (10-20); BUN (Urea Nitrogen) 32 mg/dL (9.8-20.1); Calc. Creatinine Clearance 7 mL/min (70-130); Calcium 8.3 mg/dL (7.8-10.44); Carbon Dioxide 24 mmol/L (23-31); Chloride 100 mmol/L (98-107); Estimated GFR 7; Glucose 115 mg/dL (83-110); Potassium 3.7 mmol/L (3.5-5.1); Sodium 137 mmol/L (136-145)
[2023-05-22] MEDS: Pancrelipase DR 12,000 1 CAP PO SCH ×3 (11:46→18:05)
[2023-05-22] MEDS: Midodrine HCl 5 MG TAB PO SCH ×3 (11:47→21:51)
[2023-05-22] MEDS: Sevelamer Carbonate 800 MG TAB PO SCH ×3 (11:47→16:32)
[2023-05-22] MEDS: Aspirin 81 mg Enteric Coated Tablet PO SCH (11:47)
[2023-05-22] MEDS: Cyanocobalamin (Vitamin B-12) 1,000 MCG TAB PO SCH (11:48)
[2023-05-22 21:19] LABS: Hematocrit 29.5 % (36.0-47.0); Hemoglobin 9.4 g/dL (12.0-16.0); Platelet Count 196 10x3/uL (130-400)
[2023-05-22] MEDS: Atorvastatin Calcium 20 MG TAB PO SCH (21:51)
[2023-05-23 04:10] LABS: #Basophils 0.1 thou/uL (0.0-0.2); #Eosinphils 0.3 thou/uL (0.0-0.7); #Monocytes 0.8 thou/uL (0.11-0.59); #Neutrophils 2.1 thou/uL (1.40-6.50); %Lymphocytes 38.8 % (21.0-51.0); %Monocytes 14.9 % (0.0-10.0); %Neutrophils 40.1 % (42.0-75.0); Hematocrit 29.6 % (36.0-47.0); Hemoglobin 9.3 g/dL (12.0-16.0); Mean Corpuscular HGB CONC 31.4 g/dL (32.0-36.0); Mean Corpuscular Volume 111.3 fl (78.0-98.0); Mean Platelet Volume 9.2 fL (7.4-10.4); Platelet Count 206 10x3/uL (130-400); Red Blood Cell (RBC) Count 2.66 mill/uL (4.20-5.40); White Blood Cell (WBC) Count 5.2 10x3/uL (4.8-10.8)
[2023-05-23 04:32] LABS: Anion Gap 14 mmol/L (10-20); BUN (Urea Nitrogen) 22 mg/dL (9.8-20.1); Calc. Creatinine Clearance 9 mL/min (70-130); Calcium 8.6 mg/dL (7.8-10.44); Carbon Dioxide 28 mmol/L (23-31); Chloride 100 mmol/L (98-107); Estimated GFR 9; Glucose 101 mg/dL (83-110); Sodium 138 mmol/L (136-145)
[2023-05-23 05:58] LABS: Anisocytosis MODERATE=16-30 cells HPF (0-5); CellaVision Operator ID LAB.JMM; Elliptocytes SLIGHT = 2-5 cells HPF (0-1); Macrocytosis SLIGHT = 6-15 cells HPF (0-5); Platelet Adequacy Comment Platelets Normal; Polychromasia SLIGHT = 2-3 cells HPF (0-2)
[2023-05-23] MEDS: Aspirin 81 mg Enteric Coated Tablet PO SCH (08:51)
[2023-05-23] MEDS: Sevelamer Carbonate 800 MG TAB PO SCH ×3 (08:51→16:58)
[2023-05-23] MEDS: Midodrine HCl 5 MG TAB PO SCH ×3 (08:52→21:23)
[2023-05-23] MEDS: Cyanocobalamin (Vitamin B-12) 1,000 MCG TAB PO SCH (08:52)
[2023-05-23] MEDS ORDERED: Pancrelipase DR 12,000 1 CAP PO SCH (10:30)
[2023-05-23] MEDS: Pancrelipase DR 12,000 1 CAP PO SCH ×3 (10:35→16:59)
[2023-05-23] MEDS: Atorvastatin Calcium 20 MG TAB PO SCH (21:23)
[2023-05-24 04:44] LABS: #Eosinphils 0.3 thou/uL (0.0-0.7); #Monocytes 0.6 thou/uL (0.11-0.59); #Neutrophils 3.1 thou/uL (1.40-6.50); %Basophils 0.5 % (0.0-1.0); %Eosinophils 4.3 % (0.0-10.0); %Lymphocytes 29.5 % (21.0-51.0); %Monocytes 10.8 % (0.0-10.0); %Neutrophils 54.6 % (42.0-75.0); Hematocrit 31.3 % (36.0-47.0); Mean Corpuscular HGB CONC 31.9 g/dL (32.0-36.0); Mean Corpuscular Hemoglobin 35.2 pg (27.0-31.0); Mean Corpuscular Volume 110.2 fl (78.0-98.0); Mean Platelet Volume 9.3 fL (7.4-10.4); Platelet Count 219 10x3/uL (130-400); RBC Distribution Width 15.1 % (11.5-14.5); Red Blood Cell (RBC) Count 2.84 mill/uL (4.20-5.40); White Blood Cell (WBC) Count 5.8 10x3/uL (4.8-10.8)
[2023-05-24 05:06] LABS: Anion Gap 17 mmol/L (10-20); BUN (Urea Nitrogen) 31 mg/dL (9.8-20.1); Calc. Creatinine Clearance 7 mL/min (70-130); Carbon Dioxide 24 mmol/L (23-31); Chloride 99 mmol/L (98-107); Estimated GFR 7; Glucose 99 mg/dL (83-110); Potassium 3.6 mmol/L (3.5-5.1); Sodium 136 mmol/L (136-145)
[2023-05-24 05:45] LABS: Anisocytosis SLIGHT = 6-15 cells HPF (0-5); Burr Cells SLIGHT = 2-5 cells HPF (0-1); CellaVision Operator ID lab.abc; Macrocytosis SLIGHT = 6-15 cells HPF (0-5); Platelet Adequacy Comment Platelets Normal; Polychromasia SLIGHT = 2-3 cells HPF (0-2)
[2023-05-24] MEDS: Midodrine HCl 5 MG TAB PO SCH ×3 (10:05→20:52)
[2023-05-24] MEDS: Sevelamer Carbonate 800 MG TAB PO SCH ×3 (10:05→16:47)
[2023-05-24] MEDS: Pancrelipase DR 12,000 1 CAP PO SCH ×3 (10:06→16:48)
[2023-05-24] MEDS: Aspirin 81 mg Enteric Coated Tablet PO SCH (10:06)
[2023-05-24] MEDS: Cyanocobalamin (Vitamin B-12) 1,000 MCG TAB PO SCH (10:06)
[2023-05-24 19:53] LABS: Hematocrit 29.2 % (36.0-47.0); Hemoglobin 9.4 g/dL (12.0-16.0); Platelet Count 188 10x3/uL (130-400)
[2023-05-24] MEDS: Atorvastatin Calcium 20 MG TAB PO SCH (20:51)
[2023-05-25] MEDS ORDERED: Heparin 10,000 UNITS/ 10 ML VIAL ONE (08:26)
[2023-05-25] MEDS: Midodrine HCl 5 MG TAB PO SCH ×3 (08:43→21:48)
[2023-05-25] MEDS: Pancrelipase DR 12,000 1 CAP PO SCH ×3 (08:44→17:53)
[2023-05-25] MEDS: Sevelamer Carbonate 800 MG TAB PO SCH ×3 (08:44→17:53)
[2023-05-25] MEDS: Aspirin 81 mg Enteric Coated Tablet PO SCH (08:44)
[2023-05-25] MEDS: Cyanocobalamin (Vitamin B-12) 1,000 MCG TAB PO SCH (09:46)
[2023-05-25] MEDS: Atorvastatin Calcium 20 MG TAB PO SCH (21:48)
[2023-05-26] MEDS: Pancrelipase DR 12,000 1 CAP PO SCH ×3 (08:50→17:15)
[2023-05-26] MEDS: Midodrine HCl 5 MG TAB PO SCH ×3 (08:51→21:40)
[2023-05-26] MEDS: Sevelamer Carbonate 800 MG TAB PO SCH ×3 (08:51→17:15)
[2023-05-26] MEDS: Aspirin 81 mg Enteric Coated Tablet PO SCH (08:51)
[2023-05-26] MEDS: Cyanocobalamin (Vitamin B-12) 1,000 MCG TAB PO SCH (08:51)
[2023-05-26 19:42] LABS: Hematocrit 30.8 % (36.0-47.0); Hemoglobin 9.9 g/dL (12.0-16.0); Platelet Count 172 10x3/uL (130-400)
[2023-05-26] MEDS: Atorvastatin Calcium 20 MG TAB PO SCH (21:40)
[2023-05-27 06:27] VITALS: BMI 26.4
[2023-05-27] MEDS: Midodrine HCl 5 MG TAB PO SCH ×3 (07:22→20:58)
[2023-05-27] MEDS: Cyanocobalamin (Vitamin B-12) 1,000 MCG TAB PO SCH (07:22)
[2023-05-27] MEDS: Aspirin 81 mg Enteric Coated Tablet PO SCH (07:22)
[2023-05-27] MEDS ORDERED: Heparin 10,000 UNITS/ 10 ML VIAL ONE (11:25)
[2023-05-27] MEDS: Pancrelipase DR 12,000 1 CAP PO SCH ×3 (11:50→17:36)
[2023-05-27] MEDS: Sevelamer Carbonate 800 MG TAB PO SCH ×3 (11:50→17:35)
[2023-05-27 13:44] LABS: Anion Gap 16 mmol/L (10-20); BUN (Urea Nitrogen) 14 mg/dL (9.8-20.1); Calc. Creatinine Clearance 12 mL/min (70-130); Calcium 8.8 mg/dL (7.8-10.44); Carbon Dioxide 22 mmol/L (23-31); Chloride 100 mmol/L (98-107); Estimated GFR 13; Glucose 175 mg/dL (83-110); Potassium 3.7 mmol/L (3.5-5.1); Sodium 134 mmol/L (136-145)
[2023-05-27] MEDS: guaiFENesin ER 600 MG TAB PO SCH (20:57)
[2023-05-27] MEDS: Atorvastatin Calcium 20 MG TAB PO SCH (20:58)
[2023-05-28] MEDS: Sevelamer Carbonate 800 MG TAB PO SCH ×3 (08:47→17:01)
[2023-05-28] MEDS: guaiFENesin ER 600 MG TAB PO SCH ×2 (08:47→21:44)
[2023-05-28] MEDS: Cyanocobalamin (Vitamin B-12) 1,000 MCG TAB PO SCH (08:47)
[2023-05-28] MEDS: Aspirin 81 mg Enteric Coated Tablet PO SCH (08:47)
[2023-05-28] MEDS: Pancrelipase DR 12,000 1 CAP PO SCH ×3 (08:47→17:01)
[2023-05-28] MEDS: Midodrine HCl 5 MG TAB PO SCH ×3 (08:47→21:44)
[2023-05-28] MEDS: cefTRIAXone\\ROCEPHIN 1 GM in Sodium Chloride 0.9% 100 ML IVPB SCH (10:39)
[2023-05-28] MEDS ORDERED: Metoprolol Tartrate 5 MG/5 ML VIAL IVP PRN (17:36)
[2023-05-28 20:07] LABS: Hemoglobin 10.1 g/dL (12.0-16.0); Platelet Count 151 10x3/uL (130-400)
[2023-05-28] MEDS: Atorvastatin Calcium 20 MG TAB PO SCH (21:44)
[2023-05-29 05:44] LABS: Anion Gap 19 mmol/L (10-20); BUN (Urea Nitrogen) 36 mg/dL (9.8-20.1); Calc. Creatinine Clearance 7 mL/min (70-130); Calcium 8.5 mg/dL (7.8-10.44); Carbon Dioxide 23 mmol/L (23-31); Chloride 98 mmol/L (98-107); Estimated GFR 6; Glucose 100 mg/dL (83-110); Magnesium 2.3 mg/dL (1.6-2.6); Potassium 3.5 mmol/L (3.5-5.1); Sodium 136 mmol/L (136-145)
[2023-05-29] MEDS: guaiFENesin ER 600 MG TAB PO SCH ×2 (07:47→22:51)
[2023-05-29] MEDS: Cyanocobalamin (Vitamin B-12) 1,000 MCG TAB PO SCH (07:47)
[2023-05-29] MEDS: Aspirin 81 mg Enteric Coated Tablet PO SCH (07:47)
[2023-05-29] MEDS: Sevelamer Carbonate 800 MG TAB PO SCH ×3 (07:47→16:41)
[2023-05-29] MEDS: Midodrine HCl 5 MG TAB PO SCH ×3 (07:47→22:51)
[2023-05-29] MEDS: Pancrelipase DR 12,000 1 CAP PO SCH ×3 (07:48→16:41)
[2023-05-29] MEDS: cefTRIAXone\\ROCEPHIN 1 GM in Sodium Chloride 0.9% 100 ML IVPB SCH (12:24)
[2023-05-29] MEDS: Atorvastatin Calcium 20 MG TAB PO SCH (22:51)
[2023-05-30] MEDS: Aspirin 81 mg Enteric Coated Tablet PO SCH (09:15)
[2023-05-30] MEDS: Midodrine HCl 5 MG TAB PO SCH ×3 (09:16→21:51)
[2023-05-30] MEDS: guaiFENesin ER 600 MG TAB PO SCH ×2 (09:16→21:51)
[2023-05-30] MEDS: Cyanocobalamin (Vitamin B-12) 1,000 MCG TAB PO SCH (09:16)
[2023-05-30] MEDS: Sevelamer Carbonate 800 MG TAB PO SCH ×3 (09:16→19:58)
[2023-05-30] MEDS: cefTRIAXone\\ROCEPHIN 1 GM in Sodium Chloride 0.9% 100 ML IVPB SCH (12:35)
[2023-05-30] MEDS: Pancrelipase DR 12,000 1 CAP PO SCH (19:59)
[2023-05-30] MEDS: Atorvastatin Calcium 20 MG TAB PO SCH (21:50)
[2023-05-31 05:04] LABS: #Basophils 0.1 thou/uL (0.0-0.2); #Eosinphils 0.2 thou/uL (0.0-0.7); #Monocytes 0.7 thou/uL (0.11-0.59); #Neutrophils 4.1 thou/uL (1.40-6.50); %Basophils 0.7 % (0.0-1.0); %Eosinophils 2.6 % (0.0-10.0); %Lymphocytes 30.8 % (21.0-51.0); %Monocytes 9.9 % (0.0-10.0); %Neutrophils 55.7 % (42.0-75.0); Hematocrit 34.6 % (36.0-47.0); Hemoglobin 11.2 g/dL (12.0-16.0); Mean Corpuscular HGB CONC 32.4 g/dL (32.0-36.0); Mean Corpuscular Hemoglobin 34.7 pg (27.0-31.0); Mean Corpuscular Volume 107.1 fl (78.0-98.0); Mean Platelet Volume 10.2 fL (7.4-10.4); Platelet Count 152 10x3/uL (130-400); RBC Distribution Width 14.6 % (11.5-14.5); Red Blood Cell (RBC) Count 3.23 mill/uL (4.20-5.40); White Blood Cell (WBC) Count 7.4 10x3/uL (4.8-10.8)
[2023-05-31 05:28] LABS: Anion Gap 17 mmol/L (10-20); BUN (Urea Nitrogen) 38 mg/dL (9.8-20.1); Calc. Creatinine Clearance 6 mL/min (70-130); Carbon Dioxide 25 mmol/L (23-31); Chloride 101 mmol/L (98-107); Estimated GFR 6; Glucose 105 mg/dL (83-110); Magnesium 2.5 mg/dL (1.6-2.6); Potassium 3.8 mmol/L (3.5-5.1); Sodium 139 mmol/L (136-145)
[2023-05-31] MEDS: Midodrine HCl 5 MG TAB PO SCH ×3 (08:43→21:22)
[2023-05-31] MEDS: Aspirin 81 mg Enteric Coated Tablet PO SCH (08:43)
[2023-05-31] MEDS: Cyanocobalamin (Vitamin B-12) 1,000 MCG TAB PO SCH (08:43)
[2023-05-31] MEDS: Sevelamer Carbonate 800 MG TAB PO SCH ×3 (08:44→18:22)
[2023-05-31] MEDS: guaiFENesin ER 600 MG TAB PO SCH ×2 (08:44→21:22)
[2023-05-31] MEDS: Pancrelipase DR 12,000 1 CAP PO SCH ×3 (09:36→18:22)
[2023-05-31] MEDS: cefTRIAXone\\ROCEPHIN 1 GM in Sodium Chloride 0.9% 100 ML IVPB SCH (09:37)
[2023-05-31] MEDS: Saccharomyces boulardii 250 MG CAP PO SCH (10:42)
[2023-05-31] MEDS: Rosuvastatin 10 MG TAB PO SCH (21:22)
[2023-06-01 06:33] LABS: #Basophils 0.1 thou/uL (0.0-0.2); #Eosinphils 0.2 thou/uL (0.0-0.7); #Monocytes 0.6 thou/uL (0.11-0.59); #Neutrophils 3.4 thou/uL (1.40-6.50); %Basophils 0.8 % (0.0-1.0); %Eosinophils 2.8 % (0.0-10.0); %Lymphocytes 31.3 % (21.0-51.0); %Monocytes 9.2 % (0.0-10.0); %Neutrophils 55.7 % (42.0-75.0); Hematocrit 33.1 % (36.0-47.0); Hemoglobin 10.4 g/dL (12.0-16.0); Mean Corpuscular HGB CONC 31.4 g/dL (32.0-36.0); Mean Corpuscular Hemoglobin 34.3 pg (27.0-31.0); Mean Corpuscular Volume 109.2 fl (78.0-98.0); Mean Platelet Volume 10.8 fL (7.4-10.4); Platelet Count 138 10x3/uL (130-400); RBC Distribution Width 14.6 % (11.5-14.5); Red Blood Cell (RBC) Count 3.03 mill/uL (4.20-5.40); White Blood Cell (WBC) Count 6.2 10x3/uL (4.8-10.8)
[2023-06-01] MEDS: Midodrine HCl 5 MG TAB PO SCH ×3 (06:39→21:18)
[2023-06-01 07:02] LABS: Anion Gap 18 mmol/L (10-20); BUN (Urea Nitrogen) 45 mg/dL (9.8-20.1); Calc. Creatinine Clearance 5 mL/min (70-130); Calcium 8.7 mg/dL (7.8-10.44); Carbon Dioxide 23 mmol/L (23-31); Chloride 101 mmol/L (98-107); Estimated GFR 5; Glucose 90 mg/dL (83-110); Magnesium 2.5 mg/dL (1.6-2.6); Potassium 3.8 mmol/L (3.5-5.1); Sodium 138 mmol/L (136-145)
[2023-06-01] MEDS ORDERED: Heparin 10,000 UNITS/ 10 ML VIAL ONE (08:24)
[2023-06-01] MEDS: Sevelamer Carbonate 800 MG TAB PO SCH ×3 (11:24→16:51)
[2023-06-01] MEDS: guaiFENesin ER 600 MG TAB PO SCH ×2 (11:25→21:18)
[2023-06-01] MEDS: Cyanocobalamin (Vitamin B-12) 1,000 MCG TAB PO SCH (11:25)
[2023-06-01] MEDS: Saccharomyces boulardii 250 MG CAP PO SCH (11:25)
[2023-06-01] MEDS: Pancrelipase DR 12,000 1 CAP PO SCH ×3 (11:26→18:12)
[2023-06-01] MEDS: Aspirin 81 mg Enteric Coated Tablet PO SCH (11:26)
[2023-06-01] MEDS: Rosuvastatin 10 MG TAB PO SCH (21:18)
[2023-06-02 06:18] LABS: #Eosinphils 0.2 thou/uL (0.0-0.7); #Monocytes 0.5 thou/uL (0.11-0.59); #Neutrophils 2.4 thou/uL (1.40-6.50); %Basophils 0.8 % (0.0-1.0); %Lymphocytes 36.5 % (21.0-51.0); %Monocytes 10.7 % (0.0-10.0); %Neutrophils 48.6 % (42.0-75.0); Hematocrit 31.7 % (36.0-47.0); Mean Corpuscular HGB CONC 31.5 g/dL (32.0-36.0); Mean Corpuscular Hemoglobin 34.2 pg (27.0-31.0); Mean Corpuscular Volume 108.6 fl (78.0-98.0); Mean Platelet Volume 10.3 fL (7.4-10.4); Platelet Count 130 10x3/uL (130-400); RBC Distribution Width 14.6 % (11.5-14.5); Red Blood Cell (RBC) Count 2.92 mill/uL (4.20-5.40)
[2023-06-02 06:44] LABS: Anion Gap 16 mmol/L (10-20); BUN (Urea Nitrogen) 29 mg/dL (9.8-20.1); Calc. Creatinine Clearance 7 mL/min (70-130); Calcium 8.3 mg/dL (7.8-10.44); Carbon Dioxide 24 mmol/L (23-31); Chloride 101 mmol/L (98-107); Estimated GFR 8; Glucose 99 mg/dL (83-110); Magnesium 2.4 mg/dL (1.6-2.6); Potassium 3.8 mmol/L (3.5-5.1); Sodium 137 mmol/L (136-145)
[2023-06-02] MEDS: Midodrine HCl 5 MG TAB PO SCH ×3 (08:31→20:30)
[2023-06-02] MEDS: Cyanocobalamin (Vitamin B-12) 1,000 MCG TAB PO SCH (08:31)
[2023-06-02] MEDS: guaiFENesin ER 600 MG TAB PO SCH ×2 (08:31→20:30)
[2023-06-02] MEDS: Aspirin 81 mg Enteric Coated Tablet PO SCH (08:31)
[2023-06-02] MEDS: Sevelamer Carbonate 800 MG TAB PO SCH ×3 (08:32→17:22)
[2023-06-02] MEDS: Saccharomyces boulardii 250 MG CAP PO SCH (08:34)
[2023-06-02] MEDS: Pancrelipase DR 12,000 1 CAP PO SCH ×3 (10:15→18:31)
[2023-06-02] MEDS: Rosuvastatin 10 MG TAB PO SCH (20:30)
[2023-06-03 05:00] LABS: Anion Gap 15 mmol/L (10-20); BUN (Urea Nitrogen) 41 mg/dL (9.8-20.1); Calc. Creatinine Clearance 6 mL/min (70-130); Calcium 8.3 mg/dL (7.8-10.44); Carbon Dioxide 26 mmol/L (23-31); Chloride 101 mmol/L (98-107); Estimated GFR 6; Glucose 113 mg/dL (83-110); Potassium 4.2 mmol/L (3.5-5.1); Sodium 138 mmol/L (136-145)
[2023-06-03] MEDS: Midodrine HCl 5 MG TAB PO SCH ×3 (08:15→20:27)
[2023-06-03] MEDS ORDERED: Heparin 10,000 UNITS/ 10 ML VIAL ONE (10:25)
[2023-06-03] MEDS: guaiFENesin ER 600 MG TAB PO SCH ×2 (11:30→20:27)
[2023-06-03] MEDS: Cyanocobalamin (Vitamin B-12) 1,000 MCG TAB PO SCH (11:34)
[2023-06-03] MEDS: Sevelamer Carbonate 800 MG TAB PO SCH ×3 (11:34→18:16)
[2023-06-03] MEDS: Saccharomyces boulardii 250 MG CAP PO SCH (11:35)
[2023-06-03] MEDS: Pancrelipase DR 12,000 1 CAP PO SCH ×3 (11:35→18:16)
[2023-06-03] MEDS: Aspirin 81 mg Enteric Coated Tablet PO SCH (11:35)
[2023-06-03] MEDS: Rosuvastatin 10 MG TAB PO SCH (20:27)
[2023-06-04 08:15] VITALS: TEMP 98.3
[2023-06-04] MEDS: Sevelamer Carbonate 800 MG TAB PO SCH ×3 (09:00→18:27)
[2023-06-04] MEDS: Saccharomyces boulardii 250 MG CAP PO SCH (09:01)
[2023-06-04] MEDS: Cyanocobalamin (Vitamin B-12) 1,000 MCG TAB PO SCH (09:01)
[2023-06-04] MEDS: Midodrine HCl 5 MG TAB PO SCH ×2 (09:01→15:02)
[2023-06-04] MEDS: Aspirin 81 mg Enteric Coated Tablet PO SCH (09:01)
[2023-06-04] MEDS: guaiFENesin ER 600 MG TAB PO SCH (09:01)
[2023-06-04] MEDS: Pancrelipase DR 12,000 1 CAP PO SCH ×3 (09:59→18:26)
[2023-06-04 17:12] VITALS: BP 121/56
== END 2023-06-04 19:29 | DRG 640 ==
LOC: ERS 02:54 → 2NO 06:20
PROVIDERS: ADMIT Student in an Organized Health Care Education/Training Program; ATTEND Family Medicine
PROC: 5A1D70Z Performance of Urinary Filtration, Intermittent, Less than 6 Hours Per Day (ICD-10-PCS; principal; 2023-05-20)
PROC: 5A1D70Z Performance of Urinary Filtration, Intermittent, Less than 6 Hours Per Day (ICD-10-PCS; 2023-05-22)
PROC: 5A1D70Z Performance of Urinary Filtration, Intermittent, Less than 6 Hours Per Day (ICD-10-PCS; 2023-05-25)
PROC: 5A1D70Z Performance of Urinary Filtration, Intermittent, Less than 6 Hours Per Day (ICD-10-PCS; 2023-05-27)
PROC: 5A1D70Z Performance of Urinary Filtration, Intermittent, Less than 6 Hours Per Day (ICD-10-PCS; 2023-05-29)
PROC: 5A1D70Z Performance of Urinary Filtration, Intermittent, Less than 6 Hours Per Day (ICD-10-PCS; 2023-06-01)
DX: E87.70 Fluid overload, unspecified (principal); J96.01 Acute respiratory failure with hypoxia; N18.6 End stage renal disease; J90 Pleural effusion, not elsewhere classified; L03.114 Cellulitis of left upper limb; I47.20 Ventricular tachycardia, unspecified; I47.10 Supraventricular tachycardia, unspecified; I95.89 Other hypotension; E78.5 Hyperlipidemia, unspecified; I10 Essential (primary) hypertension; I48.0 Paroxysmal atrial fibrillation; I08.1 Rheumatic disorders of both mitral and tricuspid valves; Z85.038 Personal history of other malignant neoplasm of large intestine; Z98.890 Other specified postprocedural states; Z88.2 Allergy status to sulfonamides; Z99.2 Dependence on renal dialysis; Z79.82 Long term (current) use of aspirin; Z79.899 Other long term (current) drug therapy
CPT/HCPCS: 36415; 36416; 71045; 80048; 80053; 82570; 83735; 84156; 84484; 85014; 85018; 85025; 85049; 85610; 85730; 87040; 90935; 93005; 93306; G0257; J0696; J1644; J3490

== ENCOUNTER 2023-06-16 09:15 | Inpatient (IN) | payer MEDICARE ==
[2023-06-16 10:16] LABS: #Eosinphils 0.1 thou/uL (0.0-0.7); #Monocytes 0.7 thou/uL (0.11-0.59); #Neutrophils 4.2 thou/uL (1.40-6.50); %Basophils 0.6 % (0.0-1.0); %Eosinophils 1.8 % (0.0-10.0); %Lymphocytes 23.6 % (21.0-51.0); %Monocytes 10.2 % (0.0-10.0); %Neutrophils 63.5 % (42.0-75.0); Hematocrit 35.6 % (36.0-47.0); Hemoglobin 11.6 g/dL (12.0-16.0); Mean Corpuscular HGB CONC 32.6 g/dL (32.0-36.0); Mean Corpuscular Hemoglobin 34.3 pg (27.0-31.0); Mean Corpuscular Volume 105.3 fl (78.0-98.0); Mean Platelet Volume 10.6 fL (7.4-10.4); Platelet Count 143 10x3/uL (130-400); RBC Distribution Width 13.8 % (11.5-14.5); Red Blood Cell (RBC) Count 3.38 mill/uL (4.20-5.40); White Blood Cell (WBC) Count 6.6 10x3/uL (4.8-10.8)
[2023-06-16 10:37] LABS: ALT (SGPT) 8 U/L (8-55); AST (SGOT) 16 U/L (5-34); Albumin 4.1 g/dL (3.4-4.8); Alkaline Phosphatase 69 U/L (40-110); Anion Gap 15 mmol/L (10-20); BUN (Urea Nitrogen) 26 mg/dL (9.8-20.1); Bilirubin, Total 0.5 mg/dL (0.2-1.2); Calc. Creatinine Clearance 0 mL/min (70-130); Calcium 9.1 mg/dL (7.8-10.44); Carbon Dioxide 27 mmol/L (23-31); Chloride 94 mmol/L (98-107); Estimated GFR 8; Glucose 120 mg/dL (83-110); Potassium 3.6 mmol/L (3.5-5.1); Protein, Total 7.1 g/dL (5.8-8.1)
[2023-06-16 10:41] LABS: Troponin I 0.056 ng/mL (< 0.028)
[2023-06-16] MEDS ORDERED: dilTIAZem 25 MG/5 ML VIAL ONE (10:44)
[2023-06-16 10:49] LABS: Sodium 132 mmol/L (136-145)
[2023-06-16] MEDS ORDERED: Acetaminophen 650 MG Suppository PR PRN (14:13)
[2023-06-16] MEDS ORDERED: Acetaminophen 325 MG TAB PO PRN (14:13)
[2023-06-16] MEDS ORDERED: Metoprolol Tartrate 25 MG TAB PO SCH (14:15)
[2023-06-16] MEDS ORDERED: Communication Order-Pharmacy FS ONE (14:39)
[2023-06-16 15:15] VITALS: BMI 25.1
[2023-06-16] MEDS ORDERED: FLU VACC QS2023(65UP)/MF59C/PF 60 MCG/0.5 ML SYRINGE IM ONE (15:30)
[2023-06-16] MEDS ORDERED: Apixaban 2.5 MG TAB PO SCH (21:00)
[2023-06-16] MEDS: Apixaban 2.5 MG TAB PO SCH (21:00)
[2023-06-16] MEDS: Metoprolol Tartrate 25 MG TAB PO SCH (21:00)
[2023-06-17 04:52] LABS: #Basophils 0.1 thou/uL (0.0-0.2); #Eosinphils 0.1 thou/uL (0.0-0.7); #Monocytes 0.6 thou/uL (0.11-0.59); #Neutrophils 3.8 thou/uL (1.40-6.50); %Basophils 0.8 % (0.0-1.0); %Eosinophils 1.8 % (0.0-10.0); %Lymphocytes 27.5 % (21.0-51.0); %Monocytes 9.1 % (0.0-10.0); %Neutrophils 60.5 % (42.0-75.0); Hematocrit 34.3 % (36.0-47.0); Hemoglobin 10.9 g/dL (12.0-16.0); Mean Corpuscular HGB CONC 31.8 g/dL (32.0-36.0); Mean Corpuscular Volume 106.9 fl (78.0-98.0); Mean Platelet Volume 10.6 fL (7.4-10.4); Platelet Count 140 10x3/uL (130-400); RBC Distribution Width 13.9 % (11.5-14.5); Red Blood Cell (RBC) Count 3.21 mill/uL (4.20-5.40); White Blood Cell (WBC) Count 6.3 10x3/uL (4.8-10.8)
[2023-06-17 05:16] LABS: Anion Gap 16 mmol/L (10-20); BUN (Urea Nitrogen) 35 mg/dL (9.8-20.1); Calc. Creatinine Clearance 7 mL/min (70-130); Carbon Dioxide 25 mmol/L (23-31); Chloride 97 mmol/L (98-107); Estimated GFR 7; Glucose 106 mg/dL (83-110); Potassium 3.5 mmol/L (3.5-5.1); Sodium 134 mmol/L (136-145)
[2023-06-17] MEDS ORDERED: Heparin 10,000 UNITS/ 10 ML VIAL ONE (08:47)
[2023-06-17] MEDS: Apixaban 2.5 MG TAB PO SCH ×2 (09:32→22:15)
[2023-06-17] MEDS: Metoprolol Tartrate 25 MG TAB PO SCH ×3 (09:32→22:22)
[2023-06-17] MEDS: Amiodarone 200 MG TAB PO SCH (22:15)
[2023-06-18 04:19] LABS: #Eosinphils 0.2 thou/uL (0.0-0.7); #Monocytes 0.7 thou/uL (0.11-0.59); #Neutrophils 2.9 thou/uL (1.40-6.50); %Basophils 0.6 % (0.0-1.0); %Eosinophils 3.3 % (0.0-10.0); %Lymphocytes 29.9 % (21.0-51.0); %Monocytes 12.2 % (0.0-10.0); %Neutrophils 53.8 % (42.0-75.0); Hematocrit 30.8 % (36.0-47.0); Hemoglobin 9.8 g/dL (12.0-16.0); Mean Corpuscular HGB CONC 31.8 g/dL (32.0-36.0); Mean Corpuscular Volume 106.9 fl (78.0-98.0); Mean Platelet Volume 10.3 fL (7.4-10.4); Platelet Count 131 10x3/uL (130-400); Red Blood Cell (RBC) Count 2.88 mill/uL (4.20-5.40); White Blood Cell (WBC) Count 5.4 10x3/uL (4.8-10.8)
[2023-06-18 04:46] LABS: Anion Gap 15 mmol/L (10-20); BUN (Urea Nitrogen) 27 mg/dL (9.8-20.1); Calc. Creatinine Clearance 8 mL/min (70-130); Calcium 8.8 mg/dL (7.8-10.44); Carbon Dioxide 27 mmol/L (23-31); Chloride 97 mmol/L (98-107); Estimated GFR 9; Glucose 105 mg/dL (83-110); Potassium 3.1 mmol/L (3.5-5.1); Sodium 136 mmol/L (136-145)
[2023-06-18] MEDS ORDERED: Heparin 10,000 UNITS/ 10 ML VIAL ONE (08:48)
[2023-06-18] MEDS: Metoprolol Tartrate 25 MG TAB PO SCH ×2 (12:40→21:58)
[2023-06-18] MEDS: Amiodarone 200 MG TAB PO SCH ×3 (12:41→21:46)
[2023-06-18] MEDS: Apixaban 2.5 MG TAB PO SCH ×2 (12:41→21:45)
[2023-06-18] MEDS: Midodrine HCl 5 MG TAB PO SCH (21:43)
[2023-06-18] MEDS: Rosuvastatin 10 MG TAB PO SCH (21:43)
[2023-06-19 03:41] LABS: #Eosinphils 0.2 thou/uL (0.0-0.7); #Monocytes 0.6 thou/uL (0.11-0.59); #Neutrophils 2.9 thou/uL (1.40-6.50); %Basophils 0.8 % (0.0-1.0); %Eosinophils 3.6 % (0.0-10.0); %Lymphocytes 27.5 % (21.0-51.0); %Neutrophils 55.9 % (42.0-75.0); Hematocrit 30.7 % (36.0-47.0); Hemoglobin 9.8 g/dL (12.0-16.0); Mean Corpuscular HGB CONC 31.9 g/dL (32.0-36.0); Mean Corpuscular Hemoglobin 34.3 pg (27.0-31.0); Mean Corpuscular Volume 107.3 fl (78.0-98.0); Mean Platelet Volume 10.1 fL (7.4-10.4); Platelet Count 141 10x3/uL (130-400); RBC Distribution Width 13.9 % (11.5-14.5); Red Blood Cell (RBC) Count 2.86 mill/uL (4.20-5.40); White Blood Cell (WBC) Count 5.2 10x3/uL (4.8-10.8)
[2023-06-19 04:09] LABS: Anion Gap 14 mmol/L (10-20); BUN (Urea Nitrogen) 20 mg/dL (9.8-20.1); Calc. Creatinine Clearance 11 mL/min (70-130); Calcium 8.6 mg/dL (7.8-10.44); Carbon Dioxide 27 mmol/L (23-31); Chloride 99 mmol/L (98-107); Estimated GFR 11; Glucose 106 mg/dL (83-110); Potassium 3.1 mmol/L (3.5-5.1); Sodium 137 mmol/L (136-145)
[2023-06-19] MEDS: Pancrelipase DR 12,000 1 CAP PO SCH ×3 (10:13→17:33)
[2023-06-19] MEDS: Apixaban 2.5 MG TAB PO SCH ×2 (10:14→21:57)
[2023-06-19] MEDS: Metoprolol Tartrate 25 MG TAB PO SCH ×2 (10:14→21:57)
[2023-06-19] MEDS: Midodrine HCl 5 MG TAB PO SCH ×3 (10:15→21:56)
[2023-06-19] MEDS: Sevelamer Carbonate 800 MG TAB PO SCH ×3 (10:15→17:33)
[2023-06-19] MEDS: Cyanocobalamin (Vitamin B-12) 1,000 MCG TAB PO SCH (10:15)
[2023-06-19] MEDS: Saccharomyces boulardii 250 MG CAP PO SCH (10:16)
[2023-06-19] MEDS: Amiodarone 200 MG TAB PO SCH ×3 (10:16→21:57)
[2023-06-19] MEDS ORDERED: Heparin 10,000 UNITS/ 10 ML VIAL ONE (11:16)
[2023-06-19] MEDS: Rosuvastatin 10 MG TAB PO SCH (21:56)
[2023-06-20 04:44] LABS: #Eosinphils 0.3 thou/uL (0.0-0.7); #Monocytes 0.6 thou/uL (0.11-0.59); %Basophils 0.7 % (0.0-1.0); %Eosinophils 4.3 % (0.0-10.0); %Lymphocytes 33.6 % (21.0-51.0); %Monocytes 10.5 % (0.0-10.0); %Neutrophils 50.6 % (42.0-75.0); Hematocrit 30.5 % (36.0-47.0); Hemoglobin 9.7 g/dL (12.0-16.0); Mean Corpuscular HGB CONC 31.8 g/dL (32.0-36.0); Mean Corpuscular Hemoglobin 34.4 pg (27.0-31.0); Mean Corpuscular Volume 108.2 fl (78.0-98.0); Platelet Count 160 10x3/uL (130-400); RBC Distribution Width 14.1 % (11.5-14.5); Red Blood Cell (RBC) Count 2.82 mill/uL (4.20-5.40); White Blood Cell (WBC) Count 5.8 10x3/uL (4.8-10.8)
[2023-06-20 05:16] LABS: Anion Gap 12 mmol/L (10-20); BUN (Urea Nitrogen) 23 mg/dL (9.8-20.1); Calc. Creatinine Clearance 7 mL/min (70-130); Calcium 8.5 mg/dL (7.8-10.44); Carbon Dioxide 28 mmol/L (23-31); Chloride 101 mmol/L (98-107); Estimated GFR 9; Glucose 122 mg/dL (83-110); Potassium 3.1 mmol/L (3.5-5.1); Sodium 138 mmol/L (136-145)
[2023-06-20] MEDS: Midodrine HCl 5 MG TAB PO SCH ×3 (10:02→21:28)
[2023-06-20] MEDS: Pancrelipase DR 12,000 1 CAP PO SCH ×3 (13:46→18:04)
[2023-06-20] MEDS: Metoprolol Tartrate 25 MG TAB PO SCH ×2 (13:48→21:27)
[2023-06-20] MEDS: Saccharomyces boulardii 250 MG CAP PO SCH (13:48)
[2023-06-20] MEDS: Apixaban 2.5 MG TAB PO SCH ×2 (13:48→21:27)
[2023-06-20] MEDS: Cyanocobalamin (Vitamin B-12) 1,000 MCG TAB PO SCH (13:49)
[2023-06-20] MEDS: Amiodarone 200 MG TAB PO SCH ×3 (13:49→21:28)
[2023-06-20] MEDS: Sevelamer Carbonate 800 MG TAB PO SCH ×4 (13:49→18:05)
[2023-06-20] MEDS: Rosuvastatin 10 MG TAB PO SCH (21:27)
[2023-06-21 05:58] LABS: #Basophils 0.1 thou/uL (0.0-0.2); #Eosinphils 0.2 thou/uL (0.0-0.7); #Monocytes 0.6 thou/uL (0.11-0.59); #Neutrophils 2.9 thou/uL (1.40-6.50); %Basophils 0.9 % (0.0-1.0); %Eosinophils 3.7 % (0.0-10.0); %Lymphocytes 31.6 % (21.0-51.0); %Monocytes 10.8 % (0.0-10.0); %Neutrophils 52.8 % (42.0-75.0); Hemoglobin 10.6 g/dL (12.0-16.0); Mean Corpuscular HGB CONC 31.2 g/dL (32.0-36.0); Mean Corpuscular Hemoglobin 33.9 pg (27.0-31.0); Mean Corpuscular Volume 108.6 fl (78.0-98.0); Mean Platelet Volume 9.8 fL (7.4-10.4); Platelet Count 164 10x3/uL (130-400); RBC Distribution Width 14.4 % (11.5-14.5); Red Blood Cell (RBC) Count 3.13 mill/uL (4.20-5.40); White Blood Cell (WBC) Count 5.5 10x3/uL (4.8-10.8)
[2023-06-21 06:20] LABS: Anion Gap 14 mmol/L (10-20); BUN (Urea Nitrogen) 17 mg/dL (9.8-20.1); Calc. Creatinine Clearance 10 mL/min (70-130); Calcium 8.5 mg/dL (7.8-10.44); Carbon Dioxide 28 mmol/L (23-31); Chloride 101 mmol/L (98-107); Estimated GFR 10; Glucose 100 mg/dL (83-110); Potassium 3.1 mmol/L (3.5-5.1); Sodium 140 mmol/L (136-145)
[2023-06-21] MEDS ORDERED: Potassium Chloride 20 MEQ TAB PO SCH (08:15)
[2023-06-21] MEDS: Sevelamer Carbonate 800 MG TAB PO SCH ×3 (08:47→16:17)
[2023-06-21] MEDS: Pancrelipase DR 12,000 1 CAP PO SCH ×3 (08:47→16:17)
[2023-06-21] MEDS: Midodrine HCl 5 MG TAB PO SCH ×3 (08:48→21:58)
[2023-06-21] MEDS: Amiodarone 200 MG TAB PO SCH ×3 (08:48→21:57)
[2023-06-21] MEDS: Saccharomyces boulardii 250 MG CAP PO SCH (08:48)
[2023-06-21] MEDS: Apixaban 2.5 MG TAB PO SCH ×2 (08:48→21:57)
[2023-06-21] MEDS: Cyanocobalamin (Vitamin B-12) 1,000 MCG TAB PO SCH (08:49)
[2023-06-21] MEDS: Metoprolol Tartrate 25 MG TAB PO SCH ×2 (08:49→22:01)
[2023-06-21] MEDS: Rosuvastatin 10 MG TAB PO SCH (21:57)
[2023-06-22 04:06] LABS: #Basophils 0.1 thou/uL (0.0-0.2); #Eosinphils 0.2 thou/uL (0.0-0.7); #Monocytes 0.6 thou/uL (0.11-0.59); #Neutrophils 3.5 thou/uL (1.40-6.50); %Basophils 0.8 % (0.0-1.0); %Eosinophils 3.5 % (0.0-10.0); %Lymphocytes 27.8 % (21.0-51.0); %Monocytes 9.4 % (0.0-10.0); %Neutrophils 58.2 % (42.0-75.0); Hematocrit 32.4 % (36.0-47.0); Hemoglobin 10.1 g/dL (12.0-16.0); Mean Corpuscular HGB CONC 31.2 g/dL (32.0-36.0); Mean Corpuscular Hemoglobin 33.7 pg (27.0-31.0); Platelet Count 157 10x3/uL (130-400); RBC Distribution Width 14.4 % (11.5-14.5); White Blood Cell (WBC) Count 6.1 10x3/uL (4.8-10.8)
[2023-06-22 04:28] LABS: Anion Gap 14 mmol/L (10-20); BUN (Urea Nitrogen) 13 mg/dL (9.8-20.1); Calc. Creatinine Clearance 11 mL/min (70-130); Calcium 8.4 mg/dL (7.8-10.44); Carbon Dioxide 27 mmol/L (23-31); Chloride 101 mmol/L (98-107); Estimated GFR 11; Glucose 142 mg/dL (83-110); Potassium 3.5 mmol/L (3.5-5.1); Sodium 138 mmol/L (136-145)
[2023-06-22] MEDS: Pancrelipase DR 12,000 1 CAP PO SCH ×3 (08:15→18:03)
[2023-06-22] MEDS: Midodrine HCl 5 MG TAB PO SCH ×3 (08:15→20:10)
[2023-06-22] MEDS: Metoprolol Tartrate 25 MG TAB PO SCH ×2 (08:16→20:10)
[2023-06-22] MEDS: Saccharomyces boulardii 250 MG CAP PO SCH (08:16)
[2023-06-22] MEDS: Sevelamer Carbonate 800 MG TAB PO SCH ×3 (08:16→18:04)
[2023-06-22] MEDS: Cyanocobalamin (Vitamin B-12) 1,000 MCG TAB PO SCH (08:16)
[2023-06-22] MEDS: Amiodarone 200 MG TAB PO SCH ×3 (08:16→20:10)
[2023-06-22] MEDS: Apixaban 2.5 MG TAB PO SCH ×2 (08:16→20:10)
[2023-06-22 19:11] VITALS: BP 132/60; TEMP 98.2
[2023-06-22] MEDS: Rosuvastatin 10 MG TAB PO SCH (20:10)
== END 2023-06-22 20:10 | DRG 308 ==
LOC: ERS 09:15 → 2NO 12:18 → OBSVTOIN 06-19 14:36
PROVIDERS: ADMIT Internal Medicine; ATTEND Internal Medicine Critical Care Medicine
PROC: 5A1D70Z Performance of Urinary Filtration, Intermittent, Less than 6 Hours Per Day (ICD-10-PCS; 2023-06-17)
PROC: B51W1ZZ Fluoroscopy of Dialysis Shunt/Fistula using Low Osmolar Contrast (ICD-10-PCS; principal; 2023-06-18)
PROC: 5A1D70Z Performance of Urinary Filtration, Intermittent, Less than 6 Hours Per Day (ICD-10-PCS; 2023-06-18)
PROC: 5A1D70Z Performance of Urinary Filtration, Intermittent, Less than 6 Hours Per Day (ICD-10-PCS; 2023-06-19)
PROC: 5A1D70Z Performance of Urinary Filtration, Intermittent, Less than 6 Hours Per Day (ICD-10-PCS; 2023-06-20)
PROC: 5A1D70Z Performance of Urinary Filtration, Intermittent, Less than 6 Hours Per Day (ICD-10-PCS; 2023-06-21)
DX: I48.0 Paroxysmal atrial fibrillation (principal); N18.6 End stage renal disease; I12.0 Hypertensive chronic kidney disease with stage 5 chronic kidney disease or end stage renal disease; I95.89 Other hypotension; I95.9 Hypotension, unspecified; D63.1 Anemia in chronic kidney disease; Z88.2 Allergy status to sulfonamides; Z79.82 Long term (current) use of aspirin; Z85.038 Personal history of other malignant neoplasm of large intestine; Z79.899 Other long term (current) drug therapy; Z85.048 Personal history of other malignant neoplasm of rectum, rectosigmoid junction, and anus; Z98.890 Other specified postprocedural states
CPT/HCPCS: 36415; 36901; 71045; 80048; 80053; 83735; 83880; 84484; 85025; 90935; 93005; 96374; C1769; C1887; G0257; G0378; J1644